=== PATIENT | female | born 1955 | race Caucasian/White ===

== ENCOUNTER 2024-05-12 08:21 | Outpatient (REF) | payer MEDICARE, BC, SELFPAY | END 2024-05-12 08:22 | disposition home or self-care (01) | LOC: HO.SH 08:21 | PROVIDERS: Visit Provider Nurse Practitioner Family | DX: Z01.118 Encounter for examination of ears and hearing with other abnormal findings (principal); H90.3 Sensorineural hearing loss, bilateral | CPT/HCPCS: 92557; 92567 ==

== ENCOUNTER 2024-06-07 10:39 | Outpatient (AMB) | payer MEDICARE, BC, SELFPAY ==
--- NOTE | 2024-06-07 10:47 | MHC.OFFVIS ---
Vital Signs 06/07/24 10:49 Height 5 ft 3 in Weight 202 lb 13.204 oz BMI 35.9 BP 130/62 Blood Pressure Location Lt brachial Position Sitting Pulse 66 Intake Visit Reasons: Colonoscopy Screening Intake Note: [facility] presents a new patient for colonoscopy screening. CC: Patient reports that her last colonoscopy was done about 10 years ago and it was normal. Per patient she sometimes feels like if she was punched on her stomach, she gets epigastric pain with radiation to her chest and jaw. She is taking Omeprazole 40 mg daily. Mangle Roller Required: No Accompanied by: Self / Same As Patient Allergies oxycodone [From PERCOCET] Allergy (Mild, Verified 06/07/24 10:54) PARANOID, ANXIETY SHELLFISH Allergy (Unknown, Uncoded 05/17/20 14:57) PASS OUT HPI HPI Colonoscopy Screening: Details: 68-year-old female here for preprocedural meeting to discuss a screening colonoscopy. She is referred by [facility] in [place]. PMX Morbid obesity-BMI 37 Seizure disorder - r/t TIA only once SIADH (? r/t seizure meds) Hypertension High cholesterol Fatty liver Constipation GERD Depression Cataracts osteopenia OA of knees * SURGICAL HISTORY Cholecystectomy Colonoscopy -2010 [facility]= NORMAL EXAM Esophagogastroduodenoscopy-2010 Hysterectomy Pilonidal cyst Sebaceous cyst head cataract surgery arthroscopic knee surgery * ALLERGIES percocet * [employer] LABS: NONE IN OUR SYSTEM She just had some done at [facility] 06/06 that she shows me on her pt portal with normal renal and hepatic panels. TODAY'S VISIT Her maternal grandmother had CRC and her mother had polyps. I confirm that her last scope was in 2010 and was negative. She tried to get in a [facility] but it had to be rescheduled. She had a negative Cologuard last year. She has been having GERD and epigastric pain that she describes as like someone punched me and it will radiate up to my jaw. This has been for a couple of years. It is calmed somewhat with ice water. The pain is random and not r/t eating or moving her bowels. It can be up to 8/10 intensity for 3 to 5 minutes. No dysphagia. She is 10 years s/p josefa. She suffers CIC that she controls with coconut oil in a vitamin and magnesium. OTC laxative give her stomach cramps and then she will pass a bowel withing 4 hours but she tries not to take these unless I really feel bad. She denies any cardiac or respiratory problems. No ID problems There are no prior problems with anesthesia or sedation. Will order EGD/colnoscopy [facility] Medical History Sebaceous cyst Surgical History S/P pilonidal cyst excision History of hysterectomy History of cholecystectomy H/O esophagogastroduodenoscopy H/O colonoscopy Family History Daughter Thyroid cancer Maternal Grandmother Colostomy in place Paternal Grandmother Diabetes Mother HTN (hypertension) Maternal Grandfather Heart disease Social History Alcohol intake: current Alcohol intake frequency: holidays/special occasions only Patient Tobacco Use Status: Former Tobacco user Review of Systems Const Denies fatigue, Denies fever(s), Denies night sweats, Denies poor appetite and Denies weight loss Eyes Details: glasses Reports requires corrective lenses ENT Reports Normal hearing present, Denies dental pain, Denies dysphagia, Reports dizziness, Denies hearing loss, Denies mouth pain, Denies odynophagia, Denies throat swelling, Denies tongue swelling and Reports other (Dentition adequate) Card Reports no additional complaints Resp Reports no additional complaints GI Details: Reports abdominal pain, Denies melena, Denies bloating, Denies hematochezia, Reports constipation, Denies GI cramping, Denies dysphagia, Denies excessive flatus, Denies early satiety, Reports heartburn, Denies diarrhea, Denies nausea, Denies odynophagia, Denies vomiting and Denies hematemesis Skin/Breast Denies pruritus, Denies lesions, Denies rash and Denies jaundice Neuro Reports Normal hearing present, Denies Abnormal speech present, Reports dizziness and Reports memory loss Psych Reports memory loss Endo Denies fatigue Aller/Immun Denies throat swelling and Denies tongue swelling Physical Exam Vital Signs: Last Vital Signs Pulse 66 06/07/24 10:49 BP 130/62 06/07/24 10:49 BMI result Body Mass Index 35.9 Const General: cooperative, no acute distress, well developed and well groomed Nutritional Appearance: well nourished and obese Orientation/consciousness: oriented to person, oriented to place and oriented to time Limitations: No language barrier HEENT Head: Yes normocephalic and Yes atraumatic Eyes General: appearance normal, both eyes and all related structures Pupils: Equal, round and reactive pupils present Neck Neck: Yes normal visual inspection and Yes no lymphadenopathy Thyroid: Thyroid normal Resp Effort & Inspection: normal respiratory effort and able to speak in complete sentences Auscultation: clear to auscultation bilaterally Cardio Rate: regular rate Rhythm: regular rhythm Heart sounds: Normal, physiologic split S2 sound present Peripheral pulses: radial pulses present and posterior tibial pulses present GI Inspection: No distended, Yes Abdominal panniculus present and Yes obesity Palpation (GI): Soft to palpation, nontender, no guarding, not rigid and No hepatosplenomegaly present Percussion: Yes normal to percussion Auscultation: normal bowel sounds Rectal Exam - Female: deferred Abdomen image: 1. surgical scars 2. 3. Skin General skin exam: no rashes or lesions noted, turgor normal, skin not dry, no jaundice, No spider nevi and no striae Rashes: no rashes Nails: normal Neuro General: oriented to person, oriented to place and oriented to time Cranial nerves: Yes Equal, round and reactive pupils present and Yes Normal hearing present Speech: No Abnormal speech present Extrem General: Yes normal to inspection, No clubbing, No cyanosis and No edema Psych Appearance: grossly normal and well kempt Mental Status: mental status grossly normal Speech and movement: Normal speech and movement present Affect: normal affect Attitude: cooperative Thought process: Normal thought process present and not confabulating Thought content: Normal thought content present Insight: Fair insight present (Psych) Judgement: Fair judgement present (Psych) Assessment & Plan Assessment & Plan (1) Pre-op examination: Code(s): Z01.818 - Encounter for other preprocedural examination Category: Medical (2) Epigastric pain: Code(s): R10.13 - Epigastric pain Category: Medical (3) GERD (gastroesophageal reflux disease): Code(s): K21.9 - Gastro-esophageal reflux disease without esophagitis Category: Medical (4) Morbid obesity: Code(s): E66.01 - Morbid (severe) obesity due to excess calories Category: Medical (5) Seizure disorder: Code(s): G40.909 - Epilepsy, unspecified, not intractable, without status epilepticus Category: Medical Plan Her maternal grandmother had CRC and her mother had polyps. I confirm that her last scope was in 2010 and was negative. She tried to get in a [facility] but it had to be rescheduled. She had a negative Cologuard last year. She has been having GERD and epigastric pain that she describes as like someone punched me and it will radiate up to my jaw. This has been for a couple of years. It is calmed somewhat with ice water. The pain is random and not r/t eating or moving her bowels. It can be up to 8/10 intensity for 3 to 5 minutes. No dysphagia. She is 10 years s/p josefa. She suffers CIC that she controls with coconut oil in a vitamin and magnesium. OTC laxative give her stomach cramps and then she will pass a bowel withing 4 hours but she tries not to take these unless I really feel bad. She denies any cardiac or respiratory problems. No ID problems There are no prior problems with anesthesia or sedation. Will order EGD/colnoscopy Orders: Orders EGD/[place] Combo - GI Use Only Today R10.13 - Epigastric pain, Z01.818 - Encounter for other preprocedural examination [place] barium swallow Today K21.9 - Gastro-esophageal reflux disease without esophagitis Medications: New polyethylene glycol 3350 (Miralax) 238 grams PO ONCE 238 grams 0RF colonoscopy prep 1 day bisacodyl (Dulcolax (bisacodyl)) 10 mg (2 x 5 mg) PO BEDTIME 4 tabs 0RF 2 days Coding Level of Care Code New Pt Level 3 (91017) Diagnoses Pre-op examination Z01.818 Epigastric pain R10.13 GERD (gastroesophageal reflux disease) K21.9 Morbid obesity E66.01 Seizure disorder G40.909
[2024-06-07 10:49] VITALS: BP 130/62; PULSE 66; BMI 35.9
== END 2024-06-07 11:41 | disposition home or self-care (01) ==
PROVIDERS: PCP Hospitalist; Visit Provider Nurse Practitioner
DX: Z01.818 Encounter for other preprocedural examination (principal); R10.13 Epigastric pain; K21.9 Gastro-esophageal reflux disease without esophagitis; E66.01 Morbid (severe) obesity due to excess calories; G40.909 Epilepsy, unspecified, not intractable, without status epilepticus
CPT/HCPCS: 99203

== ENCOUNTER → 2024-06-07 10:39 | Outpatient (BNVA) | payer SELFPAY | PROVIDERS: PCP Hospitalist; Visit Provider Nurse Practitioner | DX: Z01.818 Encounter for other preprocedural examination (principal); R10.13 Epigastric pain; K21.9 Gastro-esophageal reflux disease without esophagitis; E66.01 Morbid (severe) obesity due to excess calories; Z68.35 Body mass index [BMI] 35.0-35.9, adult; G40.909 Epilepsy, unspecified, not intractable, without status epilepticus | CPT/HCPCS: 99202 ==

== ENCOUNTER 2024-08-29 08:20 | Outpatient (REF) | payer MEDICARE, BC, SELFPAY ==
--- NOTE | ~2024-08-29 | FL_ITS ---
EXAMINATION: XR FLUOROSCOPY UPPER GI WITH AIR CLINICAL INFORMATION: Reflux. COMPARISON: None TECHNIQUE: Fluoroscopic air contrast upper GI examination was performed utilizing standard techniques with thin and thick barium and effervescent granules. Numerous spot images were obtained. FINDINGS: Dual and single contrast images of the esophagus demonstrate a mildly patulous esophagus with a normal contour. There is a granular appearance of the esophageal mucosa with multiple well-circumscribed filling defects noted throughout the midesophagus. No strictures, masses, or ulcerations are seen. There is to and fro motion of the barium, with nonpropulsive tertiary contractions noted throughout the esophagus. A small type I hiatal hernia is present. No significant gastroesophageal reflux was seen during the course of the examination and on reflux views. Dual contrast and single contrast images of the stomach demonstrated a normal contour. The gastric rugal folds have a mildly thickened appearance, suggestive of gastritis. No masses or ulcerations are seen. Contrast freely passed into the gastric antrum and duodenal bulb without delay. Single and air-contrast images of the duodenal bulb demonstrate no abnormality. The duodenal sweep has a normal appearance, course, and mucosal fold appearance. The imaged proximal jejunum has a normal fold pattern and caliber. FLUOROSCOPY TIME: 4 minutes 20 seconds Number of Spot Images: 10 Number of Cine: 9 DOSE AREA PRODUCT: 3127 uGy-m2 (microgray-meter squared) FL/FL barium swallow IMPRESSION: 1. Mildly patulous esophagus with severely disorganized esophageal peristalsis consistent with esophageal dysmotility. 2. Granular appearance of the esophageal mucosa with multiple well-circumscribed filling defects noted throughout the midesophagus. This is suggestive of esophagitis. Other etiologies including candidiasis and Arevalo's esophagus cannot be ruled out. Recommend correlation with EGD. 3. Small type I hiatal hernia. 4. Mildly thickened appearance of the gastric rugal folds, suggestive of gastritis. This procedure was performed by Carlos Waldron PA-C, and supervised by Dr. Diggs Electronically signed by: Nishant Diggs MD 08/29/2024 03:15 PM [facility]
--- OUTSIDE RECORDS SUMMARY | 2024-08-29 08:24 | XMS_ITS | Continuity of Care Document ---
Author Organization [facility] Address [address] [place] [address]- Care Team Providers Care [place] Name Role Phone Derek PAINTER, Tiara Primary Care Physician [phone] Encounter [facility] Date(s): 07/29/24 - 08/28/24 [facility] [address] [place] [id number] Attending Physician: AdmtrFelicity Admitting Physician: AdmtrFelicity Referring Physician: Admtr, Ar8 Encounter Type: Triage Allergies, Adverse Reactions, Alerts Substance Criticality Severity Reaction Reaction Severity Status shellfish anaphylaxis Active Bee Stings anaphylaxis Active Percocet Depression Acti ve Immunizations Given and Recorded Vaccine Date Status Refusal Reason influenza virus vaccine, inactivated 05/14/24 Juanito rded influenza virus vaccine, inactivated 05/24/23 Juanito rded influenza virus vaccine, inactivated 05/27/22 Juanito rded influenza virus vaccine, inactivated 05/26/21 Juanito rded influenza virus vaccine, inactivated 05/26/20 Juanito rded influenza virus vaccine, inactivated 1 05/22/18 Gi bhupendra influenza virus vaccine, inactivated 06/04/17 Give n influenza virus vaccine, inactivated 09/09/16 Give n influenza virus vaccine, inactivated 06/28/15 Give n influenza virus vaccine, inactivated 09/22/14 Give n influenza virus vaccine, inactivated 2 08/04/13 Gi bhupendra SARS-CoV-2(COVID-19)mRNA-LNP vac([id number]) 05/14/24 Recorded SARS-CoV-2(COVID-19)mRNA-LNP vac([id number]) 05/24/23 Recorded RSV vaccine preF3, recombinant 08/26/23 Recorded SARS-CoV-2 (COVID-19) mRNA-1273 vaccine 05/27/22 R ecorded SARS-CoV-2 (COVID-19) mRNA-1273 vaccine 08/26/21 R ecorded SARS-CoV-2 (COVID-19) mRNA-1273 vaccine 01/02/21 R ecorded SARS-CoV-2 (COVID-19) mRNA-1273 vaccine 12/04/20 R ecorded Zoster Vaccine Live 3 07/27/20 Recorded zoster vaccine, inactivated 05/26/20 Recorded pneumococcal 13-valent vaccine 4 11/01/19 Given Influenza Virus Vaccine (oldterm) 06/22/19 Recorde d pneumococcal 23-valent vaccine 09/09/16 Given FluLaval (oldterm) 05/11/12 Given FluLaval (oldterm) 07/29/10 Given tetanus/diphtheria/pertussis, acel(Tdap) 11/20/10 Given Influenza Inactive (IM) (oldterm) 07/20/08 Given tetanus-diphtheria toxoids (Td) 07/31/01 Given [facility] 2Admin Note: [facility] 3Result Comment: zoster lot [id number] exp 04-26-2022 [facility] 4Result Comment: [facility]# [id number] Medications (Vitamin D3) Cholecalciferol 400 SNF units/mL oral syringe 1 mL = 10 mcg, By Mouth, Daily, 0 Refills, Maintenance, 03/31/23 8:39:00 AM EDT, Partial fill upon patientrequest if the prescription is for a schedule II opioid drug. Start Date: 03/31/23 Status: Ordered Repeat number: 1 aspirin 81 mg oral tablet 1 tablet = 81 mg, By Mouth, Daily, 0 Refills, Maintenance, 09/08/18 11:19:25 AM EST Start Date: 09/08/18 Status: Ordered Repeat number: 1 busPIRone 7.5 mg oral tablet 1 tablet, By Mouth, 2 times a day, # 180 tablet, 1 Refills, Maintenance, 08/05/24 8:42:00 AM EST, [id number], 160, cm, 08/03/24 7:57:00 EST, Height, 93.3, kg, 07/01/24 8:49:00 EDT, Dry Weight Start Date: 08/05/24 Stop Date: 09/04/24 Status: Ordered Quantity: 180.0 Unit: tablet Repeat number: 1 cholecalciferol 4000 intl units oral tablet 1 tablet = 4,000 International_Units, By Mouth, Daily, Maintenance, 09/29/19 10:33:00 PM EST, Tablet Start Date: 09/29/19 Status: Ordered Repeat number: 1 escitalopram 5 mg oral tablet 1 tablet = 5 mg, By Mouth, Daily, # 90 tablet, 3 Refills, Maintenance, 08/03/24 8:36:00 AM EST, Tablet, [facility]/pharmacy #[id number], Partial fill upon patient request if the prescription is for a schedule II opioid drug., 160, cm, 08/03/24 7:57:00 EST, Height, 93.3, kg, 07/01/24 8:49:00 EDT, Dry Weight Start Date: 08/03/24 Status: Ordered Quantity: 90.0 Unit: tablet Repeat number: 4 Indication: Major depressive disorder, single episode, mild Hemp cream for back Hemp cream for back, Refills 0, Maintenance, 09/24/21 9:57:00 AM EST, Supply Start Date: 09/24/21 Status: Ordered Repeat number: 1 Home Blood Pressure Monitor See Instructions, # 1 each, Maintenance, Arm cuff with digital readout DX : Severe hypertension, 08/16/21 2:25:00 PM EST, Supply Start Date: 08/16/21 Status: Ordered Quantity: 1.0 Unit: each Repeat number: 1 Lotrel 10 mg-40 mg oral capsule 1 capsule, By Mouth, Daily, # 90 capsule, 3 Refills, Maintenance, 08/03/24 8:22:00 AM EST, Capsule, [facility]/pharmacy #[id number], Partial fill upon patient request if the prescription is for a schedule II opioid drug., 1 capsule By Mouth Daily, 160, cm, 08/03/24 7:57:00 EST, Height, 93.3, kg, 07/01/24 8:49:00EDT, Dry Weight Start Date: 08/03/24 Status: Ordered Quantity: 90.0 Unit: capsule Repeat number: 4 Indication: Essential (primary) hypertension Magnesium Carbonate = 54 mg, By Mouth, Daily, 0 Refills, Maintenance, 06/01/20 3:29:00 PM EDT Start Date: 06/01/20 Status: Ordered Repeat number: 1 Misc Rx See Instructions, Refills 0, Maintenance, 07/30/21 11:58:00 AM EST, Supply Start Date: 07/30/21 Status: Ordered Repeat number: 1 omeprazole 40 mg oral enteric coated capsule 1 capsule, By Mouth, Daily, # 90 capsule, 1 Refills, Maintenance, 03/08/24 1:54:00 PM EDT, [id number], 160, cm, 11/16/23 12:43:00 EDT, Height, 91, kg, 09/30/23 7:53:00 EST, Dry Weight Start Date: 03/08/24 Status: Ordered Quantity: 90.0 Unit: capsule Repeat number: 1 rosuvastatin 20 mg oral tablet 1 tablet = 20 mg, By Mouth, Daily, # 90 tablet, 3 Refills, Maintenance, 08/12/24 9:26:00 AM EST, Tablet, [id number], Partial fill upon patient request if the prescription is for a schedule IIopioid drug., 160, cm, 08/03/24 7:57:00 EST, Height, 93.3, kg, 07/01/24 8:49:00 EDT, Dry Weight Start Date: 08/12/24 Stop Date: 08/07/25 Status: Ordered Quantity: 90.0 Unit: tablet Repeat number: 4 Problem List Condition Confirmation Course Effective Dates Status Health Status Informant Anxiety Confirmed Active Cataract bilat Confirmed 2004 Active Cerebrovascular disease Confirmed Active Constipation NOS Confirmed 03/06/11 Active Fatty liver Confirmed Active Gastric reflux Confirmed Active 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 Confirmed Active Hx-TIA (transient ischemic attack) Confirmed Active Hypercholesteremia Confirmed Active Hypertension Confirmed Active Irritable bowel syndrome Confirmed Active Mild major depression Confirmed Active Prediabetes Confirmed Active Severe obesity (BMI 35.0-39.9) with comorbidity Confirmed Active Thyroid nodules - 1 right, 1 left, both TiRads 2018 , no f/u needed Confirmed Active Social History Social History Type Response Smoking Status Former smoker; Other : Quit 1981; entered on: 01/29/18 Sex Sex Representation Female (finding) Patient Care team information Care Team Personnel Name: Sekou Gonzalez MD Position: [facility] Renal MD Member Role: Lifetime Consulting Physician Address: [address] [place] [address] [address] [facility] [place] [address]- [place] Telecom: Name: Luz Elena Higgins RN Position: [facility] RN Member Role: Primary Care Nurse Name: Carlos Shipman RN Position: [facility] Outreach Member Role: Primary Care Nurse Name: Tiara Reed MD Position: [facility] Physician - Primary Care Member Role: PCP Address: [address] [place] [phone]- [place] Telecom: Care Team Related Persons Name: MARCO ANTONIO CAM Name: AGUSTIN JOHNSON Insurance Providers Guarantor name: LYNNE JOHNSON Health Plan Information #: 1 Payer: MEDICARE PART B OUTPT Member Number: NA Policy Number: NA Group Number: NA Health Plan Information #: 2 Payer: BLUE MEDICARE SUPPL Member Number: NA Policy Number: NA Group Number: NA
--- OUTSIDE RECORDS SUMMARY | 2024-08-29 08:24 | XMS_ITS | Continuity of Care Document ---
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 Name Role Phone Derek PAINTER, Tiara Primary Care Physician Encounter [facility] Date(s): 07/25/24 - 08/24/24 [facility] [address] [place] [address] Attending Physician: AdmFelicity mccurdy Admitting Physician: AdmtrFelicity Referring Physician: Admtr, Ar8 [...] influenza virus vaccine, inactivated 2 08/04/13 Gi bhuepndra SARS-CoV-2(COVID-19)mRNA-LNP vac([id number]) 05/14/24 Recorded SARS-CoV-2(COVID-19)mRNA-LNP vac([id number]) 05/24/23 Recorded RSV vaccine preF3, recombinant 08/26/23 [...] [id number] exp 04-26-2022 [facility] 4Result Comment: [facility]# [id number] Medications (Vitamin D3) Cholecalciferol 400 SKILLED NURSING units/mL oral syringe 1 mL = 10 [...] Maintenance, 08/05/24 8:42:00 AM EST, [id number], 160, cm, 08/03/24 7:57:00 EST, Height, 93.3, [...] Refills, Maintenance, 08/03/24 8:36:00 AM EST, Tablet, [facility]/pharmacy #[id number], Partial fill upon patient request [...] Refills, Maintenance, 08/03/24 8:22:00 AM EST, Capsule, [facility]/pharmacy #[id number], Partial fill upon patient request if the prescription is for a schedule II opioid drug., 1 capsule By Mouth Daily, 160, cm, 08/03/24 7:57:00 EST, Height, 93.3, kg, 07/01/24 8:49:00EDT, Dry Weight Start Date: 08/03/24 Status: Ordered Quantity: 90.0 Unit: capsule Repeat number: 4 Indication: Essential (primary) hypertension Magnesium Carbonate = 54 mg, By Mouth, Daily, 0 Refills, Maintenance, 10/2/20 3:29:00 PM EDT Start Date: 06/01/20 Status: Ordered Repeat number: 1 Misc Rx See Instructions, Refills 0, Maintenance, 07/30/21 11:58:00 AM EST, Supply Start Date: 07/30/21 Status: Ordered Repeat number: 1 omeprazole 40 mg oral enteric coated capsule 1 capsule, By Mouth, Daily, # 90 capsule, 1 Refills, Maintenance, 03/08/24 1:54:00 PM EDT, [id number], 160, cm, 11/16/23 12:43:00 EDT, Height, 91, [...] Team Personnel Name: Sekou Gonzalez MD Position: [facility] Renal MD Member Role: Lifetime Consulting Physician Address: [address] [place] [address] [address] [place] [address]- [place] Telecom: Name: Luz Elena Higgins RN Position: [facility] RN Member Role: Primary Care Nurse Name: Carlos Shipman RN Position: [facility] Outreach Member Role: Primary Care Nurse Name: Tiara Reed MD Position: [facility] Physician - Primary Care Member Role: PCP Address: [address] [place] [phone]- Telecom: Care Team Related Persons Name: MARCO ANTONIO CAM Name: AGUSTIN JOHNSON Insurance Providers Guarantor name: LYNNE JOHNSON Health Plan Information #: 1 Payer: MEDICARE PART B OUTPT Member Number: NA Policy Number: NA Group Number: NA Health Plan Information #: 2 Payer: BLUE MEDICARE SUPPL Member Number: NA Policy Number: NA Group Number: NA
--- OUTSIDE RECORDS SUMMARY | 2024-08-29 08:24 | XMS_ITS | Continuity of Care Document ---
Author Organization [facility] Mahendra Pedro lt Address [address] [place] [address]- Care Team Providers Care Medication Tech Name Role Phone Thao MERRITT, Debra Caldwell Primary Care Physician Encounter [facility] [facility] R [id number] Date(s): 07/01/24 - 07/31/24 [facility] Adult [address] [place] [address]- Encounter Type: Triage Allergies, Adverse Reactions, Alerts Substance Criticality Severity Reaction Reaction Severity Status shellfish anaphylaxis Active Bee Stings anaphylaxis Active Percocet 5/ Depression Acti ve Immunizations Given and Recorded [...] vaccine, inactivated 2 08/04/13 Gi bhupendra SARS-CoV-2(COVID-19)mRNA-LNP vac([id number]) 05/14/24 Recorded SARS-CoV-2(COVID-19)mRNA-LNP vac([id number]) 05/24/23 Recorded RSV vaccine preF3, recombinant 08/26/23 [...] tetanus-diphtheria toxoids (Td) 07/31/01 Given 1Admin Note: [facility] 2Admin Note: FLUARIX 3Result Comment: zoster lot [id number] exp 04-26-2022 [facility] 4Result Comment: [facility]# [id number] Medications (Vitamin D3) Cholecalciferol 400 CORRECTION units/mL oral syringe 1 mL = 10 mcg, By Mouth, Daily, 0 Refills, Maintenance, 03/31/23 8:39:00 AM EDT, Partial fill upon patientrequest if the prescription is for a schedule II opioid drug. Start Date: 03/31/23 Status: Ordered Repeat number: 1 amLODIPine 5 mg oral tablet 5 mg, 1, tablet, By Mouth, Daily, # 90 tablet, Refills 3, Tot. Refills 3, Maintenance, 11/16/23 12:51:00 PM EDT, Route to Pharmacy Electronically, [facility]/pharmacy #[id number], Partial fill upon patient requestif the prescription is for a schedule II opioid drug., 160, cm, 11/16/23 12:43:00 EDT, Height, 91, kg, 09/30/23 7:53:00 EST, Dry Weight Start Date: 11/16/23 Status: Ordered Quantity: 90.0 Unit: tablet Repeat number: 4 Indication: Essential (primary) hypertension aspirin 81 mg oral tablet 1 tablet = 81 mg, By Mouth, Daily, 0 Refills, Maintenance, 09/08/18 11:19:25 AM EST Start Date: 09/08/18 Status: Ordered Repeat number: 1 chlorthalidone 25 mg oral tablet 0.5, tablet, By Mouth, Daily, # 45 tablet, Refills 0, Tot. Refills 0, Maintenance, 04/04/24 1:42:00 PM EDT, Route to Pharmacy Electronically, [facility]/pharmacy #[id number], 160, cm, 04/04/24 12:52:00 EDT, Height,91, kg, 09/30/23 7:53:00 EST, Dry Weight Start Date: 04/04/24 Status: Ordered Quantity: 45.0 Unit: tablet Repeat number: 1 Indication: Essential (primary) hypertension cholecalciferol 4000 intl units oral tablet 1 tablet = 4,000 International_Units, By Mouth, Daily, Maintenance, 09/29/19 10:33:00 PM EST, Tablet Start Date: 09/29/19 Status: Ordered Repeat number: 1 escitalopram 20 mg oral tablet See Instructions, TAKE 1 TABLET BY MOUTH EVERY DAY, # 90 tablet, 3 Refills, Maintenance, 12/07/23 11:43:00 AM EDT, [facility] STORE 30065, 160, cm, 11/16/23 12:43:00 EDT, Height, 91, kg, 09/30/23 7:53:00 EST,Dry Weight Start Date: 12/07/23 Status: Ordered Quantity: 90.0 Unit: tablet Repeat number: 1 Hemp cream for back Hemp cream for back, Refills 0, Maintenance, 09/24/21 9:57:00 AM EST, Supply Start Date: 09/24/21 Status: Ordered Repeat number: 1 Home Blood Pressure Monitor See Instructions, # 1 each, Maintenance, Arm cuff with digital readout DX : Severe hypertension, 08/16/21 2:25:00 PM EST, Supply Start Date: 08/16/21 Status: Ordered Quantity: 1.0 Unit: each Repeat number: 1 lisinopril 40 mg oral tablet 1 tablet, By Mouth, Daily, # 90 tablet, 3 Refills, Maintenance, 12/11/23 5:49:00 PM EDT, [facility] STORE [id number], 160, cm, 11/16/23 12:43:00 EDT, Height, 91, kg, 09/30/23 7:53:00 EST, Dry Weight Start Date: 12/11/23 Status: Ordered Quantity: 90.0 Unit: tablet Repeat number: 1 Magnesium Carbonate = 54 mg, By Mouth, [...] 1 Refills, Maintenance, 03/08/24 1:54:00 PM EDT, [facility] STORE [address]2812, 160, cm, 11/16/23 12:43:00 EDT, Height, 91, kg, 09/30/23 7:53:00 EST, Dry Weight Start Date: 03/08/24 Status: Ordered Quantity: 90.0 Unit: capsule Repeat number: 1 rosuvastatin 10 mg oral tablet 1 tablet, By Mouth, Daily, # 90 tablet, 3 Refills, 11/16/23 12:53:00 PM EDT, [facility]/pharmacy #[id number], 160, cm, 11/16/23 12:43:00 EDT, Height, 91, kg, 09/30/23 7:53:00 EST, Dry Weight Start Date: 11/16/23 Status: Ordered Quantity: 90.0 Unit: tablet Repeat number: 4 Indication: Pure hypercholesterolemia, unspecified sucralfate 1 gm oral tablet 1 Gm, 1, tablet, By Mouth, 4 times a day, on an empty stomach, 1 hours prior to meals., # 120 tablet, Refills 0, Tot. Refills 0, Maintenance, 08/18/22 5:54:00 PM EST, Route to Pharmacy Electronically, [facility]/pharmacy #[id number], Partial fill upon patient request if the prescription is for a schedule II opioid drug., 160, cm, 08/18/22 10:46:00 EST, Height Start Date: 08/18/22 Status: Ordered Quantity: 120.0 Unit: tablet Repeat number: 1 Indication: Epigastric pain tiZANidine 4 mg oral tablet 4 mg, 1, tablet, By Mouth, 3 times a day, PRN, # 30 tablet, Refills 0, Tot. Refills 0, Maintenance,Pain , Severe, 11/07/22 3:21:00 PM EST, Route to Pharmacy Electronically, [facility]/pharmacy #[id number], Partial fill upon patient request if the prescription is for a schedule II opioid drug., 160, cm, 11/07/2313:43:00 EST, Height Start Date: 11/07/22 Status: Ordered Quantity: 30.0 Unit: tablet Repeat number: 1 Indication: Other muscle spasm Problem List Condition Confirmation Course Effective Dates Status Health Status Informant Cataract bilat Confirmed 2004 Active Cerebrovascular disease Confirmed Active Constipation NOS Confirmed 03/06/11 Active Fatty liver Confirmed Active Gastric reflux Confirmed Active 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 Confirmed Active Hypercholesteremia Confirmed Active Hypertension Confirmed Active Irritable bowel syndrome Confirmed Active Mild major depression Confirmed Active Severe obesity (BMI 35.0-39.9) with comorbidity Confirmed Active Thyroid nodules - 1 right, 1 left, both TiRads 2018 , no f/u needed Confirmed Active Social History Social History Type Response Smoking Status Former smoker; Other : Quit 1981; entered on: 01/29/18 Sex Sex Representation Female (finding) Patient Care team information Care Team Personnel Name: Carlos PAINTER, Sekou Villalobos Position: [facility] Renal MD Member Role: Lifetime Consulting Physician Address: [address] [place] [address] [address] [place] [address]- Telecom: Name: Luz Elena Higgins RN Position: [facility] RN Member Role: Primary Care Nurse Name: Carlos Shipman RN Position: [facility] Outreach Member Role: Primary Care Nurse Name: Debra Osuna NP Position: [facility] PCO Associate Professional Member Role: PCP Address: [address] [place] [address]- Telecom: Care Team Related Persons Name: MARCO ANTONIO CAM Name: AGUSTIN JOHNSON Insurance Providers Guarantor name: LYNNE JOHNSON Health Plan Information #: 1 Payer: MEDICARE PART B OUTPT Member Number: NA Policy Number: KIM Group Number: NA Health Plan Information #: 2 Payer: BLUE MEDICARE SUPPL Member Number: NA Policy Number: NA Group Number: NA
--- OUTSIDE RECORDS SUMMARY | 2024-08-29 08:24 | XMS_ITS | Continuity of Care Document ---
Author Organization [facility] Pedro lt Address [address] [place] [address]- Care Team Providers Care Field Foreman Name Role Phone Debra Osuna NP Primary Care Physician [phone] Encounter [facility] Date(s): 08/03/24 - 08/10/24 [facility] Adult [address] [place] [address]- Encounter Diagnosis Prediabetes(Discharge Diagnosis) - 08/02/24 Hypertension(Discharge Diagnosis) - 08/02/24 Hypercholesteremia(Discharge Diagnosis) - 08/02/24 Mild major depression(Discharge Diagnosis) - 08/02/24 Severe obesity (BMI 35.0-39.9) with comorbidity(Discharge Diagnosis) - 08/02/24 Gastric reflux(Discharge Diagnosis) - 08/02/24 Encounter to establish care with new doctor(Discharge Diagnosis) - 08/02/24 Anxiety(Discharge Diagnosis) - 08/03/24 Hx-TIA (transient ischemic attack)(Discharge Diagnosis) - 08/03/24 Attending Physician: Tiara Reed MD Encounter Type: Office Visit Allergies, Adverse Reactions, Alerts Substance Criticality Severity Reaction Reaction Severity Status shellfish anaphylaxis Active Bee Stings anaphylaxis Active Percocet 5/325 Depression Acti ve Immunizations Given and Recorded [...] vaccine, inactivated 2 08/04/13 Gi bhupendra SARS-CoV-2(COVID-19)mRNA-LNP vac([id number]) 05/14/24 Recorded SARS-CoV-2(COVID-19)mRNA-LNP vac([id number]) 05/24/23 Recorded RSV vaccine preF3, recombinant 08/26/23 [...] 9h3z4 exp 04-26-2022 [facility] 4Result Comment: [facility]# [id number] Medications (Vitamin D3) Cholecalciferol 400 RESIDENTIAL units/mL oral syringe 1 mL = 10 [...] 1 Refills, Maintenance, 08/05/24 8:42:00 AM EST, [facility] STORE [facility], 160, cm, 08/03/24 7:57:00 EST, Height, 93.3, [...] Refills, Maintenance, 08/03/24 8:36:00 AM EST, Tablet, [facility]/pharmacy #[id number], Partial fill upon patient request [...] Refills, Maintenance, 08/03/24 8:22:00 AM EST, Capsule, [id number], Partial fill upon patient request [...] Maintenance, 03/08/24 1:54:00 PM EDT, [facility], 160, cm, 11/16/23 12:43:00 EDT, Height, 91, kg, 09/30/23 7:53:00 EST, Dry Weight Start Date: 03/08/24 Status: Ordered Quantity: 90.0 Unit: capsule Repeat number: 1 rosuvastatin 20 mg oral capsule 1 capsule = 20 mg, By Mouth, Daily, # 90 capsule, 3 Refills, Maintenance, 08/03/24 8:27:00 AM EST, Capsule, [id number], Partial fill upon patient request if the prescription is for a schedule II opioid drug., 160, cm, 08/03/24 7:57:00 EST, Height, 93.3, kg, 07/01/24 8:49:00 EDT, Dry Weight Start Date: 08/03/24 Status: Ordered Quantity: 90.0 Unit: capsule Repeat number: 4 Indication: Pure hypercholesterolemia, unspecified Problem List Condition Confirmation Course Effective Dates [...] 2018 , no f/u needed Confirmed Active Diagnosis Diagnosis Type Effective Dates Health Status Clinical Service Informant Prediabetes Discharge Diagnosis 08/02/24 Hypertension Discharge Diagnosis 08/02/24 Hypercholesteremia Discharge Diagnosis 08/02/24 Mild major depression Discharge Diagnosis 08/02/24 Severe obesity (BMI 35.0-39.9) with comorbidity Discharge Diagnosis 08/02/24 Gastric reflux Discharge Diagnosis 08/02/24 Encounter to establish care with new doctor Discharge Diagnosis 08/02/24 Anxiety Discharge Diagnosis 08/03/24 Hx-TIA (transient ischemic attack) Discharge Diagnosis 08/03/24 Vital Signs Most recent to oldest [Reference Range]: 1 Height 160 cm (08/03/24 7:57 AM) Weight 94.9 kg (08/03/24 7:57 AM) Oxygen Saturation [94-100 %] 99 % (08/03/24 7:57 AM) Pulse Rate [55-90 bpm] 68 bpm (08/03/24 7:57 AM) Body Mass Index [18.5-24.99 kg/m2] 37.07 kg/m2 *>HHI* (08/03/24 7:57 AM) Blood Pressure [90-138/55-84 mm Hg] 148/ 81mm Hg *H* (08/03/24 7:57 AM) Blood pressure sites Arm, left (08/03/24 7:57 AM) Weight Obtained Via Standing scale (08/03/24 7:57 AM) Social History Social History Type Response Smoking Status Former smoker; Other : Quit 1981; entered on: 01/29/18 Sex Sex Representation Female (finding) Note * Everton Estrada: PERFORM Event Display: Patient Education/Instruction Authored Date: [id number] Ambulatory Adult Visit Summary [facility] Adult [address] [id number] Name: LYNNE JOHNSON : 1955?? Visit: 08/03/2024 07:44?? Ambulatory Visit Instructions ?? Your Care Team Primary Care Provider Debra Osuna NP? This Visit Provider Tiara Reed MD Your Diagnosis Prediabetes Hypertension Hypercholesteremia Mild major depression Severe obesity (BMI 35.0-39.9) with comorbidity Gastric reflux Encounter to establish care with new doctor Anxiety Vitals Signs Pulse Rate: 68 bpm Height: 160 cm Systolic Blood Pressure:??148 mm Hg??High Weight: 94.9 kg Diastolic Blood Pressure: 81 mm Hg Body Mass Index:??37.07 kg/m2??Critical Oxygen Saturation: 99 % Body surface area: 2.05 What to do next Scheduled Follow-Up Appointments 2024 7:40 AM EST ?? Where: [facility] [address] [place] [address]- Status: Pending Thursday 11:00 AM EST ?? With: Tiara Reed MD Where: [address] [address]- Status: Pending Future Orders Lipid Panel - Routine, Once, 11/16/23 12:55:00 EDT, Future Order, [facility], Blood?? Lipid Panel - Routine, Once, 04/04/24 14:37:00 EDT, Future Order, [facility], Blood?? Medications The list below reflects the information in our records and provided by you today along with any changes made during this visit. Please continue your medications until treatment is completed or stopped by your provider. If this is different from the information you have or there are other questions,please contact the prescribing provider. What How Much When Why Instructions New Amlodipine-Benazepril (Lotrel 10 mg-40 mg oral capsule) 1 capsule Oral Daily Hypertension Refills: 3 Pickup at [facility]/pharmacy #[id number] New BusPIRone (busPIRone 7.5 mg oral tablet) 1 tab(s) Oral Twice a day Anxiety Duration: 30 Days Refills: 3 Pickup at [facility]/pharmacy #[id number] New Escitalopram (escitalopram 5 mg oral tablet) 1 tab(s) Oral Daily Mild major depression Refills: 3 Pickup at [facility]/pharmacy #[id number] New Rosuvastatin (rosuvastatin 20 mg oral capsule) 1 capsule Oral Daily Hypercholesteremia Refills: 3 Pickup at [facility]/pharmacy #[id number] Unchanged Aspirin (aspirin 81 mg oral tablet) 1 tab(s) Oral Daily Unchanged Cholecalciferol ((Vitamin D3) Cholecalciferol 400 RESIDENTIAL units/ mL oral syringe 1 mL) 10 Microgram Oral Daily Unchanged Cholecalciferol (cholecalciferol 4000 intl units oral tablet) 1 tab(s) Oral Daily Unchanged Durable Medical Equipment (Home Blood Pressure Monitor) See instructions Arm cuff with digital readout DX : ??Severe hypertension ?? Unchanged Magnesium Carbonate 54 Milligram Oral Daily Unchanged Miscellaneous Rx (Hemp cream for back) Unchanged Miscellaneous Rx (Misc Rx) See instructions Unchanged Omeprazole (omeprazole 40 mg oral enteric coated capsule) 1 capsule Oral Daily Pharmacy Information [facility]/pharmacy #[id number]: [address] [place] [id number] [phone] Medications and Immunizations Administered Medications Given During Visit No medications given during this visit.?? Allergies (NKA means No Known Allergies) Bee Stings??(anaphylaxis) Percocet ??(Depression) shellfish??(anaphylaxis) Common Emergency Awareness Tips IS IT A STROKE? Act FAST and Check for these signs: FACE Does the face look uneven? ARM Does one arm drift down? SPEECH Does their speech sound strange? TIME Call at any sign of stroke ?? Heart Attack Signs Chest discomfort: Most heart attacks involve discomfort in the center of the chest and lasts more than a few minutes, or goes away and comes back. It can feel like uncomfortable pressure, squeezing, fullness or pain. Discomfort in upper body: Symptoms can include pain or discomfort in one or both arms, back, neck, jaw or stomach. Shortness of breath: With or without discomfort. Other signs: Breaking out in a cold sweat, nausea, or lightheaded. Remember, MINUTES DO MATTER. If you experience any of these heart attack warning signs, call to get immediate medical attention! ?? Smoking can increase your chances of developing chronic health problems and can cause harmful effects to other family members in your house. If you smoke, you are strongly encouraged to quit. Please call [facility] at [phone] or [phone] ([phone]) or log in to [email or web address] for referrals to smoking cessation programs. ?? The National Suicide Prevention Hotline is available 23/03 if you or someone you know needs to find a reason to keep living. By calling 7-213-828-VideoNot.es (6206) you'll be connected to a skilled, trained counselor at a crisis center in your area. [facility] Portal You can view and manage your care through the patient portal or by using a health care dax of your choosing. [employer] is a website that allows you to securely view your medical information including your hospital discharge summary, office visit summaries, medications and follow-up visits. You can also request appointments, renew medications, and request access to your medical information using a health care dax of your choosing, or just ask a question. You can enroll at [email or web address] or register during your next office visit. [facility], in keeping with [facility] guidance, no longer requires face masks for staff, patientsor visitors in most situations. Similiar to time spent indoors at other locations, there is the chance that you were exposed to repiratory viruses during your time with us (such as flu or COVID-19). If you develop symptoms concerning for a viral respiratory infection, please seek testing (and treatment if indicated) from your medical provider or home test kit. ?? Disclaimer: The information provided is of a general nature and is intended to be used in conjunction with the recommendations and advice of your health care practitioner. Every effort has been made to ensure that the information provided is accurate and complete at the time it is provided to you however, as your needs change, or, as new information becomes available, different or additional instructions may be required. ?? If you have questions, please consult with your primary care provider or pharmacist, as appropriate. This information is not intended to serve as substitution for assessment and evaluation by a qualified health care provider. If you do not have a primary care provider, you may find a [facility] provider by calling [facility] at [phone]. Patient Care team information Care Team Personnel Name: Sekou Gonzalez MD Position: [facility] Renal MD Member Role: Lifetime Consulting Physician Address: [address] [place] [address] [address] [facility] [place] [address]- [place] Telecom: Name: Higgins RN, Luz Elena Position: [facility] RN Member Role: Primary Care Nurse Name: Carlos Shipman RN Position: [facility] Outreach Member Role: Primary Care Nurse Name: Debra Osuna NP Position: [facility] PCO Associate Professional Member Role: PCP Address: [address] [place] [address]- Telecom: Care Team Related Persons Name: MARCO ANTONIO CAM Name: AGUSTIN JOHNSON Insurance Providers Guarantor name: LYNNE JOHNSON Health Plan Information #: 2 Payer: BLUE MEDICARE SUPPL Member Number: [id number] Policy Number: NA Group Number: [id number] Health Plan Information #: 1 Payer: MEDICARE PART B OUTPT Member Number: [id number] Policy Number: NA Group Number: NA
--- OUTSIDE RECORDS SUMMARY | 2024-08-29 08:24 | XMS_ITS | Continuity of Care Document ---
Author Organization [facility] Address [address] [place] [address]- Care Team Providers Care Open Hearth Stockyard Supervisor Name Role Phone Derek PAINTER, Tiara Primary Care Physician Encounter [place] Date(s): 06/20/24 - 08/24/24 [facility] [address] [place] [address] Attending Physician: Robbie Longoria MD Admitting Physician: Robbie Longoria MD Referring Physician: Debra Osuna NP Encounter Type: Pre-OutPatient One Time Allergies, Adverse Reactions, Alerts Substance Criticality Severity [...] vaccine, inactivated 2 08/04/13 Gi bhupendra SARS-CoV-2(COVID-19)mRNA-LNP vac([id number]) 05/14/24 Recorded SARS-CoV-2(COVID-19)mRNA-LNP vac([id number]) 05/24/23 Recorded RSV vaccine preF3, recombinant 08/26/23 [...] 9h3z4 exp 04-26-2022 [facility] Comment: [facility]# [id number] Medications (Vitamin D3) Cholecalciferol 400 LONG-TERM units/mL oral syringe 1 mL = 10 [...] Maintenance, 08/05/24 8:42:00 AM EST, [facility], 160, cm, 08/03/24 7:57:00 EST, Height, 93.3, [...] Refills, Maintenance, 08/03/24 8:36:00 AM EST, Tablet, [facility]/pharmacy #[id number], Partial fill upon patient request [...] Refills, Maintenance, 08/03/24 8:22:00 AM EST, Capsule, [facility]/pharmacy #[id number], Partial fill upon patient request [...] Maintenance, 03/08/24 1:54:00 PM EDT, [facility], 160, cm, 11/16/23 12:43:00 EDT, Height, 91, [...] Personnel Name: Carlos PAINTER, Sekou Villalobos Position: [facility] Renal MD Member Role: Lifetime Consulting Physician Address: [address] [place] [address] [address] [place] [address]- [place] Telecom: Name: Luz Elena Higgins RN Position: [facility] RN Member Role: Primary Care Nurse Name: Umberto PARKER, Carlos Position: [facility] Outreach Member Role: Primary Care Nurse Name: Tiara Reed MD Position: [facility] Physician - Primary Care Member Role: PCP Address: [address] [place] [address]- [place] Telecom: Care Team Related Persons Name: MARCO ANTONIO CAM Name: AGUSTIN JOHNSON Insurance Providers Guarantor name: LYNNE JOHNSON Health Plan Information #: 1 Payer: MEDICARE PART B OUTPT Member Number: [id number] Policy Number: NA Group Number: NA Health Plan Information #: 2 Payer: [employer] [employer] Member Number: [id number] Policy Number: NA Group Number: [id number]
--- OUTSIDE RECORDS SUMMARY | 2024-08-29 08:24 | XMS_ITS | Continuity of Care Document ---
Author Organization [facility] em Address Unknown Care Team Providers Care Box Annealer Name Role Phone Thao MERRITT, Debra Caldwell Primary Care Physician Encounter [facility] Date(s): 07/01/24 - 07/31/[address] [address] Attending Physician: AdmtrFelicity Admitting Physician: Admtr, Felicity Referring Physician: Admtr, [id number] Encounter Type: Triage [...] vaccine, inactivated 2 08/04/13 Gi bhupendra SARS-CoV-2(COVID-19)mRNA-LNP vac([id number]) 05/14/24 Recorded SARS-CoV-2(COVID-19)mRNA-LNP vac([id number]) 05/24/23 Recorded RSV vaccine preF3, recombinant 08/26/23 [...] tetanus-diphtheria toxoids (Td) 07/31/01 Given 1Admin Note: [facility] 2Admin Note: FLUARIX 3Result Comment: zoster lot [id number] exp 04-26-2022 [facility] 4Result Comment: [facility]# [id number] Medications (Vitamin D3) Cholecalciferol 400 CUSTODIAL units/mL oral syringe 1 mL = 10 [...] 12:51:00 PM EDT, Route to Pharmacy Electronically, [facility] #[id number], Partial fill upon patient requestif the prescription [...] 1:42:00 PM EDT, Route to Pharmacy Electronically, [facility] #[id number], 160, cm, 04/04/24 12:52:00 EDT, Height,91, [...] 3 Refills, Maintenance, 12/07/23 11:43:00 AM EDT, [id number], 160, cm, 11/16/23 12:43:00 EDT, Height, 91, [...] 3 Refills, Maintenance, 12/11/23 5:49:00 PM EDT, [id number], 160, cm, 11/16/23 12:43:00 EDT, Height, 91, [...] 1 Refills, Maintenance, 03/08/24 1:54:00 PM EDT, [id number], 160, cm, 11/16/23 12:43:00 EDT, Height, 91, kg, 09/30/23 7:53:00 EST, Dry Weight Start Date: 03/08/24 Status: Ordered Quantity: 90.0 Unit: capsule Repeat number: 1 rosuvastatin 10 mg oral tablet 1 tablet, By Mouth, Daily, # 90 tablet, 3 Refills, 11/16/23 12:53:00 PM EDT, [facility] #[id number], 160, cm, 11/16/23 12:43:00 EDT, Height, [...] 5:54:00 PM EST, Route to Pharmacy Electronically, [facility] #[id number], Partial fill upon patient request if [...] 3:21:00 PM EST, Route to Pharmacy Electronically, [facility] #[id number], Partial fill upon patient request if the [...] Team Personnel Name: Sekou Gonzalez MD Position: [facility] Renal MD Member Role: Lifetime Consulting Physician Address: [address] [place] [address] [address] [place] [address]- Telecom: Name: Luz Elena Higgins RN Position: [facility] RN Member Role: Primary Care Nurse Name: Carlos Shipman RN Position: [facility] Outreach Member Role: Primary Care Nurse Name: Debra Osuna NP Position: [facility] PCO Associate Professional Member Role: PCP Address: [address] [place] [address]- Telecom: Care Team Related Persons Name: MARCO ANTONIO CAM Name: AGUSTIN JOHNSON Insurance Providers Guarantor name: LYNNE JOHNSON Health Plan Information #: 1 Payer: MEDICARE PART B OUTPT Member Number: NA Policy Number: NA Group Number: NA Health Plan Information #: 2 Payer: BLUE MEDICARE SUPPL Member Number: NA Policy Number: NA Group Number: NA
== END 2024-08-29 08:21 | disposition home or self-care (01) ==
LOC: HO.XRAY 08:20
PROVIDERS: Visit Provider Nurse Practitioner
DX: K21.9 Gastro-esophageal reflux disease without esophagitis (principal)
CPT/HCPCS: 74220

== ENCOUNTER → 2024-08-29 08:23 | Outpatient (BNV) | payer MEDICARE, BC, SELFPAY | PROVIDERS: Visit Provider Physician Assistant Surgical | DX: K21.00 Gastro-esophageal reflux disease with esophagitis, without bleeding (principal) | CPT/HCPCS: 74246 ==

== ENCOUNTER 2024-09-27 09:18 | Day surgery (SDC) | payer MEDICARE, BC, SELFPAY ==
--- NOTE | 2024-09-26 10:05 | HO.ANESPROP2 ---
Documented by User: Chantel Armendariz NP 09/26/24 10:09 HPI - Anesthesia Eval Consult details Narrative: 69yo F for Upper Endoscopy and Colonoscopy [facility] Active Problems Active Problems: All Active Problems Epigastric pain (Acute) Pre-op examination (Acute) Depression (Acute) Osteopenia (Acute) Fatty liver disease, nonalcoholic (Acute) Cataracts, bilateral (Acute) Constipation (Acute) GERD (gastroesophageal reflux disease) (Acute) High cholesterol (Acute) Hypertension (Acute) SIADH (syndrome of inappropriate ADH production) (Acute) Seizure disorder (Acute) Morbid obesity (Acute) Past Medical History Medical History Morbid obesity Seizure disorder SIADH (syndrome of inappropriate ADH production) GERD (gastroesophageal reflux disease) Hypertension High cholesterol Depression Sebaceous cyst Family History Family History Daughter Thyroid cancer Maternal Grandmother Colostomy in place Paternal Grandmother Diabetes Mother HTN (hypertension) Maternal Grandfather Heart disease Surgical History Surgical History S/P pilonidal cyst excision History of hysterectomy History of cholecystectomy H/O esophagogastroduodenoscopy H/O colonoscopy Social History Social History Are you a primary healthcare advisory services manager to a significant other at home: No Do you presently have visiting nurse or other home services: No Alcohol intake: current Alcohol intake frequency: holidays/special occasions only Patient Tobacco Use Status: Former Tobacco user Have you been hit, kicked, punched, or otherwise hurt by someone within the past year? If so, by whom?: No Are you DNR?: No Advance Directives: No Advance Directives Information Provided: Yes Recently lost weight without trying: No Nutrition Risks: No Nutritional Risk Meds Allergies Allergy/AdvReac Type Severity Reaction Status Date / Time oxycodone [From PERCOCET] Allergy Mild PARANOID, Verified 09/27/24 11:09 ANXIETY SHELLFISH Allergy Unknown PASS OUT Uncoded 09/27/24 11:09 Home Medications ?Medication ?Instructions ?Recorded ?Confirmed ?Last Taken ?Type amlodipine 5 mg tablet 5 mg PO DAILY 06/07/24 09/27/24 09/27/24 History aspirin 81 mg capsule 81 mg PO DAILY 06/07/24 09/27/24 09/24/24 History cholecalciferol (vitamin D3) 25 25 mcg PO DAILY 06/07/24 09/27/24 Unknown History mcg (1,000 unit) capsule escitalopram oxalate 10 mg tablet 10 mg PO DAILY 06/07/24 09/27/24 Unknown History lisinopril 20 mg tablet 20 mg PO DAILY 06/07/24 09/27/24 Unknown History omeprazole 40 mg capsule,delayed 40 mg PO DAILY 06/07/24 09/27/24 Unknown History release rosuvastatin 20 mg tablet 20 mg PO DAILY 06/07/24 09/27/24 Unknown History Exam Pertinent Lab Results Pertinent Lab Results: CMP 06/30/24 from outside facility [place] Assessment and Plan Assessment Anesthesia Assessment: Chart Reviewed Documented by User: Cindi Florian MD 09/27/24 13:13 PMFSH Active Problems Active Problems: All Active Problems Epigastric pain (Acute) Pre-op examination (Acute) Depression (Acute) Osteopenia (Acute) Fatty liver disease, nonalcoholic (Acute) Cataracts, bilateral (Acute) Constipation (Acute) GERD (gastroesophageal reflux disease) (Acute) High cholesterol (Acute) Hypertension (Acute) SIADH (syndrome of inappropriate ADH production) (Acute) Seizure disorder (Acute) Morbid obesity (Acute) Denies ZEESHAN Past Medical History Medical History Morbid obesity Seizure disorder SIADH (syndrome of inappropriate ADH production) GERD (gastroesophageal reflux disease) Hypertension High cholesterol Depression Sebaceous cyst Family History Family History Daughter Thyroid cancer Maternal Grandmother Colostomy in place Paternal Grandmother Diabetes Mother HTN (hypertension) Maternal Grandfather Heart disease Family history of problems with anesthesia: No Surgical History Surgical History S/P pilonidal cyst excision History of hysterectomy History of cholecystectomy H/O esophagogastroduodenoscopy H/O colonoscopy History of Problems with Anesthesia: No Social History Social History Are you a primary healthcare advisory services manager to a significant other at home: No Do you presently have visiting nurse or other home services: No Alcohol intake: current Alcohol intake frequency: holidays/special occasions only Patient Tobacco Use Status: Former Tobacco user Have you been hit, kicked, punched, or otherwise hurt by someone within the past year? If so, by whom?: No Are you DNR?: No Advance Directives: No Advance Directives Information Provided: Yes Recently lost weight without trying: No Nutrition Risks: No Nutritional Risk Meds Allergies Allergy/AdvReac Type Severity Reaction Status Date / Time oxycodone [From PERCOCET] Allergy Mild PARANOID, Verified 09/27/24 11:09 ANXIETY SHELLFISH Allergy Unknown PASS OUT Uncoded 09/27/24 11:09 Home Medications ?Medication ?Instructions ?Recorded ?Confirmed ?Last Taken ?Type amlodipine 5 mg tablet 5 mg PO DAILY 06/07/24 09/27/24 09/27/24 History aspirin 81 mg capsule 81 mg PO DAILY 06/07/24 09/27/24 09/24/24 History cholecalciferol (vitamin D3) 25 25 mcg PO DAILY 06/07/24 09/27/24 Unknown History mcg (1,000 unit) capsule escitalopram oxalate 10 mg tablet 10 mg PO DAILY 06/07/24 09/27/24 Unknown History lisinopril 20 mg tablet 20 mg PO DAILY 06/07/24 09/27/24 Unknown History omeprazole 40 mg capsule,delayed 40 mg PO DAILY 06/07/24 09/27/24 Unknown History release rosuvastatin 20 mg tablet 20 mg PO DAILY 06/07/24 09/27/24 Unknown History Exam Height,Weight and Vital Signs: Height 5 ft 3 in Weight 89.358 kg Vital Signs Temp Pulse Resp BP Pulse Ox O2 Del Method 09/27/24 11:17 97.7 F 82 18 148/87 H 97 Room Air Pertinent Lab Results Pertinent Lab Results: CMP 06/30/24 from outside facility [place] Airway Mallampati Class: III TM Dist: >3cm Neck ROM: Full Loose/Missing/Broken Teeth: No Heart: RRR Lungs: CTAB Assessment and Plan Assessment Anesthesia Assessment: Anesthesia Plan Discussed and Chart Reviewed Final Anesthetic Review Family History of Problems with Anesthesia: No History of Problems with Anesthesia: No NPO: Yes ASA Class: III Final Preanesthetic Review: No Changes in Pt Med Stat, Meds/Allgs Chart Reviewed, Consent Obtained/Reviewed and Anes Risks/Benef Reviewed Patient Risk: Intermediate Procedure Risk: Low Assessment/Block/Sedation in SS: Assess/Block/Sedation-SS Anesthetic Plan Anesthetic Plan: TIVA Disposition: Standard PACU
--- OUTSIDE RECORDS SUMMARY | 2024-09-27 09:48 | XMS_ITS | Clinical Summary ---
Author Organization [facility] Address [address] [place] [address] Care Team Providers Care Client Delivery Specialist Name Role Phone Unavailable Primary Care Provider Unavailabl e Source Comments PLEASE NOTE, if this patient is a minor, it may be UNLAWFUL to discuss sensitive information that is contained in these records (such as FAMILY PLANNING, MENTAL HEALTH or SUBSTANCE ABUSE) with the minor patient's parent or other person without the patient's specific authorization.[facility] Immunizations Name Administration Dates Next Due Moderna COVID-19 Vaccine, re d cap blue label, 12+ Primary Series 01/02/2021,12/04/2020 Social History Tobacco Use Types Packs/Day Years Used Date Smoking Tobacco: Never Assessed Social Connections Answer Date Recorded Social Connections and Isolation 0 12/04/2020 Financial Resource Strain Answer Date R ecorded Financial Resource Strain 0 2020 Stress Answer Date Recorded Stress 0 12/04/2020 Physical Activity Answer Date Recorded Physical Activity 0 12/04/2020 Food Insecurity Answer Date Recorded Food 0 12/04/2020 Transportation Needs Answer Date Record ed Transportation 0 12/04/2020 Housing Stability Answer Date Recorded Housing 0 12/04/2020 Safety and Environment Answer Date Juanito rded Safety 0 12/04/2020 Utilities Answer Date Recorded Utilities 0 12/04/2020 Employment Answer Date Recorded Employment 0 12/04/2020 Comments Unknown Sex and Gender Information Value Date Recorded Sex Assigned at Not on file Legal Sex Female 10:28 AM PDT Gender Identity Not on file Sexual Orientation Not on file Plan of Treatment Health Maintenance Due Date Last Done Comments Diabetes Screening 1954 Hepatitis C Screening 1954 Lipid Screening 1954 Tobacco Screening 1954 Annual Preventive Care Visit 1972 Hypertension Screening (#1) 1972 Imm-DTaP/Tdap/Td (1 - Tdap) 1973 Breast Cancer Screening (Mammogram) 1994 CT Colonography 1999 Colonoscopy 1999 Colorectal Cancer Screening 1999 FIT/gFOBT 1999 Fecal DNA 1999 Flexible Sigmoidoscopy 1999 Imm-Pneumococcal 65+ (1 of 1 - PCV) 2004 Bone Density Screening 2019 Falls Prevention 2019 [id number] ( season) 2024 021, 12/04/2020 Imm-Influenza (#1) 2024 05/26/2020, 1 , 05/22/2018 Alcohol and Drug Screen 08/31/2024 Depression Annual Screen 08/31/2024 Imm-Zoster, Recombinant Completed 07/27/2020, 05/26 Insurance [facility] Member Subscriber Plan / Payer (Ef fective 2019-Present) Name:Va Felix Relation to Subscriber:Self Name:Va Felix Payer ID:[id number] Group ID:[id number] Type:Indemnity Address: [facility] [address] [place] [address]
--- OUTSIDE RECORDS SUMMARY | 2024-09-27 09:48 | XMS_ITS | Clinical Summary ---
Author Organization [facility] ity Address [address] [place] [address] Care Team Providers Care Solid Waste Landfill Technician Name Role Phone Unavailable Primary Care Provider Unavailabl e Social History Tobacco Use Types Packs/Day Years Used Date Smoking Tobacco: Never Assessed Sex and Gender Information Value Date Recorded Sex Assigned at Not on file Gender Identity Not on file Sexual Orientation Not on file Plan of Treatment Health Maintenance Due Date Last Done Comments Breast Cancer Screening 1954 DTaP,Tdap,and Td Vaccines (1 - Tdap) 1973 Zoster Vaccines (1 of 2) 2004 Pneumococcal Vaccine: 65+ Ye ars (1 of 1 - PCV) 2019 Colorectal Cancer Screening: Colonoscopy 08/02/2022 Depression Screening 08/02/2022 Falls Risk Assessment 08/02/2022 Hepatitis C Screening 08/02/2022 Osteoporosis Screening (Bone Density Screening) 08/02/2022 Social Influencers of Health Screening 08/02/2022 COVID-19 Vaccine ( - 2023-2 5 season) 2024 Influenza Vaccine (#1) 2024 RSV Immunization Patients 60 + Years Old (1 - 1-dose 75+ series) 2029 HIB Vaccines Aged Out No longer eligi ble based on patient's age to complete this topic HPV Vaccines Aged Out No longer eligi ble based on patient's age to complete this topic Hepatitis A Vaccines Aged Out No long er eligible based on patient's age to complete this topic Hepatitis B Vaccines Aged Out No long er eligible based on patient's age to complete this topic IPV Vaccines Aged Out No longer eligi ble based on patient's age to complete this topic MMR Vaccines Aged Out No longer eligi ble based on patient's age to complete this topic Meningococcal ACWY Vaccine Aged Out N o longer eligible based on patient's age to complete this topic RSV Immunization Patients Un roland 20 months Aged Out No longer eligible b ased on patient's age to complete this topic Varicella Vaccines Aged Out No longer eligible based on patient's age to complete this topic
[2024-09-27 11:17] VITALS: BP 148/87; PULSE 82; RESP 18; TEMP 36.5; O2SAT 97
[2024-09-27] MEDS: Lactated Ringers 1,000 ML 100 ML IVCONT (11:18)
[2024-09-27 11:30] VITALS: BMI 34.9
--- NOTE | 2024-09-27 12:00 | MHC.SHP ---
Pre-Procedural Eval Section A - 24 Hr Update-Section A only Date of Service: 09/27/24 Section B - Complete if H&P > 30 days Chief Complaint: gerd,screening Details of Present Illness: PMX Morbid obesity-BMI 37 Seizure disorder - r/t TIA only once SIADH (? r/t seizure meds) Hypertension High cholesterol Fatty liver Constipation GERD Depression Cataracts osteopenia OA of knees * SURGICAL HISTORY Cholecystectomy Colonoscopy -2010 [facility]= NORMAL EXAM Esophagogastroduodenoscopy-2010 Hysterectomy Pilonidal cyst Sebaceous cyst head cataract surgery arthroscopic knee surgery * ALLERGIES percocet * Present Medications: see Short Stay Collaborative assessment Allergies: Allergies Allergy/AdvReac Type Severity Reaction Status Date / Time oxycodone [From PERCOCET] Allergy Mild PARANOID, Verified 09/27/24 11:09 ANXIETY SHELLFISH Allergy Unknown PASS OUT Uncoded 09/27/24 11:09 Review of Systems Review of Systems Comment: Ten point ROS negative Exam Exam Comment: Gen appear: No acute distress HEENT: no icterus Chest: No overt resp distress Abd: soft, nontender, nondistended Psych: Stable affect, answering questions appropriately Neuro: A/Ox3 noted to move all extremities spontaneously Ext: no peripheral edema Plan Diagnosis/Plan: Unchanged I have reviewed the history and physical and performed a pertinent physical examination on my patient. No changes have occurred unless specified. Time Spent With Patient Time: Total time managing care of this patient today ____ minutes.
--- NOTE | 2024-09-27 13:59 | P.OPN-COLO_ITS ---
Colonoscopy Operative Note Operative Note Date of Service: 09/27/24 Narrative: Procedure: Upper endoscopy and colonoscopy Indication: Abd pain, screening Endoscopist: Comfort Ivey MD Anesthesia Provider: Cindi Florian MD Anesthesia type: MAC Instrument: [id number] and [id number] EGD Procedure:?? The procedure, indications, preparation and potential complications were reviewed with the patient, who indicated understanding and gave written informed consent to proceed. The endoscope was introduced through the mouth, and advanced to the 2nd part of the duodenum. The mucosa was carefully examined on slow withdrawal of the endoscope. The patient tolerated the procedure well. There were no immediate complications.? EGD Findings:? * Esophagus:? Whitish nodules/plaques measuring 4-5 mm noted throughout the esophagus ? Glycogenic acanthosis versus lichen planus. The Z-line was at 38 cm. There was a small hiatal hernia with the diaphragmatic pinch at 40 cm. Cold forceps biopsies were taken for histology. * Stomach:? Erythema and erosions in the antrum. Retroflexion was performed in the cardia. Random cold forceps biopsies were taken from the stomach. * Duodenum:? Normal duodenal mucosa. Cold forceps biopsies were taken from the duodenal bulb and 2nd portion of the duodenum to rule out celiac sprue. Colonoscopy Procedure:? The patient was then turned for the colonoscopy. A digital rectal exam was performed which was abnormal for external hemorrhoids.? A distal attachment cap was affixed to the tip of the scope and the colonoscope was then inserted through the anus and advanced through the colon and advanced to the cecum at 80 cm and terminal ileum.? Appendiceal orifice and ileocecal valve were identified. Mucosa was carefully examined under high definition white light as the instrument was slowly withdrawn in a retrograde panoramic fashion. Retroflexion was performed in rectum. The procedure was not difficult. The quality of the prep was BBPS: 2+2+3 = adequate Withdrawal time 30 minutes Limitations: No limitations Findings: Mucosa: Normal colon and terminal ileum mucosa. Protruding lesions: * A 2 cm laterally spreading polyp with mixed granular and nodular appearance in the hepatic flexure was noted with folds converging towards the polyp. Tamra 0+ IIa. The base of the polyp was raised with eleview but the center of the polyp did not lift suspicious for invasive disease. Hot snare polypectomy was performed for piecemeal removal of the polyp. The central, flat/slightly depressed area of the polyp measuring 5-6 mm could not be removed despite using different snares. The remaining polypectomy defect was closed with an Endoclip. 4 cc of endomark was injected 3 cm distal to the polyp for tattoo. * A 5 mm sessile polyp was noted just distal to the polyp noted above. Cold snare polypectomy was performed. The polyp was completely removed and retrieved. * Medium internal hemorrhoids without stigmata of recent bleeding. Excavated lesions: * Mild diverticulosis of whole colon L>R. Impression: 1. Abnormal esophageal mucosa (biopsy) 2. Gastritis (biopsy) 3. Normal duodenum (biopsy) 4. Large polyp in hepatic flexure with central depression that could not be lifted/removed (EMR with piecemeal polypectomy, endoclip, tattoo) 5. Another small polyp in hepatic flexure (please note both polyps ended up getting placed in the same jar) 6. Internal and external hemorrhoids 7. Diverticulosis Recommendations:?? * Follow-up path results * Referral to surgery requested * CT abd/pel with iv contrast to be done * Cont PPI * Based on path and clinical course will likely need repeat colonoscopy in 1 year.
[2024-09-27 14:05] VITALS: BP 143/79; PULSE 63; RESP 17; TEMP 36.6; O2SAT 98
[2024-09-27 14:20] VITALS: BP 133/82; PULSE 65; RESP 16; O2SAT 99
== END 2024-09-27 14:42 | disposition home or self-care (01) ==
PROVIDERS: Visit Provider Internal Medicine
PROC: (CPT 45385; principal; 2024-09-27 12:50)
DX: Z12.11 Encounter for screening for malignant neoplasm of colon (principal); D12.3 Benign neoplasm of transverse colon; K57.30 Diverticulosis of large intestine without perforation or abscess without bleeding; K64.4 Residual hemorrhoidal skin tags; K64.8 Other hemorrhoids; K21.9 Gastro-esophageal reflux disease without esophagitis; K29.50 Unspecified chronic gastritis without bleeding; K44.9 Diaphragmatic hernia without obstruction or gangrene; K76.0 Fatty (change of) liver, not elsewhere classified; I10 Essential (primary) hypertension; Z68.37 Body mass index [BMI] 37.0-37.9, adult; G40.909 Epilepsy, unspecified, not intractable, without status epilepticus; E22.2 Syndrome of inappropriate secretion of antidiuretic hormone; E66.01 Morbid (severe) obesity due to excess calories; E78.00 Pure hypercholesterolemia, unspecified; Z79.82 Long term (current) use of aspirin; Z79.899 Other long term (current) drug therapy; Z88.5 Allergy status to narcotic agent; Z87.891 Personal history of nicotine dependence
CPT/HCPCS: 45385; 45381; 43239; 88305; 88313; 88342; J0171; J2003; J2704

== ENCOUNTER → 2024-09-27 09:18 | Outpatient (BNV) | payer MEDICARE, BC, SELFPAY | PROVIDERS: Visit Provider Internal Medicine | DX: Z12.11 Encounter for screening for malignant neoplasm of colon (principal); D12.3 Benign neoplasm of transverse colon; K57.90 Diverticulosis of intestine, part unspecified, without perforation or abscess without bleeding; K64.8 Other hemorrhoids; K29.70 Gastritis, unspecified, without bleeding; K21.9 Gastro-esophageal reflux disease without esophagitis | CPT/HCPCS: 43239; 45381; 45385 ==

== ENCOUNTER 2024-10-10 08:08 | Outpatient (REF) | payer MEDICARE, BC, SELFPAY ==
--- OUTSIDE RECORDS SUMMARY | 2024-10-10 09:30 | XMS_ITS | Clinical Summary ---
Author Organization [facility] Address [address] [place] [address] Care Team Providers Care Friction Paint Machine Tender Name Role Phone Unavailable Primary Care Provider [...] Bone Density Screening 2019 Falls Prevention 2019 [id number] ( season) 2024 021, 12/04/2020 Imm-Influenza (#1) 2024 05/26/2020, 1 , 05/22/2018 Alcohol and Drug Screen 08/31/2024 Depression Annual Screen 08/31/2024 Imm-Zoster, Recombinant Completed 07/27/2020, 05/26 Insurance [facility]/LESLIE LOPEZ Member Subscriber Plan / Payer (Ef fective 2019-Present) Name:Va Fleix Relation to Subscriber:Self Name:Va Felix Payer ID:[id number] Group ID:[id number] Type:Indemnity Address: [facility] [address] [place] [address]
--- OUTSIDE RECORDS SUMMARY | 2024-10-10 09:30 | XMS_ITS | Clinical Summary ---
Author Organization [facility] ity Address [address] [place] [address] Care Team Providers Care Mortgage Loan Officer Originator Name Role Phone Unavailable Primary Care Provider Unavailabl e Social History Tobacco Use Types Packs/Day Years Used Date Smoking Tobacco: Never Assessed Comments Unknown Sex and Gender Information Value Date Recorded Sex Assigned at Not on file Legal Sex Female 10:10 PM EST Gender Identity Not on file Sexual Orientation Not on file Plan of Treatment Health Maintenance Due Date Last Done Comments Breast Cancer Screening 1955 DTaP,Tdap,and Td Vaccines (1 - Tdap) 1961 Pneumococcal Vaccine: 50+ Ye ars (1 of 1 - PCV) 2004 Zoster Vaccines (1 of 2) 2004 Colorectal Cancer Screening: Colonoscopy 08/02/2022 Depression Screening [...] patient's age to complete this topic Meningococcal B Vacine Aged Out No lo nger eligible based on patient's age to complete this topic RSV Immunization Patients Un roland 20 months Aged Out No longer eligible b ased on patient's age to complete this topic Varicella Vaccines Aged Out No longer eligible based on patient's age to complete this topic
== END 2024-10-10 08:09 | disposition home or self-care (01) ==
LOC: HO.LAB 08:08
PROVIDERS: PCP Hospitalist
DX: Z13.89 Encounter for screening for other disorder (principal)
CPT/HCPCS: 99202

== ENCOUNTER 2024-10-10 08:08 | Outpatient (AMB) | payer MEDICARE, BC, SELFPAY ==
--- NOTE | 2024-10-10 08:42 | MHC.OFFWIV ---
Intake Vital Signs 10/10/24 08:45 Weight 199 lb BP 126/80 Blood Pressure Location Lt brachial Position Sitting Pulse 77 Pulse Source Pulse Oximeter Temp 98.4 F Temp Source Oral Pulse Oximetry (%) 94 Oxygen Delivery Method Room Air Intake Visit Reasons: EP ? bronchial infection Intake Note: Patient here for cough that has been present since last . Patient Tobacco Use Status: Former Tobacco user Allergies oxycodone [From PERCOCET] Allergy (Mild, Verified 10/10/24 08:45) PARANOID, ANXIETY SHELLFISH Allergy (Unknown, Uncoded 10/10/24 08:45) PASS OUT Do you need a note to return to daycare/school/sports/work: No HPI HPI Comments History of Present Illness Details History - The patient is a 69-year-old female presenting with a persistent cough. - The cough began 4 days ago with associated back pain and ear fullness. - There was concern regarding possible COVID-19 exposure at work, though the home test was negative. - She reported subjective fevers but could not confirm them with a thermometer. - Ibuprofen provided minimal relief for the associated headache. Physical Exam General: Cooperative, healthy appearing, comfortable and no acute distress Orientation/consciousness: Patient oriented x3 Limitations: No limitations Head: Normal to inspection Ears: Hearing grossly normal bilaterally, external ears normal and TM's normal bilaterally Nose: Normal external nose present, Normal nares present and No nasal discharge present Face and sinus: Normal facial exam and Yes sinuses nontender Mouth: Normal oral and palatal mucosa present and moist mucous membranes Throat: Yes tonsils normal, Yes uvula midline. Posterior oropharynx erythema Eyes: Appearance normal, both eyes and all related structures Neck: Normal visual inspection Respiratory: no wheezing, vesicular sounds on right side. Normal respiratory effort, able to speak in complete sentences, Actively coughing, no respiratory distress, not tachypneic, no tripod positioning and no use of accessory muscles. Oxygen saturation noted to be low, fluctuating between 92-96%. Cardiovascular: Regular rate and rhythm. Normal S1 and S2 Skin: No rashes or lesions noted Neuro: Patient oriented x3 Extremities: Normal to inspection and Yes no clubbing, cyanosis or edema [facility] Medical History (Updated 10/10/24 @ 09:02 by Sommer Hatfield PA-C) Sebaceous cyst Depression GERD (gastroesophageal reflux disease) High cholesterol Hypertension SIADH (syndrome of inappropriate ADH production) Seizure disorder Morbid obesity Surgical History (Updated 09/27/24 @ 12:56 by Gay Menon RN) History of loop recorder S/P pilonidal cyst excision History of hysterectomy History of cholecystectomy H/O esophagogastroduodenoscopy H/O colonoscopy Family History Daughter Thyroid cancer Maternal Grandmother Colostomy in place Paternal Grandmother Diabetes Mother HTN (hypertension) Maternal Grandfather Heart disease Social History Are you a primary farm or ranch animal caretaker to a significant other at home: No Do you presently have visiting nurse or other home services: No Alcohol intake: current Alcohol intake frequency: holidays/special occasions only Patient Tobacco Use Status: Former Tobacco user Review of Systems Const All systems reviewed & are unremarkable except as noted in HPI and below Physical Exam Vital Signs: Last Vital Signs Temp 98.4 F 10/10/24 08:45 Pulse 77 10/10/24 08:45 BP 126/80 10/10/24 08:45 Pulse Ox 94 10/10/24 08:45 Oxygen Delivery Method Room Air 10/10/24 08:45 Assessment & Plan Assessment & Plan (1) Viral lower respiratory tract infection: Code(s): J22 - Unspecified acute lower respiratory infection; B97.89 - Other viral agents as the cause of diseases classified elsewhere Plan: Considering the patient's symptomatic presentation and potential risk for respiratory infection, a [id number] test for COVID-19, influenza, and RSV was conducted. Due to fluctuating oxygen levels (92-96%) and vesicular sounds on Right side on examination, a chest X-ray was advised to rule out pneumonia. Symptomatic treatments, including Lara D and Benadryl, were recommended for congestion, and Tessalon Perles for cough suppression. An inhaler, verified for insurance coverage, was prescribed for episodes of cough or breathlessness. If pneumonia is confirmed from the chest X-ray, antibiotic therapy will be initiated. Patient was informed and verbally consented to the use of an ambient scribe for clinic note documentation during this visit Orders: Orders XR chest 2V Today R05.9 - Cough, unspecified SARS-CoV2/FLU/RSV Today B97.89 - Other viral agents as the cause of diseases classified elsewhere, J22 - Unspecified acute lower respiratory infection Medications: New benzonatate 200 mg PO TID PRN 14 caps 0RF cough albuterol sulfate 90 mcg/actuation 2 puffs inhalation Q6H PRN 8.5 grams 0RF shortness of breath or wheezing or cough Coding Level of Care Code New Pt Level 4 (80393) Diagnoses Viral lower respiratory tract infection J22; B97.89
[2024-10-10 08:45] VITALS: BP 126/80; PULSE 77; TEMP 36.9; O2SAT 94
== END 2024-10-10 09:10 | disposition home or self-care (01) ==
PROVIDERS: PCP Hospitalist; Visit Provider Physician Assistant
DX: J22 Unspecified acute lower respiratory infection (principal); B97.89 Other viral agents as the cause of diseases classified elsewhere

== ENCOUNTER 2024-10-10 09:06 | Outpatient (REF) | payer MEDICARE, BC, SELFPAY ==
--- NOTE | ~2024-10-10 | XR_ITS ---
EXAMINATION: XR CHEST CLINICAL INFORMATION: R05.9 - Cough, unspecified COMPARISON: X-ray report dated July 18, 2013. TECHNIQUE: 2 views of the chest were obtained. FINDINGS: No consolidation, pleural effusion or pneumothorax. Pulmonary reticular pattern. Cardiomediastinal silhouette size is normal. Multilevel thoracic and upper lumbar spondylosis. Secretions in the right supraclavicular notch region. Degenerative changes in the acromioclavicular joints. XR/XR chest 2V IMPRESSION: No acute airspace disease. Electronically signed by: Parth Newsome MD 10/10/2024 09:24 AM EST
[2024-10-10 11:00] LABS: Influenza A PCR NEGATIVE (Negative); Influenza B PCR NEGATIVE (Negative); Resp Syncy Virus RNA Qual PCR NEGATIVE (Negative); SARS COV2 PCR INHOUSE NEGATIVE (Negative)
== END 2024-10-10 09:07 | disposition home or self-care (01) ==
LOC: HO.HMGCX 09:06
PROVIDERS: PCP Student in an Organized Health Care Education/Training Program; Visit Provider Physician Assistant
DX: R05.9 Cough, unspecified (principal); J22 Unspecified acute lower respiratory infection; B97.89 Other viral agents as the cause of diseases classified elsewhere
CPT/HCPCS: 0241U; 71046; 99202

== ENCOUNTER → 2024-10-10 09:11 | Outpatient (BNV) | payer MEDICARE, BC, SELFPAY | PROVIDERS: PCP Student in an Organized Health Care Education/Training Program; Visit Provider Radiology Diagnostic Radiology | DX: R05.9 Cough, unspecified (principal) | CPT/HCPCS: 71046 ==

== ENCOUNTER 2024-10-20 08:32 | Outpatient (AMB) | payer MEDICARE, BC, SELFPAY ==
--- NOTE | 2024-10-20 08:32 | MHC.OFFVIS ---
Vital Signs 10/20/24 08:33 Height 5 ft 3 in Weight 199 lb 0.004 oz BMI 35.2 Intake Visit Reasons: Colon polyps Intake Note: This patient was referred by for Colon polyps. Pt c/o; no complaints. Colonoscopy: 09/27/2024 Laundry Machine Operator Required: No Accompanied by: Spouse Allergies oxycodone [From PERCOCET] Allergy (Mild, Verified 10/20/24 08:38) PARANOID, ANXIETY SHELLFISH Allergy (Unknown, Uncoded 10/20/24 08:38) PASS OUT HPI HPI Colon polyps: Details: [age] year old female referred for a colon polyp. She had undergone a colonoscopy Dr. Ivey last 09/27/2024 and this showed a 2 cm polyp in the hepatic flexure which could not be endoscopically removed. According to the endoscopist, this appeared suspicious. Biopsies of this showed tubular adenoma with a high-grade dysplasia. She was referred to or for surgical resection. She denies any significant GI complaints. She denies any strong family history of colon cancer. [facility] Medical History Colon polyp Sebaceous cyst Depression GERD (gastroesophageal reflux disease) High cholesterol Hypertension SIADH (syndrome of inappropriate ADH production) Seizure disorder Morbid obesity Surgical History History of loop recorder S/P pilonidal cyst excision History of hysterectomy History of cholecystectomy H/O esophagogastroduodenoscopy H/O colonoscopy Family History Daughter Thyroid cancer Maternal Grandmother Colostomy in place Paternal Grandmother Diabetes Mother HTN (hypertension) Maternal Grandfather Heart disease Social History Are you a primary neonatal intensive care unit nurse to a significant other at home: No Do you presently have visiting nurse or other home services: No Alcohol intake: current Alcohol intake frequency: holidays/special occasions only Patient Tobacco Use Status: Former Tobacco user Review of Systems Const Denies chills and Denies fever(s) Card Denies chest pain, Denies dyspnea and Denies dyspnea on exertion Resp Denies cough, Denies dyspnea and Denies dyspnea on exertion GI Denies hematochezia and Denies change in bowel habits Denies hematuria Musc Denies back pain and Denies limited range of motion Neuro Denies focal weakness and Denies convulsions Psych Denies depression and Denies mood swings Physical Exam Vital Signs: BMI result Body Mass Index 35.2 Const General: comfortable and no acute distress Orientation/consciousness: patient oriented x3 Neck Neck: Yes no lymphadenopathy Resp Auscultation: clear to auscultation bilaterally Cardio Rhythm: regular rhythm GI Palpation (GI): Soft to palpation, nontender and no guarding Neuro General: patient oriented x3 Assessment & Plan Assessment & Plan (1) Colon polyp: Code(s): K63.5 - Polyp of colon Category: Medical Plan: She had a colonoscopy done by Dr. Ivey as showing a 2 cm colon polyp that could not be endoscopically removed. Biopsies had shown a tubular adenoma without dysplasia. The appearance was deemed to be suspicious for a high-grade lesion so she was referred to me for resection I explained to her that I would recommend repeating her colonoscopy so we can confirm location of the lesion. I reviewed with her the technique of colonoscopy. I discussed the risks including but not limited to bleeding, perforation, as well as the benefits and alternatives. She understands and agrees to proceed. Medications: New sodium,potassium,mag sulfates 17.5-3.13-1.6 gram (Suprep Bowel Prep Kit) DILUTE; drink full amount early evening before AND next morning at least 2 hr before procedure; follow w 960 mL water PO 354 mL 0RF Coding Level of Care Code New Pt Level 3 (07961) Diagnoses Colon polyp K63.5
[2024-10-20 08:33] VITALS: BMI 35.2
--- OUTSIDE RECORDS SUMMARY | 2024-10-20 08:55 | XMS_ITS | Clinical Summary ---
Author Organization [facility] Address [address] [place] [address] Care Team Providers Care Liquor Establishment Manager Name Role Phone Unavailable Primary Care Provider [...] Bone Density Screening 2019 Falls Prevention 2019 [id number]-13 ( season) 2024 021, 12/04/2020 Imm-Influenza (#1) 2024 05/26/2020, 1 , 05/22/2018 Alcohol and Drug Screen 08/31/2024 Depression Annual Screen 08/31/2024 Imm-Zoster, Recombinant Completed 07/27/2020, 05/26 Insurance [facility]/LESLIE LOPEZ Member Subscriber Plan / Payer (Ef fective 2019-Present) Name:Va Felix Relation to Subscriber:Self Name:Va Felix Payer ID:[id number] Group ID:[id number] Type:Indemnity Address: [facility] [address] [place] [address]
--- OUTSIDE RECORDS SUMMARY | 2024-10-20 08:55 | XMS_ITS | Clinical Summary ---
Author Organization [facility] ity Address [address] [place] [address] Care Team Providers Care Production Intern Name Role Phone Unavailable Primary Care Provider [...] DTaP,Tdap,and Td Vaccines (1 - Tdap) 1973 Pneumococcal Vaccine: 50+ Ye ars (1 of [...]
== END 2024-10-20 08:54 | disposition home or self-care (01) ==
PROVIDERS: PCP Student in an Organized Health Care Education/Training Program; Visit Provider Surgery
DX: K63.5 Polyp of colon (principal)
CPT/HCPCS: 99203

== ENCOUNTER → 2024-10-20 08:32 | Outpatient (BNVA) | payer MEDICARE, BC, SELFPAY | PROVIDERS: PCP Student in an Organized Health Care Education/Training Program; Visit Provider Surgery | DX: K63.5 Polyp of colon (principal) | CPT/HCPCS: 99202 ==

== ENCOUNTER 2024-10-24 12:57 | Outpatient (REF) | payer MEDICARE, BC, SELFPAY ==
[2024-10-24 14:19] LABS: Blood Urea Nitrogen 14 mg/dL (9-16); Estimated Glomerular Filt Rate > 60
--- OUTSIDE RECORDS SUMMARY | 2024-10-24 14:42 | XMS_ITS | Clinical Summary ---
Author Organization [facility] Address [address] [place] [address] Care Team Providers Care Marketing Reps Sports And Entertainment Name Role Phone Unavailable Primary Care Provider [...] Bone Density Screening 2019 Falls Prevention 2019 [id number]-[id number]-38 ( season) 2024 021, 12/04/2020 Imm-Influenza (#1) 2024 05/26/2020, 1 , 05/22/2018 Alcohol and Drug Screen 08/31/2024 Depression Annual Screen 08/31/2024 Imm-Zoster, Recombinant Completed 07/27/2020, 05/26 Insurance [facility]/LESLIE LOPEZ Member Subscriber Plan / Payer (Ef fective 2019-Present) Name:Va Felix Relation to Subscriber:Self Name:Va Felix Payer ID:[id number] Group ID:[id number] Type:Indemnity Address: [facility] [address] [place] [address]
--- OUTSIDE RECORDS SUMMARY | 2024-10-24 14:42 | XMS_ITS | Clinical Summary ---
Author Organization [facility] ity Address [address] [place] [address] Care Team Providers Care Composition Weatherboard Applier Name Role Phone Unavailable Primary Care Provider [...]
== END 2024-10-24 12:58 | disposition home or self-care (01) ==
LOC: HO.LAB 12:57
PROVIDERS: PCP Student in an Organized Health Care Education/Training Program; Visit Provider Surgery
DX: K63.5 Polyp of colon (principal)
CPT/HCPCS: 36415; 82565; 84520

== ENCOUNTER 2024-10-25 07:55 | Outpatient (REF) | payer MEDICARE, BC, SELFPAY ==
--- NOTE | ~2024-10-25 | CT_ITS ---
EXAMINATION: CT ABDOMEN PELVIS WITH IV CONTRAST HISTORY: K63.5 - Polyp of colon COMPARISON: There are no prior studies for comparison. TECHNIQUE: CT scan of the abdomen and pelvis was performed following administration of 85 mL Omnipaque 350 using standard departmental protocol. Coronal and sagittal reformatted images were generated and reviewed. The patient received oral contrast material. This CT exam was performed with one or more of the following dose reduction techniques: automated exposure control, adjustment of the mA and/or kV according to patient size, use of iterative reconstruction technique. DLP: 547 mGy-cm FINDINGS: LOWER CHEST: There is scarring at the medial right lung base. The visualized lung left lung base is clear. There is no pleural effusion. CARDIOVASCULATURE: The heart is normal in size. There is no pericardial effusion. LIVER: The liver is normal in size and contour. There is a probable 11 mm cyst in the caudate lobe. The hepatic and portal veins are patent. GALLBLADDER / BILE DUCTS: The gallbladder is surgically absent. There is no intra or extrahepatic biliary ductal dilatation. SPLEEN: The spleen is normal in size. No focal splenic lesion is identified. PANCREAS: The pancreas is unremarkable in appearance. ADRENAL GLANDS: Within normal limits. KIDNEYS/RETROPERITONEUM: No renal calculi are identified. There is no hydronephrosis. No renal masses are identified. LYMPH NODES: No abdominal or pelvic lymphadenopathy. VASCULATURE: The abdominal aorta is normal in caliber. MESENTERY/PERITONEUM: No free fluid. No masses. There is no free intraperitoneal gas. STOMACH: The stomach is unremarkable. SMALL BOWEL: The small bowel is normal in caliber. COLON: There is diverticulosis of the sigmoid colon, without evidence of diverticulitis. APPENDIX: The appendix is not seen, however no inflammatory changes are seen adjacent to the cecum. URINARY BLADDER/PELVIC ORGANS: The urinary bladder is unremarkable. The patient is status post hysterectomy. The ovaries are unremarkable. BONES / SOFT TISSUES: There is severe degenerative disc disease of the spine. CT/CT abdomen pelvis w IV con IMPRESSION: 1. Sigmoid diverticulosis without evidence of diverticulitis. 2. Probable 11 mm cyst in the caudate lobe of the liver. Electronically signed by: Berny Teran MD 10/25/2024 02:[address] [facility]
--- OUTSIDE RECORDS SUMMARY | 2024-10-25 07:58 | XMS_ITS | Clinical Summary ---
Author Organization [facility] ity Address [address] [place] [address] Care Team Providers Care Assembly Line Driver Name Role Phone Unavailable Primary Care Provider [...]
--- OUTSIDE RECORDS SUMMARY | 2024-10-25 07:58 | XMS_ITS | Continuity of Care Document ---
Author Organization [facility] Address [address] [place] [address]- Care Team Providers Care Print Cutter Name Role Phone Derek PAINTER, Tiara Primary Care Physician Encounter [facility] Date(s): 09/24/24 - 10/24/24 [facility] [address] [place] [address] Attending Physician: AdmtrFelicity Admitting Physician: AdmtrFelicity Referring [...] vaccine, inactivated 2 08/04/13 Gi bhupendra SARS-CoV-2(COVID-19)mRNA-LNP vac([id number]) 05/14/24 Recorded SARS-CoV-2(COVID-19)mRNA-LNP vac([id number]) 05/24/23 Recorded RSV vaccine preF3, recombinant 08/26/23 [...] Comment: zoster lot [id number] exp 04-26-2022 [facility] 4Result Comment: [facility]# [id number] Medications (Vitamin D3) Cholecalciferol 400 LONGTERM units/mL oral syringe 1 mL = 10 [...] 2 times a day, # 180 tablet, 3 Refills, Maintenance, 10/17/24 9:48:00 AM EST, [id number], 160, cm, 10/17/24 9:18:00 EST, Height, 93.3, kg, 11/01/24 8:49:00 EDT, Dry Weight Start Date: 10/17/24 Stop Date: 10/12/25 Status: Ordered Quantity: 180.0 Unit: tablet Repeat number: 4 cholecalciferol 4000 intl units oral tablet 1 tablet = 4,000 International_Units, By Mouth, Daily, Maintenance, 09/29/19 10:33:00 PM EST, Tablet Start Date: 09/29/19 Status: Ordered Repeat number: 1 escitalopram 5 mg oral tablet 1 tablet = 5 mg, By Mouth, Daily, # 30 tablet, 0 Refills, Maintenance, 10/17/24 9:35:00 AM EST, Tablet, [id number], Partial fill upon patient request if the prescription is for a schedule II opioid drug., 160, cm, 10/17/24 9:18:00 EST, Height, 93.3, kg, 07/01/24 8:49:00 EDT, Dry Weight Start Date: 10/17/24 Status: Ordered Quantity: 30.0 Unit: tablet Repeat number: 1 Indication: Major depressive disorder, single episode, mild [...] Quantity: 1.0 Unit: each Repeat number: 1 hydrochlorothiazide-losartan 12.5 mg-50 mg oral tablet 1 tablet, By Mouth, Daily, # 30 tablet, 3 Refills, Maintenance, 10/17/24 9:47:00 AM EST, Tablet, [id number], Partial fill upon patient request if the prescription is for a schedule II opioid drug., 1 tablet By Mouth Daily, 160, cm, 10/17/24 9:18:00 EST, Height, 93.3, kg, 07/01/24 8:49:00 EDT, Dry Weight Start Date: 10/17/24 Status: Ordered Quantity: 30.0 Unit: tablet Repeat number: 4 Indication: Essential [...] Maintenance, 03/08/24 1:54:00 PM EDT, [id number], 160, cm, 11/16/23 12:43:00 EDT, Height, 91, [...] Team Personnel Name: Sekou Gonzalez MD Position: [facility] Renal MD Member Role: Lifetime Consulting Physician Address: [address] [place] [address] [id number] [facility] [address]- [place] Telecom: Name: Luz Elena Higgins RN Position: [facility] RN Member Role: Primary Care Nurse Name: Umberto PARKER, Carlos Position: [facility] Outreach Member Role: Primary Care Nurse Name: Tiara Reed MD Position: [facility] Physician - Primary Care Member Role: PCP Address: [address] [place] [phone]- Telecom: Care Team Related Persons Name: MARCO ANTONIO CAM Name: AGUSTIN JOHNSON Insurance Providers Guarantor name: LYNNE JOHNSON Health Plan Information #: 1 Payer: MEDICARE PART B OUTPT Member Number: NA Policy Number: NA Group Number: NA Health Plan Information #: 2 Payer: BLUE MEDICARE SUPPL Member Number: NA Policy Number: NA Group Number: NA
--- OUTSIDE RECORDS SUMMARY | 2024-10-25 07:58 | XMS_ITS | Clinical Summary ---
Author Organization [facility] Address [address] [place] [address] Care Team Providers Care Bevel Face Stoner And Polisher Name Role Phone Unavailable Primary Care Provider [...] Bone Density Screening 2019 Falls Prevention 2019 [id number] ( season) 2024 021, 12/04/2020 Imm-Influenza (#1) 2024 05/26/2020, 1 , 05/22/2018 Alcohol and Drug Screen 08/31/2024 Depression Annual Screen 08/31/2024 Imm-Zoster, Recombinant Completed 07/27/2020, 05/26 Insurance [facility]/LESLIE LOPEZ Member Subscriber Plan / Payer (Ef fective 2019-Present) Name:Va Felix Relation to Subscriber:Self Name:Va Felix Payer ID:[id number] Group ID:[id number] Type:Indemnity Address: [facility] [address] [place] [address]
--- OUTSIDE RECORDS SUMMARY | 2024-10-25 07:58 | XMS_ITS | Continuity of Care Document ---
Author Organization [facility] Mahendra Pedro lt Address [address] [place] [address]- Care Team Providers Care Rib Puller Name Role Phone Tiara Reed MD Primary Care Physician Encounter [facility] Date(s): 10/17/24 - 10/24/24 [facility] [address] [place] [address]- Encounter Diagnosis Hypertension(Discharge Diagnosis) - 10/17/24 Anxiety(Discharge Diagnosis) - 10/17/24 Mild major depression(Discharge Diagnosis) - 10/17/24 URTI (acute upper respiratory infection)(Discharge Diagnosis) - 10/17/24 Attending Physician: Tiara Reed MD Encounter Type: [...] vaccine, inactivated 2 08/04/13 [facility] bhupendra SARS-CoV-2(COVID-19)mRNA-LNP vac([id number]) 05/14/24 Recorded SARS-CoV-2(COVID-19)mRNA-LNP vac([id number]) 05/24/23 Recorded RSV vaccine preF3, recombinant 08/26/23 [...] [id number] exp 04-26-2022 [facility] Comment: [facility]# [id number] Medications (Vitamin D3) Cholecalciferol 400 SHELTER units/mL oral syringe 1 mL = 10 [...] Refills, Maintenance, 10/17/24 9:35:00 AM EST, Tablet, [id number], Partial fill [...] Refills, Maintenance, 10/17/24 9:47:00 AM EST, Tablet, [id number], Partial fill [...] Maintenance, 03/08/24 1:54:00 PM EDT, [id number], 160, cm, 11/16/23 12:43:00 EDT, Height, 91, kg, 09/30/23 7:53:00 EST, Dry Weight Start Date: 03/08/24 Status: Ordered Quantity: 90.0 Unit: capsule Repeat number: 1 rosuvastatin 20 mg oral tablet 1 tablet = 20 mg, By Mouth, Daily, # 90 tablet, 3 Refills, Maintenance, 08/12/24 9:26:00 AM EST, Tablet, [facility] #[id number], Partial fill upon patient request if [...] Effective Dates Health Status Clinical Service Informant Hypertension Discharge Diagnosis 10/17/24 Anxiety Discharge Diagnosis 10/17/24 Mild major depression Discharge Diagnosis 10/17/24 Non-Specified URTI (acute upper respiratory infection) Discharge Diagnosis 10/17/24 Vital Signs Most recent to oldest [Reference Range]: 1 Height 160 cm (10/17/24 9:18 AM) Weight 91.6 kg (10/17/24 9:18 AM) Oxygen Saturation [94-100 %] 97 % (10/17/24 9:18 AM) Pulse Rate [55-90 bpm] 74 bpm (10/17/24 9:18 AM) Body Mass Index [18.5-24.99 kg/m2] 35.78 kg/m2 *>HHI* (10/17/24 9:18 AM) Blood Pressure [90-138/55-84 mm Hg] 137/ 83mm Hg (10/17/24 9:18 AM) Blood pressure sites Arm, right (10/17/24 9:18 AM) Weight Obtained Via Standing scale (10/17/24 9:18 AM) Social History Social History Type Response Smoking Status Former smoker; Other : Quit 1981; entered on: 01/29/18 Sex Sex Representation Female (finding) Note * Jazlyn Palma: PERFORM Event Display: Patient Education/Instruction Authored Date: [id number] Ambulatory Adult Visit Summary [facility] Adult [address] [address] Name: LYNNE JOHNSON : 1955?? Visit: 10/17/2024 09:01?? Ambulatory Visit Instructions ?? Your Care Team Primary Care Provider Tiara Reed MD? This Visit Provider Tiara Reed MD Your Diagnosis Hypertension Anxiety Mild major depression URTI (acute upper respiratory infection) Vitals Signs Pulse Rate: 74 bpm Height: 160 cm Systolic Blood Pressure: 137 mm Hg Weight: 91.6 kg Diastolic Blood Pressure: 83 mm Hg Body Mass Index:??35.78 kg/m2??Critical Oxygen Saturation: 97 % Body surface area: 2.02 What to do next Scheduled Follow-Up Appointments Thursday 7:40 AM EST ?? Where: [facility] [address] [place] [address]- Status: Pending Thursday 9:30 AM EDT ?? With: iTara Reed MD Where: [facility] [address] [place] [address]- Status: Pending Follow-Up Appointments Follow Up with??Tiara Reed MD When:??Within 1 month Why: HTN f/u?? Where: [address] [facility] Adult [facility] [place] [address]- Future Orders Lipid Panel - Routine, Once, 11/16/23 12:55:00 EDT, Future Order, [facility], Blood?? Lipid Panel - Routine, Once, 04/04/24 14:37:00 EDT, Future Order, [facility], Blood?? Comprehensive Metabolic Panel - Routine, Once, 10/17/24 9:52:00 EST, Future Order, [facility], Blood?? Medications The list [...] What How Much When Why Instructions New BusPIRone (busPIRone 7.5 mg oral tablet) 1 tab(s) Oral Twice a day Duration: 90 Days Refills: 3 Pickup at [facility]/pharmacy #[id number] New Escitalopram (escitalopram 5 mg oral tablet) 1 tab(s) Oral Daily Mild major depression Pickup at [facility]/pharmacy #[id number] New Hydrochlorothiazide-Losartan (hydrochlorothiazide-losartan 12.5 mg-50 mg oral tablet) 1 tab(s) Oral Daily Hypertension Refills: 3 Pickup at [facility]/pharmacy #[id number] Unchanged Aspirin (aspirin 81 mg oral tablet) 1 tab(s) Oral Daily Unchanged Cholecalciferol ((Vitamin D3) Cholecalciferol 400 SHELTER units/ mL oral syringe 1 mL) 10 [...] enteric coated capsule) 1 capsule Oral Daily Unchanged Rosuvastatin (rosuvastatin 20 mg oral tablet) 1 tab(s) Oral Daily Duration: 90 Days Pharmacy Information [facility]/pharmacy #[id number]: [address] [place], [place] [id number] [phone] Test Performed Below is a partial list of the tests performed during your Visit. You may have had other tests and procedures not included in this list. Please discuss all test results with your provider. Comprehensive Metabolic Panel?-- Results Pending -- Medications and Immunizations Administered Medications Given During [...] are strongly encouraged to quit. Please call [employer] [facility] at [phone] or [phone] ([phone]) or log in to [email or web address] for referrals to smoking cessation programs. ?? The National Suicide Prevention Hotline is available 23/03 if you or someone you know needs to find a reason to keep living. By calling 4-841-061-dsyg (8847) you'll be connected to a skilled, trained counselor at a crisis center in your area. [facility] Digital Portal You can view and manage your care through the patient portal or by using a health care dax of your choosing. [employer] is a website that allows you to securely view your medical information including your hospital discharge summary, office visit summaries, medications and follow-up visits. You can also request appointments, renew medications, and request access to your medical information using a health care dax of your choosing, or just ask a question. You can enroll at [email or web address] or register during your next office visit. [facility], in keeping with [facility] guidance, no longer requires face masks for [...] primary care provider, you may find a [facility] provider by calling [facility] at [phone]. Patient Care team information Care Team Personnel Name: Sekou Gonzalez MD Position: [facility] Member Role: Lifetime Consulting Physician Address: [address] [place] [address] [id number] [facility] [place] [address]- Telecom: Name: Luz Elena Higgins RN Position: [facility] RN Member Role: Primary Care Nurse Name: Carlos Shipman RN Position: [facility] Outreach Member Role: Primary Care Nurse Name: Tiara Reed MD Position: [facility] Physician - Primary Care Member Role: PCP Address: [address] [place] [id number] Telecom: Care Team Related Persons Name: MARCO ANTONIO CAM Name: AGUSTIN JOHNSON Insurance Providers Guarantor name: LYNNE JOHNSON Health Plan Information #: 2 Payer: [employer]UE MED[employer] SUPPL Member Number: [id number] Policy Number: NA Group Number: [id number] Health Plan Information #: 1 Payer: MEDICARE PART B OUTPT Member Number: [id number] Policy Number: NA Group Number: [id number]
[2024-10-25] MEDS: Barium Sulfate Oral (Vanilla) 450 ML ORAL.SUSP 900 ML PO (10:30)
[2024-10-25] MEDS: iohexoL 350 MG/ML 75 ML INFUS..BTL 85 ML IV (10:30)
[2024-10-26 06:16] LABS: Creatinine POC 0.7 mg/dL (0.5-1.4); GFR POC > 60
== END 2024-10-25 07:56 | disposition home or self-care (01) ==
LOC: HO.CT 07:55
PROVIDERS: PCP Student in an Organized Health Care Education/Training Program; Visit Provider Internal Medicine
DX: K63.5 Polyp of colon (principal)
CPT/HCPCS: 74177; 82565; Q9967

== ENCOUNTER → 2024-10-25 07:56 | Outpatient (BNV) | payer MEDICARE, BC, SELFPAY | PROVIDERS: PCP Student in an Organized Health Care Education/Training Program; Visit Provider Radiology Diagnostic Radiology | DX: K57.30 Diverticulosis of large intestine without perforation or abscess without bleeding (principal); Q44.6 Cystic disease of liver | CPT/HCPCS: 74177 ==

== ENCOUNTER 2024-11-04 07:17 | Day surgery (SDC) | payer MEDICARE, BC, SELFPAY ==
--- OUTSIDE RECORDS SUMMARY | 2024-10-20 14:31 | XMS_ITS | Clinical Summary ---
Author Organization [facility] Address [address] [place] [address] Care Team Providers Care Demand Equipment Repairer Name Role Phone Unavailable Primary Care Provider [...] Bone Density Screening 2019 Falls Prevention 2019 [id number]-48 ( season) 2024 021, 12/04/2020 Imm-Influenza (#1) 2024 05/26/2020, 1 , 05/22/2018 Alcohol and Drug Screen 08/31/2024 Depression Annual Screen 08/31/2024 Imm-Zoster, Recombinant Completed 07/27/2020, 05/26 Insurance [facility]/LESLIE LOPEZ Member Subscriber Plan / Payer (Ef fective 2019-Present) Name:Va Felix Relation to Subscriber:Self Name:Va Felix Payer ID:[id number] Group ID:[id number] Type:Indemnity Address: [facility] [address] [place] [address]
--- OUTSIDE RECORDS SUMMARY | 2024-10-20 14:31 | XMS_ITS | Clinical Summary ---
Author Organization [facility] ity Address [address] [place] [address] Care Team Providers Care Transfer Controller Name Role Phone Unavailable Primary Care Provider [...]
[2024-11-02 12:29] VITALS: BMI 35.2
--- NOTE | 2024-11-03 09:47 | HO.ANESPROP2 ---
Documented by User: Chantel Armendariz NP 11/03/24 09:49 HPI - Anesthesia Eval Consult details Narrative: 69yo F for Colonoscopy, possible polypectomy PMFSH Active Problems Active Problems: All Active Problems Viral lower respiratory tract infection (Acute) Personal history of colonic polyps (Acute) Epigastric pain (Acute) Pre-op examination (Acute) Osteopenia (Acute) Fatty liver disease, nonalcoholic (Acute) Cataracts, bilateral (Acute) Constipation (Acute) Colon polyp (Acute) GERD (gastroesophageal reflux disease) (Acute) Past Medical History Medical History Colon polyp Sebaceous cyst Depression GERD (gastroesophageal reflux disease) High cholesterol Hypertension SIADH (syndrome of inappropriate ADH production) Seizure disorder Morbid obesity Family History Family History Daughter Thyroid cancer Maternal Grandmother Colostomy in place Paternal Grandmother Diabetes Mother HTN (hypertension) Maternal Grandfather Heart disease Family history of problems with anesthesia: No Surgical History Surgical History History of loop recorder S/P pilonidal cyst excision History of hysterectomy History of cholecystectomy H/O esophagogastroduodenoscopy (09/27/24) H/O colonoscopy (09/27/24) History of Problems with Anesthesia: No Social History Social History Are you a primary animal care specialist to a significant other at home: No Do you presently have visiting nurse or other home services: No Alcohol intake: current Alcohol intake frequency: holidays/special occasions only Patient Tobacco Use Status: Former Tobacco user Have you been hit, kicked, punched, or otherwise hurt by someone within the past year? If so, by whom?: No Are you DNR?: No Advance Directives: No Advance Directives Information Provided: Yes Recently lost weight without trying: No Nutrition Risks: No Nutritional Risk Meds Allergies Allergy/AdvReac Type Severity Reaction Status Date / Time oxycodone [From PERCOCET] Allergy Mild PARANOID, Verified 11/04/24 07:57 ANXIETY SHELLFISH Allergy Unknown PASS OUT Uncoded 11/04/24 07:57 Home Medications ?Medication ?Instructions ?Recorded ?Confirmed ?Last Taken ?Type amlodipine 5 mg tablet 5 mg PO DAILY 06/07/24 11/04/24 09/27/24 History aspirin 81 mg capsule 81 mg PO DAILY 06/07/24 11/04/24 09/24/24 History cholecalciferol (vitamin D3) 25 25 mcg PO DAILY 06/07/24 11/04/24 Unknown History mcg (1,000 unit) capsule escitalopram oxalate 10 mg tablet 10 mg PO DAILY 06/07/24 11/04/24 Unknown History lisinopril 20 mg tablet 20 mg PO DAILY 06/07/24 11/04/24 Unknown History omeprazole 40 mg capsule,delayed 40 mg PO DAILY 06/07/24 11/04/24 Unknown History release rosuvastatin 20 mg tablet 20 mg PO DAILY 06/07/24 11/04/24 Unknown History amlodipine 10 mg-benazepril 40 mg cap PO DAILY 10/20/24 Unknown History capsule escitalopram oxalate 5 mg tablet mg PO DAILY 10/20/24 Unknown History Exam Height,Weight and Vital Signs: Height 5 ft 3 in Weight 90.265 kg Assessment and Plan Assessment Anesthesia Assessment: Chart Reviewed Final Anesthetic Review Family History of Problems with Anesthesia: No History of Problems with Anesthesia: No Documented by User: Nisha Ferris MD 11/04/24 08:38 [facility] Past Medical History Medical History Colon polyp Sebaceous cyst Depression GERD (gastroesophageal reflux disease) High cholesterol Hypertension SIADH (syndrome of inappropriate ADH production) Seizure disorder Morbid obesity Family History Family History Daughter Thyroid cancer Maternal Grandmother Colostomy in place Paternal Grandmother Diabetes Mother HTN (hypertension) Maternal Grandfather Heart disease Surgical History Surgical History History of loop recorder S/P pilonidal cyst excision History of hysterectomy History of cholecystectomy H/O esophagogastroduodenoscopy (09/27/24) H/O colonoscopy (09/27/24) Social History Social History Are you a primary animal care specialist to a significant other at home: No Do you presently have visiting nurse or other home services: No Alcohol intake: current Alcohol intake frequency: holidays/special occasions only Patient Tobacco Use Status: Former Tobacco user Have you been hit, kicked, punched, or otherwise hurt by someone within the past year? If so, by whom?: No Are you DNR?: No Advance Directives: No Advance Directives Information Provided: Yes Recently lost weight without trying: No Nutrition Risks: No Nutritional Risk Meds Allergies Allergy/AdvReac Type Severity Reaction Status Date / Time oxycodone [From PERCOCET] Allergy Mild PARANOID, Verified 11/04/24 07:57 ANXIETY SHELLFISH Allergy Unknown PASS OUT Uncoded 11/04/24 07:57 Home Medications ?Medication ?Instructions ?Recorded ?Confirmed ?Last Taken ?Type amlodipine 5 mg tablet 5 mg PO DAILY 06/07/24 11/04/24 09/27/24 History aspirin 81 mg capsule 81 mg PO DAILY 06/07/24 11/04/24 09/24/24 History cholecalciferol (vitamin D3) 25 25 mcg PO DAILY 06/07/24 11/04/24 Unknown History mcg (1,000 unit) capsule escitalopram oxalate 10 mg tablet 10 mg PO DAILY 06/07/24 11/04/24 Unknown History lisinopril 20 mg tablet 20 mg PO DAILY 06/07/24 11/04/24 Unknown History omeprazole 40 mg capsule,delayed 40 mg PO DAILY 06/07/24 11/04/24 Unknown History release rosuvastatin 20 mg tablet 20 mg PO DAILY 06/07/24 11/04/24 Unknown History amlodipine 10 mg-benazepril 40 mg cap PO DAILY 10/20/24 Unknown History capsule escitalopram oxalate 5 mg tablet mg PO DAILY 10/20/24 Unknown History Exam Airway Mallampati Class: II TM Dist: >3cm Neck ROM: Full Heart: rrr Lungs: cta Assessment and Plan Assessment Anesthesia Assessment: Anesthesia Plan Discussed Final Anesthetic Review NPO: Yes ASA Class: III Final Preanesthetic Review: No Changes in Pt Med Stat, Meds/Allgs Chart Reviewed, Consent Obtained/Reviewed and Anes Risks/Benef Reviewed Patient Risk: Intermediate Procedure Risk: Low Anesthetic Plan Anesthetic Plan: MAC: Disposition: Standard PACU
[2024-11-04] MEDS: Lactated Ringers 1,000 ML 100 ML IVCONT (07:46)
[2024-11-04 07:55] VITALS: BP 140/71; PULSE 77; RESP 18; TEMP 36.8; O2SAT 95
[2024-11-04 07:56] VITALS: BMI 34.4
--- NOTE | 2024-11-04 08:01 | MHC.SHP ---
Pre-Procedural Eval Section A - 24 Hr Update-Section A only Date of Service: 11/04/24 The patient is an INPATIENT: No Changes since office visit: No Cold of Flu in the past 2 weeks, No New Medical Problems, No Changes in Medication and No Patient answered all questions The patient has been examined within 24 hours of the surgical procedure. The History & Physical has been completed within 30 days and I have reviewed it.: Yes Section B - Complete if H&P > 30 days Chief Complaint: Polyp of colon Allergies: Allergies Allergy/AdvReac Type Severity Reaction Status Date / Time oxycodone [From PERCOCET] Allergy Mild PARANOID, Verified 11/04/24 07:57 ANXIETY SHELLFISH Allergy Unknown PASS OUT Uncoded 11/04/24 07:57 Plan I have reviewed the history and physical and performed a pertinent physical examination on my patient. No changes have occurred unless specified. Time Spent With Patient Time: Total time managing care of this patient today ____ minutes.
--- NOTE | 2024-11-04 08:43 | W.PM.OPN ---
Operative Note Operative Note Date of Service: 11/04/24 Narrative: Preop diagnosis: Flat polyp at the hepatic flexure Postop diagnosis: The same Procedure: Colonoscopy with biopsies of the flat polyp at the hepatic flexure using cold forceps Surgeon: Edmund Thomason MD The patient is a 69-year-old female who had undergone a colonoscopy with Dr. Ivey was noted to have a flat polyp in the hepatic flexure which could not be endoscopically resected. Biopsies of this showed a tubular adenoma with out dysplasia. I scheduled the patient for a colonoscopy to confirm location and plan for resection of involved segment. She understood the technique of the planned procedure as well as the risks, benefits, and alternatives The patient was brought to the operating room and placed in left lateral decubitus position under monitored anesthesia care. A surgical time-out was done. A full digital rectal exam was done and this did not reveal any significant anal lesions. The tip of the Olympus colonoscope was gently introduced through the anal orifice advanced with insufflation all the way to the cecum. The cecum was intubated. The cecum was identified by visualization of the ileocecal valve as well as the appendiceal orifice. The cecal mucosa was unremarkable. The scope was gradually withdrawn with careful examination of the entire colonic mucosa being done with scope withdrawal. At the hepatic flexure, there was note of a tattooed area. Adjacent to this was a flat, indurated lesion, probably about almost 2 cm in diameter, with central puckering. Multiple biopsies of this were done using cold biopsy forceps. The patient had adequate bowel prep so it was unlikely that any other esion may have been missed. The rectum was reached and there were no lesions seen. The anal canal was unremarkable. The scope was then withdrawn completely with desufflation The patient tolerated the procedure well. There were no immediate complications. I will see her in the office to discuss right colon resection in view of this flat polyp which was deemed to be unresectable endoscopically. We will follow up with the path report as well.
[2024-11-04 08:45] VITALS: BP 112/57; PULSE 62; RESP 16; TEMP 36.2; O2SAT 96
[2024-11-04 09:00] VITALS: BP 122/66; PULSE 61; RESP 16; O2SAT 94
[2024-11-04 09:15] VITALS: BP 129/71; PULSE 75; RESP 16; O2SAT 97
== END 2024-11-04 09:38 | disposition home or self-care (01) ==
PROVIDERS: PCP Student in an Organized Health Care Education/Training Program; Visit Provider Surgery
PROC: 0DJD8ZZ Inspection of Lower Intestinal Tract, Via Natural or Artificial Opening Endoscopic (ICD-10-PCS; CPT 45378; principal; 2024-11-04 09:40)
DX: Z12.11 Encounter for screening for malignant neoplasm of colon (principal); D12.3 Benign neoplasm of transverse colon; K21.9 Gastro-esophageal reflux disease without esophagitis; I10 Essential (primary) hypertension; E78.00 Pure hypercholesterolemia, unspecified; E22.2 Syndrome of inappropriate secretion of antidiuretic hormone; G40.909 Epilepsy, unspecified, not intractable, without status epilepticus; F32.A Depression, unspecified; E66.01 Morbid (severe) obesity due to excess calories; Z68.35 Body mass index [BMI] 35.0-35.9, adult; Z88.5 Allergy status to narcotic agent; Z90.49 Acquired absence of other specified parts of digestive tract; Z98.890 Other specified postprocedural states; Z87.891 Personal history of nicotine dependence
CPT/HCPCS: 45380; 88305; J2003; J2704

== ENCOUNTER → 2024-11-04 07:17 | Outpatient (BNV) | payer MEDICARE, BC, SELFPAY | PROVIDERS: PCP Student in an Organized Health Care Education/Training Program; Visit Provider Surgery | DX: K63.5 Polyp of colon (principal) | CPT/HCPCS: 45380 ==

== ENCOUNTER 2024-11-17 10:43 | Outpatient (AMB) | payer MEDICARE, BC, SELFPAY ==
--- NOTE | 2024-11-17 10:45 | A.OFFVIS_ITS ---
Vital Signs 11/17/24 10:50 Height 5 ft 3 in Weight 194 lb 3.636 oz BMI 34.4 Intake Visit Reasons: S/P colonoscopy Intake Note: This patient presents for follow-up status Colonoscopy with biopsies of the flat polyp at the hepatic flexure using cold forceps. Pt c/o; reports no complaints. Healthcare Prof Required: No Accompanied by: Spouse Allergies oxycodone [From PERCOCET] Allergy (Mild, Verified 11/17/24 10:46) PARANOID, ANXIETY SHELLFISH Allergy (Unknown, Uncoded 11/17/24 10:46) PASS OUT Medication List - Last Reconciled 11/17/24 by Edmund Thomason MD albuterol sulfate 90 mcg/actuation 2 puffs inhalation Q6H PRN amlodipine 5 mg PO DAILY amlodipine-benazepril 10-40 mg caps PO DAILY aspirin 81 mg PO DAILY benzonatate 200 mg PO TID PRN cholecalciferol (vitamin D3) 25 mcg PO DAILY doxycycline hyclate 100 mg PO BID escitalopram oxalate mg PO DAILY escitalopram oxalate 10 mg PO DAILY lisinopril 20 mg PO DAILY omeprazole 40 mg PO DAILY rosuvastatin 20 mg PO DAILY HPI HPI S/P colonoscopy: Details: 69-year-old female here for follow-up for her flat polyp in the hepatic flexure. She had undergone a colonoscopy with Dr. Ivey recently was noted to have a flat polyp in the hepatic flexure which was not endoscopically resectable. I had repeated the colonoscopy last 11/04/2024 to confirm location. There was note of a flat polyp in the hepatic flexure, with induration and central puckering. This was about 2 cm in diameter. This was not endoscopically removable. The tattoo markings were visualized. I had biopsied this as well and this showed a tubulovillous adenoma with serrated features. She otherwise denies significant GI complaints. She feels well overall. [facility] Medical History (Updated 11/17/24 @ 11:06 by Edmund Thomason MD) Flat adenoma Colon polyp Sebaceous cyst Depression GERD (gastroesophageal reflux disease) High cholesterol Hypertension SIADH (syndrome of inappropriate ADH production) Seizure disorder Morbid obesity Surgical History History of colonoscopy (~11/04/24) History of loop recorder S/P pilonidal cyst excision History of hysterectomy History of cholecystectomy H/O esophagogastroduodenoscopy (09/27/24) H/O colonoscopy (09/27/24) Family History Daughter Thyroid cancer Maternal Grandmother Colostomy in place Paternal Grandmother Diabetes Mother HTN (hypertension) Maternal Grandfather Heart disease Social History Are you a primary healthcare business analyst to a significant other at home: No Do you presently have visiting nurse or other home services: No Alcohol intake: current Alcohol intake frequency: holidays/special occasions only Patient Tobacco Use Status: Former Tobacco user Review of Systems Const Denies chills and Denies fever(s) Card Denies chest pain, Denies dyspnea and Denies dyspnea on exertion Resp Denies cough, Denies dyspnea and Denies dyspnea on exertion GI Denies hematochezia and Denies change in bowel habits Denies hematuria Musc Denies back pain and Denies limited range of motion Neuro Denies focal weakness and Denies convulsions Psych Denies depression and Denies mood swings Physical Exam Vital Signs: BMI result Body Mass Index 34.4 Const General: comfortable and no acute distress Orientation/consciousness: patient oriented x3 Neck Neck: Yes no lymphadenopathy Resp Auscultation: clear to auscultation bilaterally Cardio Rhythm: regular rhythm GI Palpation (GI): Soft to palpation, nontender and no guarding Neuro General: patient oriented x3 Assessment & Plan Assessment & Plan (1) Flat adenoma: Code(s): D36.9 - Benign neoplasm, unspecified site Category: Medical Plan: I had repeated the colonoscopy and this does show the flat adenoma in the hepatic flexure with central puckering. Biopsy showed a tubulovillous adenoma with serrated features Since this polyp is not endoscopically resectable, and is precancerous, I offered her the option of proceeding with surgical resection. I explained the technique of hand assisted laparoscopic right colon resection and possible open resection. I reviewed the risks including but not limited to bleeding, infections, bowel injury, staple line leak, injury to other organs including the urinary tract, inherent risks of anesthesia, obstruction, as well as the benefits and alternatives She understands and wants to proceed. She has a history of and hysterectomy so some intra-abdominal adhesions are anticipated. Coding Level of Care Code Est Pt Level 3 (53192) Diagnoses Flat adenoma D36.9
[2024-11-17 10:50] VITALS: BMI 34.4
== END 2024-11-17 11:03 | disposition home or self-care (01) ==
LOC: HO.HGS 10:44
PROVIDERS: PCP Student in an Organized Health Care Education/Training Program; Visit Provider Surgery
DX: D36.9 Benign neoplasm, unspecified site (principal)
CPT/HCPCS: 99213

== ENCOUNTER → 2024-11-17 10:43 | Outpatient (BNVA) | payer MEDICARE, BC, SELFPAY | PROVIDERS: PCP Student in an Organized Health Care Education/Training Program; Visit Provider Surgery | DX: D12.3 Benign neoplasm of transverse colon (principal) | CPT/HCPCS: 99212 ==

== ENCOUNTER → 2025-01-10 14:22 | Outpatient (BNV) | payer MEDICARE, BC, SELFPAY | PROVIDERS: Admitting Provider Surgery; PCP Student in an Organized Health Care Education/Training Program; Visit Provider Internal Medicine Cardiovascular Disease | DX: R00.1 Bradycardia, unspecified (principal) | CPT/HCPCS: 93010 ==

== ENCOUNTER 2025-01-24 09:42 | Inpatient (IN) | payer MEDICARE, BC, SELFPAY ==
--- NOTE | 2025-01-10 | ECG_ITS ---
Test Reason : PRE OP Blood Pressure : */* mmHG Vent. Rate : 59 BPM Atrial Rate : 59 BPM P-R Int : 192 ms QRS Dur : 82 ms QT Int : 434 ms P-R-T Axes : 49 24 75 degrees QTcB Int : 429 ms Sinus bradycardia Otherwise normal ECG When compared with ECG of 12-Jan-2016 11:26, No significant change was found Referred By: Chantel Armendariz Electronically Signed By: ELEAZAR RAINES MD
[2025-01-10 13:02] VITALS: BP 148/74; PULSE 60; RESP 20; O2SAT 97; BMI 36.1
[2025-01-10 14:24] LABS: Hematocrit 41.4 % (37.0-47.0); Hemoglobin 13.7 g/dl (12.0-16.0); Mean Corpuscular HGB Conc 33.1 g/dl (31.0-35.0); Mean Corpuscular Hemoglobin 28.7 pg (27.0-33.0); Mean Corpuscular Volume 86.8 fL (80.0-98.0); Mean Platelet Volume 9.3 fL (9.4-12.3); Platelet Count 225 X10*3/uL (160-400); Red Blood Count 4.77 X10*6/uL (4.20-5.50); Red Cell Distribution Width 13.5 % (11.0-16.0); White Blood Count 6.2 X10*3/uL (4.8-10.8)
[2025-01-10 14:55] LABS: Anion Gap 15 (12-20); Blood Urea Nitrogen 12 mg/dL (9-16); Calcium 9.5 mg/dL (8.4-10.2); Carbon Dioxide 30 mmol/L (22-29); Chloride 101 mmol/L (96-108); Creatinine Clr Calc Pharmacy 79.6; Estimated Glomerular Filt Rate > 60; Glucose Random 96 mg/dL (60-115); Potassium 4.1 mmol/L (3.3-5.1); Sodium 142 mmol/L (135-145)
[2025-01-24] VITALS (23 sets, daily range): BP systolic 81–159; BP diastolic 42–86; PULSE 63–76; RESP 13–18; TEMP 35.9–36.7; O2SAT 93–99; BMI 36.4; BMI 38.9
[2025-01-24] MEDS: Lactated Ringers 1,000 ML 100 ML IVCONT ×3 (06:24→20:56)
--- NOTE | 2025-01-24 07:19 | MHC.SHP ---
Pre-Procedural Eval Section A - 24 Hr Update-Section A only Date of Service: 01/24/25 Section B - Complete if H&P > 30 days Chief Complaint: Benign neoplasm, unspecified site Details of Present Illness: Flat polyp in the hepatic flexure, tubulovillous adenoma, not endoscopically resectable Relevant Family History (Specify if Yes): No Relevant Social History: None Present Medications: see Short Stay Collaborative assessment Medical History: Significant History (Obesity, GERD) Allergies: Allergies Allergy/AdvReac Type Severity Reaction Status Date / Time shellfish derived [shellfish] Allergy Severe passes Verified 01/09/25 11:01 out oxycodone [From PERCOCET] AdvReac Intermediate paranoia/an Verified 01/10/25 12:53 xiety Review of Systems Sugical H&P ROS: Negative: Constitution, Cardiovascular, Respiratory and Gastrointestinal Exam Surgical H&P Exam: Normal: Heart, Normal: Lungs and Normal: Abdomen Plan Diagnosis/Plan: Unchanged I have reviewed the history and physical and performed a pertinent physical examination on my patient. No changes have occurred unless specified. Time Spent With Patient Time: Total time managing care of this patient today ____ minutes.
--- NOTE | 2025-01-24 07:30 | HO.ANESPROP2 ---
Documented by User: Chantel Armendariz NP 01/11/25 14:13 HPI - Anesthesia Eval Consult details Narrative: 69yo F for Right Colon Resection Laparoscopic Hand Assisted, possible open, 01/24/25 No recent illness No CP/SOB with ADLs Presyncopal episodes every few months - last occurred during week of 01/02/2025. Never with LOC. Loop recorder in situ, but no follow up with cardiology since implanted 2022. 11/2024 interrogation without any events. Reviewed with Dr. Barrington VELÁZQUEZ 2009 - some memory loss residual - aspirin 81 mg daily GERD: ppi prn ~ 1 x weekly PMFSH Active Problems Active Problems: All Active Problems Viral lower respiratory tract infection (Acute) Personal history of colonic polyps (Acute) Epigastric pain (Acute) Pre-op examination (Acute) Osteopenia (Acute) Fatty liver disease, nonalcoholic (Acute) Cataracts, bilateral (Acute) Constipation (Acute) Flat adenoma (Acute) Colon polyp (Acute) GERD (gastroesophageal reflux disease) (Acute) Past Medical History Medical History (Updated 01/10/25 @ 13:20 by Chantel Armendariz NP) Duodenal ulcer Pre-syncope TIA (transient ischemic attack) Pre-diabetes Thyroid nodule Fatty liver Flat adenoma Colon polyp Depression GERD (gastroesophageal reflux disease) High cholesterol Hypertension Seizure disorder Morbid obesity Family History Family History Daughter Thyroid cancer Maternal Grandmother Colostomy in place Paternal Grandmother Diabetes Mother HTN (hypertension) Maternal Grandfather Heart disease Family history of problems with anesthesia: No Surgical History Surgical History (Updated 01/10/25 @ 12:53 by Claudia Wong RN) Hx of bilateral cataract extraction History of colonoscopy (~11/04/24) History of loop recorder S/P pilonidal cyst excision History of hysterectomy History of cholecystectomy H/O esophagogastroduodenoscopy (09/27/24) History of Problems with Anesthesia: No Social History Social History Are you a primary dog day care attendant to a significant other at home: No Do you presently have visiting nurse or other home services: No Alcohol intake: current Alcohol intake frequency: holidays/special occasions only Patient Tobacco Use Status: Former Tobacco user Tobacco use type: Cigarette Years Smoked: 10 Use of substances other than those prescribed or required for medical reasons: No Have you been hit, kicked, punched, or otherwise hurt by someone within the past year? If so, by whom?: No Spiritual Healthcare Practices: no Oriental Orthodox Healthcare Practices: no-Zoroastrian Cultural Healthcare Practices: no Are you DNR?: No Advance Directives Information Provided: Yes (as above noted) Advance Directives on File: No FDLMP: n/a Poor oral hygiene: No Meds Allergies Allergy/AdvReac Type Severity Reaction Status Date / Time shellfish derived [shellfish] Allergy Severe passes Verified 01/09/25 11:01 out oxycodone [From PERCOCET] AdvReac Intermediate paranoia/an Verified 01/10/25 12:53 xiety Home Medications ?Medication ?Instructions ?Recorded ?Confirmed ?Last Taken ?Type aspirin 81 mg capsule 81 mg PO QAM 06/07/24 01/10/25 09/24/24 History cholecalciferol (vitamin D3) 25 25 mcg PO QAM 06/07/24 01/10/25 Unknown History mcg (1,000 unit) capsule escitalopram oxalate 10 mg tablet 10 mg PO QAM 06/07/24 01/10/25 Unknown History omeprazole 40 mg capsule,delayed 40 mg PO DAILY PRN Acid Reflux 06/07/24 01/10/25 Unknown History release rosuvastatin 20 mg tablet 20 mg PO QAM 06/07/24 01/10/25 Unknown History albuterol sulfate 90 mcg/actuation 2 puff inhalation Q6H PRN 01/10/25 01/10/25 Unknown History aerosol inhaler bronchitis hydrochlorothiazide 25 mg tablet 25 mg PO QAM 01/10/25 01/10/25 Unknown History losartan 50 mg tablet 100 mg PO QAM 01/10/25 01/24/25 Unknown History magnesium chloride 64 mg 64 mg PO QAM 01/10/25 01/10/25 Unknown History (magnesium chloride) tablet Exam Height,Weight and Vital Signs: BMI result Body Mass Index 36.1 Height 5 ft 3 in Weight 92.533 kg Vital Signs Pulse Rate 60 01/10/25 13:02 Respiratory Rate 20 01/10/25 13:02 Blood Pressure 148/74 H 01/10/25 13:02 Pulse Oximetry 97 01/10/25 13:02 Oxygen Delivery Method Room Air 01/10/25 13:02 Pertinent Lab Results Pertinent Lab Results: Lab Results 01/10/25 01/10/25 Range/Units 14:09 14:14 WBC 6.2 (4.8-10.8) X10*3/uL RBC 4.77 (4.20-5.50) X10*6/uL Hgb 13.7 (12.0-16.0) g/dl Hct 41.4 (37.0-47.0) % MCV 86.8 (80.0-98.0) fL MCH 28.7 (27.0-33.0) pg MCHC 33.1 (31.0-35.0) g/dl RDW 13.5 (11.0-16.0) % Plt Count 225 (160-400) X10*3/uL MPV 9.3 L (9.4-12.3) fL Absolute Nucleated RBC 0.000 (0.0-0.012) X10*3/uL Nucleated RBC % (auto) 0.0 (0.0-0.2) /100WBC Sodium 142 (135-145) mmol/L Potassium 4.1 (3.3-5.1) mmol/L Chloride 101 (96-108) mmol/L Carbon Dioxide 30 H (22-29) mmol/L Anion Gap 15 (12-20) BUN 12 (9-16) mg/dL Creatinine 0.71 (0.5-1.4) mg/dL Estim Creat Clear Calc 79.6 Estimated GFR > 60 Random Glucose 96 (60-115) mg/dL Calcium 9.5 (8.4-10.2) mg/dL Blood Type A Positive Antibody Screen NEGATIVE Narrative Narrative: EKG 12/2024 Vent. Rate : 59 BPM Atrial Rate : 59 BPM P-R Int : 192 ms QRS Dur : 82 ms QT Int : 434 ms P-R-T Axes : 49 24 75 degrees QTcB Int : 429 ms Sinus bradycardia Otherwise normal ECG When compared with ECG of 12-Jan-2016 11:26, No significant change was found ECHO 2023 Summary The left ventricular size is normal. Left ventricular wall thickness is normal. The LV systolic function is normal. The left ventricular ejection fraction is visually estimated at 55 to 60%. There are no definite regional wall motion abnormalities. Indeterminate diastolic function. Right ventricular size and systolic function appear grossly normal. Normal biatrial size. No significant valve dysfunction. Normal CVP estimate. There is no evidence of pulmonary hypertension. There appears to be a PFO or small ASD by color Doppler. There is lipomatous hypertrophy of the interatrial septum. Comparison Comparison is made to the study of September 30, 2019. No definite significant change. Airway Mallampati Class: II TM Dist: >3cm Neck ROM: Full Loose/Missing/Broken Teeth: No (permanent bridge bilat upper) Heart: RRR Lungs: CTAB Assessment and Plan Assessment Anesthesia Assessment: Anesthesia Plan Discussed and PAT Visit Final Anesthetic Review Family History of Problems with Anesthesia: No History of Problems with Anesthesia: No Documented by User: Rufina Vera DO 01/24/25 08:20 [facility] Past Medical History Medical History (Updated 01/10/25 @ 13:20 by Chantel Armendariz NP) Duodenal ulcer Pre-syncope TIA (transient ischemic attack) Pre-diabetes Thyroid nodule Fatty liver Flat adenoma Colon polyp Depression GERD (gastroesophageal reflux disease) High cholesterol Hypertension Seizure disorder Morbid obesity Family History Family History Daughter Thyroid cancer Maternal Grandmother Colostomy in place Paternal Grandmother Diabetes Mother HTN (hypertension) Maternal Grandfather Heart disease Family history of problems with anesthesia: No Surgical History Surgical History (Updated 01/10/25 @ 12:53 by Claudia Wong RN) Hx of bilateral cataract extraction History of colonoscopy (~11/04/24) History of loop recorder S/P pilonidal cyst excision History of hysterectomy History of cholecystectomy H/O esophagogastroduodenoscopy (09/27/24) History of Problems with Anesthesia: No Social History Social History Are you a primary dog day care attendant to a significant other at home: No Do you presently have visiting nurse or other home services: No Alcohol intake: current Alcohol intake frequency: holidays/special occasions only Patient Tobacco Use Status: Former Tobacco user Tobacco use type: Cigarette Years Smoked: 10 Use of substances other than those prescribed or required for medical reasons: No Have you been hit, kicked, punched, or otherwise hurt by someone within the past year? If so, by whom?: No Spiritual Healthcare Practices: no Oriental Orthodox Healthcare Practices: no-Zoroastrian Cultural Healthcare Practices: no Are you DNR?: No Advance Directives Information Provided: Yes (as above noted) Advance Directives on File: No FDLMP: n/a Poor oral hygiene: No Meds Allergies Allergy/AdvReac Type Severity Reaction Status Date / Time shellfish derived [shellfish] Allergy Severe passes Verified 01/09/25 11:01 out oxycodone [From PERCOCET] AdvReac Intermediate paranoia/an Verified 01/10/25 12:53 xiety Home Medications ?Medication ?Instructions ?Recorded ?Confirmed ?Last Taken ?Type aspirin 81 mg capsule 81 mg PO QAM 06/07/24 01/10/25 09/24/24 History cholecalciferol (vitamin D3) 25 25 mcg PO QAM 06/07/24 01/10/25 Unknown History mcg (1,000 unit) capsule escitalopram oxalate 10 mg tablet 10 mg PO QAM 06/07/24 01/10/25 Unknown History omeprazole 40 mg capsule,delayed 40 mg PO DAILY PRN Acid Reflux 06/07/24 01/10/25 Unknown History release rosuvastatin 20 mg tablet 20 mg PO QAM 06/07/24 01/10/25 Unknown History albuterol sulfate 90 mcg/actuation 2 puff inhalation Q6H PRN 01/10/25 01/10/25 Unknown History aerosol inhaler bronchitis hydrochlorothiazide 25 mg tablet 25 mg PO QAM 01/10/25 01/10/25 Unknown History losartan 50 mg tablet 100 mg PO QAM 01/10/25 01/24/25 Unknown History magnesium chloride 64 mg 64 mg PO QAM 01/10/25 01/10/25 Unknown History (magnesium chloride) tablet Exam Exam Date and Time: 01/24/25 0725 Airway Mallampati Class: II TM Dist: >3cm Neck ROM: Full Loose/Missing/Broken Teeth: No (permanent bridge upper and lower) Heart: S1S2 Assessment and Plan Assessment Anesthesia Assessment: Anesthesia Plan Discussed and Chart Reviewed Final Anesthetic Review Family History of Problems with Anesthesia: No History of Problems with Anesthesia: No NPO: Yes ASA Class: II Final Preanesthetic Review: No Changes in Pt Med Stat, Meds/Allgs Chart Reviewed, Consent Obtained/Reviewed and Anes Risks/Benef Reviewed Patient Risk: Low Procedure Risk: Intermediate Anesthetic Plan Anesthetic Plan: GA, Regional Block (bilateral transversus abdominis plane block and bilateral rectus sheath block) and Agree w/ Assess. and Plan Disposition: Standard PACU
[2025-01-24] MEDS: cefoTEtan disodium 2 GM VIAL IVPUSH (08:00)
--- NOTE | 2025-01-24 09:06 | W.PM.OPN ---
Operative Note Operative Note Date of Service: 01/24/25 Narrative: Preop diagnosis: Flat tubulovillous adenoma, hepatic flexure Postop diagnosis: The same Procedure: Hand assisted laparoscopic right colon resection Surgeon: Edmund Thomason MD medical assistant internal medicine: RIANA Duncan The patient is a 69-year-old female who has had this flat polyp in the hepatic flexure, tubulovillous adenoma on pathology. This was deemed to be non resectable endoscopically. She was referred to me for resection. She understood the technique of the planned procedure as well as the risks, benefits, and alternatives She was brought to the operating room. She was placed supine under general anesthesia via endotracheal tube. A TAP block and rectus sheath block was done by the anesthesiologist. A Clark catheter was inserted. The abdomen was then prepped and draped in the usual sterile fashion. A surgical time-out had been done earlier. The patient received Cefotan 2 g IV preoperatively I made a short midline incision above the umbilicus with a blade 15. This carried down through the full-thickness of the skin and thick subcutaneous fat down to the fascia. It was noted that the patient had a very thick amount of subcutaneous fat in view of her obesity. The fascia was incised. The peritoneum was entered. The Enoc wound retractor was positioned. There were no adhesions surrounding the fascia. I attached the GelPort along with the insufflating port. We insufflated the pressure of 15 mm Hg. We used the 10 mm 30 degree laparoscope through the insufflating port. With laparoscopic visualization and inserted a 5/12 mm port in the epigastric area as well as the left upper quadrant through small stab incisions. The laparoscope was then moved to the epigastric area. The patient was placed in a left side down position. I inserted my hand through the GelPort. I reflected all bowel loops away from the right side. This allowed me to visualize the entire right colon started with the cecum all the way to the flexure. The tattoo markings in the hepatic flexure were noted. I proceeded to mobilize the right colon by dividing the ligamentous attachments along the white line of Toldt with the LigaSure. I also mobilize the cecum by dividing all the attachments of the ileocecal area. I continued to mobilize the hepatic flexure by dividing the hepatocolic ligaments gently and carefully. I mobilized the retroperitoneum by dividing the filmy attachments until was able to expose the duodenum. This was therefore the medial limit of our dissection I continued to divide the hepatocolic ligaments until I felt that we had adequate mobilization of the transverse colon proximally I tested for length and it appeared that we had enough length for anastomosis extracorporeally I therefore desufflated. I brought out the entire right colon from the terminal ileum all the way to the proximal transverse. The created a mesenteric window at my point of dissection in the proximal transverse colon. I transected the transverse colon at this segment using the MARICRUZ 60 mm stapler. I created a mesenteric window at the distal ileum about 10 cm from the ileocecal valve as well and divided the distal ileum at this meant with a MARICRUZ 60 mm stapler I then marked my planned line of transection of the attached mesentery by scoring the peritoneum with electrocautery. I used the LigaSure to divide the attached mesentery both proximally and distally, making sure that we had included the mesenteric basin for adequate oncologic resection. I then define the ileal colic pedicle. I thin this out with the LigaSure until was able to apply the right angle clamp. I transected the pedicle between clamps. This was a high ligation of the pedicle. I ligated the pedicle with a Polysorb 2-0 tie . The specimen was sent for immediate gross exam I then proceeded to do my anastomosis. I aligned the transverse colon stump as well as this ileal stump at the anti mesenteric border. I excised the apex of each staple line at the anti mesenteric border with curved Willis scissors. I entered the lumen. I positioned each arm of the MARICRUZ 60 mm stapler into the lumen at the anti mesenteric side. I locked the MARICRUZ stapler, making sure that we did not catch any bowel loop in between. I fired the stapler to create our [id number] anastomosis. I removed the stapler and then the lumen. There was note of good hemostasis and the staple line appeared intact. I completed the anastomosis by applying a TA 60 mm stapler at the enterotomy site. I observed for hemostasis. I applied seromuscular sutures at the crotch of the anastomosis to release tension at the staple line I examined the lumen by palpating with the index and the thumb and we had very patent anastomosis. There was note of good hemostasis throughout. The staple lines to have good blood supply with no signs of ischemia I therefore returned the bowel loops back into the peritoneal cavity. We examined laparoscopically. I pulled the omentum to overlie the anastomosis I examined all 4 quadrants. There was no evidence of any bowel injury, or any bleeding. I then removed the Enoc wound retractor and the GelPort. We changed gloves at this point. I closed the fascia with a running Maxon 1 stitch. I examined the fascial closure of the midline laparoscopically and there was no bowel loop caught by the sutures. I therefore desufflated through the remaining port sites. I removed all ports under vision. All skin incisions were closed with skin sam Dressings were applied. The procedure was completed. The patient tolerated the procedure well. Estimated blood loss about 25 cc There were no immediate complications. The patient was extubated without difficulty and transferred to the recovery room with stable vital signs. We received a phone call from the pathologist at the end of the procedure confirming that the polyp was within the specimen.
--- OUTSIDE RECORDS SUMMARY | 2025-01-24 10:18 | XMS_ITS | Clinical Summary ---
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 Name Role Phone Unavailable Primary Care Provider Unavailabl e Source Comments PLEASE NOTE, if this patient is a minor, it may be UNLAWFUL to discuss sensitive information that is contained in these records (such as FAMILY PLANNING, MENTAL HEALTH or SUBSTANCE ABUSE) with the minor patient's parent or other person without the patient's specific authorization.[facility] Immunizations Immunization Administration Dates Next Due Moderna COVID-19 Vaccine, [...] 1954 Lipid Screening 1954 Tobacco Screening 1954 Hypertension Screening (#1) 1972 Imm-DTaP/Tdap/Td (1 - Tdap) 1973 Breast Cancer Screening (Mammogram) 1994 CT Colonography 1999 Colonoscopy 1999 Colorectal Cancer Screening 1999 FIT/gFOBT 1999 Fecal DNA 1999 Flexible Sigmoidoscopy 1999 Imm-Pneumococcal 65+ (1 of 1 - PCV) 2004 Bone Density Screening 2019 Falls Prevention 2019 [id number] ( season) 2024 021, 12/04/2020 Imm-Influenza (#1) 2024 05/26/2020, 1 , 05/22/2018 Alcohol and Drug Screen 08/31/2024 Depression Annual Screen 08/31/2024 Imm-Zoster, Recombinant Completed 07/27/2020, 05/26 Insurance [facility] Member Subscriber Plan / Payer (Ef fective 2019-Present) Name:Va Felix Relation to Subscriber:Self Name:Va Felix Payer ID:[id number] Group ID:[id number] Type:Indemnity Address: [facility] [address] [place] [address]
[2025-01-24] MEDS: 0.9 % Sodium Chloride Flush 3 ML SYRINGE IVFLUSH (11:59)
--- NOTE | 2025-01-24 13:50 | PM.EVENT ---
Event Note Date of Service: 01/24/25 Event Note: Seen on afternoon rounds Status post right colon resection earlier Says she has adequate pain control Looks well Stable vital signs Abdomen is soft Good urine output Continue pain management Incentive spirometry Out of bed to chair at bedside Time Spent With Patient Time: Total time managing care of this patient today ____ minutes.
--- NOTE | 2025-01-24 14:47 | PHA.MEDREC ---
Addendum entered by Yolanda Del Angel RPh 01/24/25 15:02: Reviewed by [facility] Original Note: Pharmacy Consult ? Medication Reconciliation Pharmacy has reviews the medication reconciliation done by nursing. Spoke to patient to confirm med list. Patient states she she is not taking Albuterol HFA inhaler, and Escitalopram 10 mg. patient confirmed she is taking Buspirone 7.5 mg daily not BID. Added to med list. patient takes Omeprazole 20 mg not 40 mg, corrected med rec.
[2025-01-24] MEDS: Acetaminophen 1,000 MG/100 ML PIGGYBACK 400 MG IV ×2 (15:26→20:55)
[2025-01-24] MEDS: Calcium Carbonate 750 MG TAB.CHEW PO (18:18)
[2025-01-24] MEDS: Morphine Sulfate 4 MG/ML CARTRIDGE IVPUSH (21:01)
[2025-01-25] MEDS: Acetaminophen 1,000 MG/100 ML PIGGYBACK 400 MG IV ×4 (02:52→20:57)
[2025-01-25] MEDS: Morphine Sulfate 4 MG/ML CARTRIDGE IVPUSH ×2 (03:03→20:57)
[2025-01-25 03:09] VITALS: BP 142/66; PULSE 75; RESP 18; TEMP 37.1; O2SAT 95
[2025-01-25] MEDS: Omeprazole 40 MG CAPSULE.DR PO (05:23)
[2025-01-25] MEDS: Lactated Ringers 1,000 ML 100 ML IVCONT (06:21)
[2025-01-25 06:35] LABS: Hematocrit 35.9 % (37.0-47.0); Hemoglobin 11.7 g/dl (12.0-16.0); Mean Corpuscular HGB Conc 32.6 g/dl (31.0-35.0); Mean Corpuscular Volume 88.9 fL (80.0-98.0); Mean Platelet Volume 9.8 fL (9.4-12.3); Platelet Count 196 X10*3/uL (160-400); Red Blood Count 4.04 X10*6/uL (4.20-5.50); Red Cell Distribution Width 13.7 % (11.0-16.0)
--- NOTE | 2025-01-25 06:38 | PM.PNGS ---
Subjective Subjective Date of Service: 01/25/25 <[facility] - Last Filed: 01/25/25 07:33> 01/25/25 <Clarisa Duncan PA-C - Last Filed: 01/25/25 08:03> 01/25/25 <Edmund Thomason MD - Last Filed: 01/25/25 08:41> Interval history: Patient reports generally feeling well, but feels bloated. Reporting R flank/lower back pain since last night, currently 10/10. Reports passing flatus x1, using incentive spirometry, minimal appetite but tolerating diet. Denies being out of bed or BM yet. Denies headache, fever, chills, chest pain, SOB, N/V, urinary symptoms. <[facility] Last Filed: 01/25/25 07:33> Physical Exam Vital Signs: Vital Signs: Last Vital Signs Temp 98.7 F 01/25/25 03:09 Pulse 75 01/25/25 03:09 Resp 18 01/25/25 03:09 BP 142/66 H 01/25/25 03:09 Pulse Ox 95 01/25/25 03:09 O2 Del Method Nasal Cannula 01/25/25 03:09 O2 Flow Rate 2 01/25/25 03:09 FiO2 50 01/24/25 11:00 BMI result Body Mass Index 38.9 <[facility] Last Filed: 01/25/25 07:33> Const: General: cooperative, no acute distress, alert and awake <[facility] Last Filed: 01/25/25 07:33> Orientation/consciousness: patient oriented x3 <[facility] Last Filed: 01/25/25 07:33> Resp: Effort & Inspection: normal respiratory effort and able to speak in complete sentences <[facility] Last Filed: 01/25/25 07:33> GI: Other: Incision bandages intact with minimal dry serosanginous fluid. Mild tenderness to palpation, L > R side. Mildly distended. Grossly normal appearing skin across R flank/lower back. <[facility] Last Filed: 01/25/25 07:33> Palpation (GI): Soft to palpation, Tenderness to palpation present (GI), no guarding and not rigid <[facility] Last Filed: 01/25/25 07:33> Palpation (GI): Tenderness to palpation present (GI) (mild diffuse, right flank) <Clarisa Duncan PA-C - Last Filed: 01/25/25 08:03> Skin: General skin exam: no rashes or lesions noted <Clarisa Duncan PA-C - Last Filed: 01/25/25 08:03> Neuro: General: patient oriented x3 and moves all extremities <Suzette Trinh - Last Filed: 01/25/25 07:33> Objective Data Active Medications Albuterol Sulfate (Albuterol Sulfate 90 Mcg 8 Gm Inhaler) 2 puff INHALE Q6H PRN PRN Reason: bronchitis Aspirin (Aspirin Enteric Coated 81 Mg Tablet.) 81 mg PO DAILY [facility] Atorvastatin Calcium (Atorvastatin Calcium 80 Mg Tablet) 80 mg PO DAILY [facility] Calcium Carbonate (Calcium Carbonate 750 Mg Tab.Chew) 750 mg PO Q4H PRN PRN Reason: Heartburn Last Admin: 01/24/25 18:18 Dose: 750 mg Documented By: CHASITY Escitalopram Oxalate (Escitalopram Oxalate 10 Mg Tablet) 10 mg PO DAILY [facility] Heparin Sodium (Porcine) (Heparin Sodium,Porcine 5,000 Unit/Ml Vial) 5,000 unit SUBCUT Q8H [facility] Lactated Ringer's (Lr) 1,000 mls @ 100 mls/hr IVCONT .Q10H [facility] Last Admin: 01/25/25 06:21 Dose: 100 mls/hr Documented By: JONATHAN Acetaminophen (Ofirmev) 1,000 mg in 100 mls @ 400 mls/hr IV Q6H [facility] Last Infusion: 01/25/25 03:10 Dose: Infused Documented By: JONATHAN Losartan Potassium (Losartan Potassium 50 Mg Tablet) 100 mg PO DAILY [facility]; Protocol Morphine Sulfate (Morphine Sulfate 4 Mg/Ml Cartridge) 4 mg IVPUSH Q4H PRN; Protocol PRN Reason: Pain, Severe (Pain Scale 7-10) Last Admin: 01/25/25 03:03 Dose: 4 mg Documented By: JONATHAN Omeprazole (Omeprazole 40 Mg Capsule.) 40 mg PO DAILY@0630 [facility] Last Admin: 01/25/25 05:23 Dose: 40 mg Documented By: JONATHAN Sodium Chloride (0.9 % Sodium Chloride Flush 3 Ml Syringe) 3 ml IVFLUSH QSHIFT [facility] Last Admin: 01/24/25 20:38 Dose: Not Given Documented By: JONATHAN Non-Admin Reason: IV Running Tramadol HCl (Tramadol Hcl 50 Mg Tablet) 50 mg PO Q4H PRN PRN Reason: Pain, Moderate(Pain Scale 4-6) Vitamin D (Cholecalciferol (Vitamin D3) 25 Mcg Tablet) 25 mcg PO DAILY [facility] <[facility] - Last Filed: 01/25/25 07:33> Labs CBC & Chem 7: 01/25/25 06:02 01/25/25 06:02 <[facility] - Last Filed: 01/25/25 07:33> Labs: Laboratory Results - last 24 hr 01/25/25 06:02 MCV 88.9 MCH 29.0 MCHC 32.6 RDW 13.7 Plt Count 196 MPV 9.8 Absolute Nucleated RBC 0.000 Nucleated RBC % (auto) 0.0 <[facility] - Last Filed: 01/25/25 07:33> Procedures Date of Service Date of Service: 01/25/25 <[facility] - Last Filed: 01/25/25 07:33> 01/25/25 <Clarisa Duncan PA-C - Last Filed: 01/25/25 08:03> 01/25/25 <Edmund Thomason MD - Last Filed: 01/25/25 08:41> Progress Note: A&P Assessment and plan (1) Flat adenoma: Status: Acute <[facility] - Last Filed: 01/25/25 07:33> Assessment and Plan: Says she had a good night Good pain control Denies flatus Abdomen is soft Dressings dry Good urine output DC Jorgensen today Ambulate Keep on clear liquids Await return of GI function Looks well overall Seen and examined independently <Edmund Thomason MD - Last Filed: 01/25/25 08:41> (2) S/P colon resection: Status: Acute <[facility] - Last Filed: 01/25/25 07:33> Assessment and Plan: 69 year old female POD1 from right colon resection with anastomosis. Reports new R flank/lower back pain since last night, currently 2/10, will continue to monitor Incision bandages intact with minimal dry serosanginous fluid. Mild tenderness to palpation over abd, L > R side. Mildly distended. Reports minimal appetite, tolerating diet well, using incentive spirometry. Flatus x1, no BM yet. Spoke with nursing who reported O2 dropped to 89% overnight, so they started her on 2L nasal cannula. Patient reports not being on O2 at home. Adequate urine output at 1900, can consider d/c jorgensen. CBC with leukocytosis at 16, likely reactive, H/H reassuring at 11.7/35.9, chemistry within normal limits. Plan: -D/C jorgensen -monitor for return of bowel function (flatus/BM) -encourage ambulation/OOB -continue incentive spirometry 10x/hour -tolerating clears well, check in on afternoon rounds, consider advancing diet -continue DVT prophylaxis <Suzette Trinh - Last Filed: 01/25/25 07:33> 69 year old female POD1 from right colon resection with anastomosis. Reports new R flank/lower back pain since last night, currently 2/10, will continue to monitor Incision bandages intact with minimal dry serosanginous fluid. Mild tenderness to palpation over abd, L > R side. Mildly distended. Reports minimal appetite, tolerating diet well, using incentive spirometry. Flatus x1, no BM yet. Spoke with nursing who reported O2 dropped to 89% overnight, so they started her on 2L nasal cannula. Patient reports not being on O2 at home. Adequate urine output at 1900, can consider d/c jorgensen. CBC with leukocytosis at 16, likely reactive, H/H reassuring at 11.7/35.9, chemistry within normal limits. Plan: -D/C jorgensen -monitor for return of bowel function (flatus/BM) -encourage ambulation/OOB -continue incentive spirometry 10x/hour -tolerating clears well, check in on afternoon rounds, consider advancing diet -continue DVT prophylaxis Agree with above assessment and plan by Ziggy ROMAN. POD #1 s/p Hand assisted laparoscopic right colon resection. Patient doing fairly well post op, pain well controlled, no evidence of GI function, mildly distended this morning, dressings intact. VSS. Off supplemental O2 this am. AM labs reviewed. Will keep on clear liquids until evidence of GI function. Increase activity and ambulation, IS use. Gentle IVF. Gabe jorgensen. Patient comfortable with plan. Await pathology. <Clarisa Duncan PA-C - Last Filed: 01/25/25 08:03> Time Spent With Patient Time: Total time managing care of this patient today ____ minutes. < Last Filed: 01/25/25 07:33> Quality Stroke Does the patient have a stroke diagnosis?: No <Clarisa Duncan PA-C - Last Filed: 01/25/25 08:03> VTE Prior VTE?: No <Clarisa Duncan PA-C - Last Filed: 01/25/25 08:03> VTE Risk Level:: Medical - moderate - high < Filed: 01/25/25 07:33> VTE Device Contraindication: N/A - Device Ordered < Filed: 01/25/25 07:33> VTE Drug Contraindication: N/A - Med Ordered < Filed: 01/25/25 07:33>
[2025-01-25 06:54] LABS: Anion Gap 13 (12-20); Blood Urea Nitrogen 11 mg/dL (9-16); Calcium 8.4 mg/dL (8.4-10.2); Carbon Dioxide 28 mmol/L (22-29); Chloride 104 mmol/L (96-108); Creatinine Clr Calc Pharmacy 103.3; Estimated Glomerular Filt Rate > 60; Glucose Random 123 mg/dL (60-115); Potassium 4.5 mmol/L (3.3-5.1); Sodium 140 mmol/L (135-145)
[2025-01-25 07:30] VITALS: BP 137/64; PULSE 71; RESP 16; TEMP 36.8; O2SAT 94
[2025-01-25] MEDS: busPIRone HCl 5 MG TABLET 7.5 MG PO (08:15)
[2025-01-25] MEDS: Losartan Potassium 50 MG TABLET 100 MG PO (08:15)
[2025-01-25] MEDS: Aspirin Enteric Coated 81 MG TABLET.DR PO (08:15)
[2025-01-25] MEDS: Cholecalciferol (Vitamin D3) 25 MCG TABLET PO (08:15)
[2025-01-25] MEDS: Atorvastatin Calcium 80 MG TABLET PO (08:16)
--- NOTE | 2025-01-25 09:00 | PC.NURSE ---
jorgensen cath removed at 0800 , pt DTV at 1400
[2025-01-25] MEDS: Heparin Sodium,Porcine 5,000 UNIT/ML VIAL 5000 UNIT SUBCUT ×2 (09:46→18:01)
--- NOTE | 2025-01-25 09:52 | MHC.CM.PN ---
IMM delivered. Patient lives in a home w/ . Functionally independent. Denies use of DME & services. PCP Tiara Reed MD Reports she has an HCP naming HCAs 1) Esa and 2) daughter Yancy Greenfield DP: Goal is home self care. to transport. CM will continue to follow.
--- NOTE | 2025-01-25 11:57 | HO.POSTANES ---
Post Anesthesia Evaluation Post Anesthesia Evaluation Date of Service: 01/25/25 Vital Signs: Vital Signs Temp Pulse Resp BP Pulse Ox O2 Del Method O2 Flow Rate 01/25/25 07:30 98.3 F 71 16 137/64 94 Nasal Cannula 2.0 01/25/25 03:09 98.7 F 75 18 142/66 H 95 Nasal Cannula 2 Anesthesia: General Endotracheal-GETA Mental Status: Awake Pain Control: Satisfactory Nausea/Vomiting: None Hydration: Adequate Anesthesia-Related Issues: No Anes. Related Issues
[2025-01-25 15:39] VITALS: BP 127/60; PULSE 72; RESP 16; TEMP 36.8; O2SAT 96
--- NOTE | 2025-01-25 15:48 | PM.EVENT ---
Event Note Date of Service: 01/25/25 Event Note: Seen earlier afternoon rounds She has been ambulating Sitting on the recliner Says she actually has passed flatus multiple times Tolerating clear liquids Abdomen is soft Voiding freely Looks well overall Hopefully we can advance her diet tomorrow Discussed with family Time Spent With Patient Time: Total time managing care of this patient today ____ minutes.
[2025-01-25 19:14] VITALS: BP 133/64; PULSE 73; RESP 18; TEMP 36.7; O2SAT 94
[2025-01-25] MEDS: Lactated Ringers 1,000 ML 60 ML IVCONT (20:58)
[2025-01-26] MEDS: Heparin Sodium,Porcine 5,000 UNIT/ML VIAL 5000 UNIT SUBCUT ×3 (01:39→17:46)
[2025-01-26] MEDS: Acetaminophen 1,000 MG/100 ML PIGGYBACK 400 MG IV ×4 (03:05→20:47)
[2025-01-26 03:31] VITALS: BP 121/60; PULSE 65; RESP 18; TEMP 36.7; O2SAT 95
[2025-01-26] MEDS: Omeprazole 40 MG CAPSULE.DR PO (05:39)
--- NOTE | 2025-01-26 06:24 | PM.PNGS ---
Subjective Subjective Date of Service: 01/26/25 <[facility] - Last Filed: 01/26/25 07:07> 01/26/25 <Clarisa Duncan PA-C - Last Filed: 01/26/25 07:28> 01/27/25 <Edmund Thomason MD - Last Filed: 01/27/25 09:58> Interval history: Patient up and ambulating around unit and room at the time of my visit. Reporting feeling bloated with minimal abd pain, except when touching her incision sites and bending. Reporting R flank/lower back pain she had yesterday has resolved. Reports tolerating diet well, using incentive spirometry, ambulating several times, and passing flatus several times. No BM yet. Denies headache, fever, chest pain, SOB, N/V, urinary symptoms. <[facility] Last Filed: 01/26/25 07:07> Physical Exam Vital Signs: Vital Signs: Last Vital Signs Temp 98.0 F 01/26/25 03:31 Pulse 65 01/26/25 03:31 Resp 18 01/26/25 03:31 BP 121/60 01/26/25 03:31 Pulse Ox 95 01/26/25 03:31 O2 Del Method Room Air 01/26/25 03:31 O2 Flow Rate 2.0 01/25/25 07:30 FiO2 50 01/24/25 11:00 BMI result Body Mass Index 38.9 <[facility] Last Filed: 01/26/25 07:07> Const: General: cooperative, no acute distress, alert and awake <[facility] Last Filed: 01/26/25 07:07> Orientation/consciousness: patient oriented x3 <[facility] - Last Filed: 01/26/25 07:07> Resp: Effort & Inspection: normal respiratory effort and able to speak in complete sentences <[facility] Last Filed: 01/26/25 07:07> GI: Other: Incision dressings intact with minimal dry serosanginous fluid. No erythema, edema, purulence visible. Mild, diffuse tenderness to palpation. Mildly distended. <[facility] Last Filed: 01/26/25 07:07> Other: Incision clean, steris intact. No erythema, edema, purulence visible. Mild, diffuse tenderness to palpation. Mildly distended. <Clarisa Duncan PA-C - Last Filed: 01/26/25 07:28> Palpation (GI): Soft to palpation, Tenderness to palpation present (GI), no guarding and not rigid <[facility] - Last Filed: 01/26/25 07:07> Skin: General skin exam: no rashes or lesions noted <[facility] Last Filed: 01/26/25 07:07> Neuro: General: patient oriented x3 and moves all extremities <[facility] Last Filed: 01/26/25 07:07> Objective Data Active Medications Albuterol Sulfate (Albuterol Sulfate 90 Mcg 8 Gm Inhaler) 2 puff INHALE Q6H PRN PRN Reason: bronchitis Aspirin (Aspirin Enteric Coated 81 Mg Tablet.Dr) 81 mg PO DAILY [facility] Last Admin: 01/25/25 08:15 Dose: 81 mg Documented By: ESTEBAN Atorvastatin Calcium (Atorvastatin Calcium 80 Mg Tablet) 80 mg PO DAILY [facility] Last Admin: 01/25/25 08:16 Dose: 80 mg Documented By: ESTEBAN Buspirone HCl (Buspirone Hcl 5 Mg Tablet) 7.5 mg PO DAILY [facility] Last Admin: 01/25/25 08:15 Dose: 7.5 mg Documented By: ESTEBAN Calcium Carbonate (Calcium Carbonate 750 Mg Tab.Chew) 750 mg PO Q4H PRN PRN Reason: Heartburn Last Admin: 01/24/25 18:18 Dose: 750 mg Documented By: CHASITY Heparin Sodium (Porcine) (Heparin Sodium,Porcine 5,000 Unit/Ml Vial) 5,000 unit SUBCUT Q8H [facility] Last Admin: 01/26/25 01:39 Dose: 5,000 unit Documented By: JONATHAN Hydrochlorothiazide (Hydrochlorothiazide 25 Mg Tablet) 25 mg PO DAILY [facility]; Protocol Lactated Ringer's (Lr) 1,000 mls @ 60 mls/hr IVCONT .[id number] [facility] Last Admin: 01/25/25 20:58 Dose: 60 mls/hr Documented By: JONATHAN Acetaminophen (Ofirmev) 1,000 mg in 100 mls @ 400 mls/hr IV Q6H [facility] Last Infusion: 01/26/25 03:34 Dose: Infused Documented By: JONATHAN Losartan Potassium (Losartan Potassium 50 Mg Tablet) 100 mg PO DAILY [facility]; Protocol Last Admin: 01/25/25 08:15 Dose: 100 mg Documented By: ESTEBAN Morphine Sulfate (Morphine Sulfate 4 Mg/Ml Cartridge) 4 mg IVPUSH Q4H PRN; Protocol PRN Reason: Pain, Severe (Pain Scale 7-10) Last Admin: 01/25/25 20:57 Dose: 4 mg Documented By: JONATHAN Omeprazole (Omeprazole 40 Mg Capsule.Dr) 40 mg PO DAILY@0630 [facility] Last Admin: 01/26/25 05:39 Dose: 40 mg Documented By: JONATHAN Sodium Chloride (0.9 % Sodium Chloride Flush 3 Ml Syringe) 3 ml IVFLUSH QSHIFT [facility] Last Admin: 01/25/25 21:48 Dose: Not Given Documented By: JONATHAN Non-Admin Reason: IV Running Tramadol HCl (Tramadol Hcl 50 Mg Tablet) 50 mg PO Q4H PRN PRN Reason: Pain, Moderate(Pain Scale 4-6) Vitamin D (Cholecalciferol (Vitamin D3) 25 Mcg Tablet) 25 mcg PO DAILY [facility] Last Admin: 01/25/25 08:15 Dose: 25 mcg Documented By: ESTEBAN <[facility] - Last Filed: 01/26/25 07:07> Labs CBC & Chem 7: 01/25/25 06:02 01/25/25 06:02 <[facility] - Last Filed: 01/26/25 07:07> Labs: Laboratory Results - last 24 hr 01/25/25 06:02 MCV 88.9 MCH 29.0 MCHC 32.6 RDW 13.7 Plt Count 196 MPV 9.8 Absolute Nucleated RBC 0.000 Nucleated RBC % (auto) 0.0 Anion Gap 13 Estim Creat Clear Calc 103.3 Estimated GFR > 60 Random Glucose 123 H Calcium 8.4 D <[facility] - Last Filed: 01/26/25 07:07> Procedures Date of Service Date of Service: 01/26/25 <[facility] - Last Filed: 01/26/25 07:07> 01/26/25 <Clarisa Duncan PA-C - Last Filed: 01/26/25 07:28> 01/27/25 <Edmund Thomason MD - Last Filed: 01/27/25 09:58> Progress Note: A&P Assessment and plan (1) S/P colon resection: Status: Acute <Suzette Trinh - Last Filed: 01/26/25 07:07> Assessment and Plan: Feels well Passing flatus She has been ambulating Good pain control Abdomen is soft and benign Incisions clean and dry Path report noted Plan to try once diet later on today Seen and examined independently <Edmund Thomason MD - Last Filed: 01/27/25 09:58> Assessment and Plan: 69 year old female POD2 from hand assisted laparoscopic right colon resection with anastomosis. Patient doing generally well postop, pain well controlled, mild diffuse tenderness to palpation over abd, mildly distended, only passing flatus, no BM yet. Dressings intact. Vital signs stable. Pathology report as follows: Colon, right, ileocolectomy: Residual tubulovillous adenoma with serrated features (1.4 cm); negative for high-grade dysplasia and carcinoma. -Margins free of adenoma. -Associated tattoo pigment present. -Appendix with no specific change. -Incidental nodular fat necrosis. -Seventeen benign lymph nodes. Plan: -dressing change today -continue pain management, as needed -continue gentle IVF -monitor for return of bowel function (flatus/BM) -encourage ambulation/OOB -continue incentive spirometry 10x/hour -tolerating clear liquids well, consider advancing diet if evidence of return of bowel function -continue DVT prophylaxis <Suzette Trinh - Last Filed: 01/26/25 07:07> 69 year old female POD2 from hand assisted laparoscopic right colon resection with anastomosis. Patient doing generally well postop, pain well controlled, mild diffuse tenderness to palpation over abd, mildly distended, only passing flatus, no BM yet. Dressings intact. Vital signs stable. Pathology report as follows: Colon, right, ileocolectomy: Residual tubulovillous adenoma with serrated features (1.4 cm); negative for high-grade dysplasia and carcinoma. -Margins free of adenoma. -Associated tattoo pigment present. -Appendix with no specific change. -Incidental nodular fat necrosis. -Seventeen benign lymph nodes. Plan: -dressing change today -continue pain management, as needed -continue gentle IVF -monitor for return of bowel function (flatus/BM) -encourage ambulation/OOB -continue incentive spirometry 10x/hour -tolerating clear liquids well, consider advancing diet if evidence of return of bowel function -continue DVT prophylaxis Agree with above assessment and plan by Ziggy ROMAN. POD #2 s/p Hand assisted laparoscopic right colon resection. Patient continues to do well post op, pain well controlled, some GI function but remains distended this morning, incisions clean. VSS.Will keep on clear liquids until more consistent flatus. Increase activity and ambulation, IS use. Gentle IVF, will dec. Patient comfortable with plan. Pathology reviewed. <Clarisa Duncan PA-C - Last Filed: 01/26/25 07:28> Time Spent With Patient Time: Total time managing care of this patient today ____ minutes. <Suzette Trinh - Last Filed: 01/26/25 07:07> Quality Stroke Does the patient have a stroke diagnosis?: No <Suzette Henriquez Last Filed: 01/26/25 07:07> VTE Prior VTE?: No <Suzette Trinh - Last Filed: 01/26/25 07:07> VTE Risk Level:: Medical - moderate - high <Suzette Henriquez Last Filed: 01/26/25 07:07> VTE Device Contraindication: N/A - Device Ordered <Suzette Henriquez Last Filed: 01/26/25 07:07> VTE Drug Contraindication: N/A - Med Ordered <Suzette Henriquez Last Filed: 01/26/25 07:07>
[2025-01-26 08:00] VITALS: BP 158/75; PULSE 68; RESP 16; TEMP 36.5; O2SAT 95
[2025-01-26] MEDS: busPIRone HCl 5 MG TABLET 7.5 MG PO (08:05)
[2025-01-26] MEDS: hydroCHLOROthiazide 25 MG TABLET PO (08:05)
[2025-01-26] MEDS: Losartan Potassium 50 MG TABLET 100 MG PO (08:05)
[2025-01-26] MEDS: Cholecalciferol (Vitamin D3) 25 MCG TABLET PO (08:05)
[2025-01-26] MEDS: Atorvastatin Calcium 80 MG TABLET PO (08:06)
[2025-01-26] MEDS: Aspirin Enteric Coated 81 MG TABLET.DR PO (08:06)
[2025-01-26] MEDS: Lactated Ringers 1,000 ML 60 ML IVCONT (13:18)
[2025-01-26 15:33] VITALS: BP 158/80; PULSE 63; RESP 18; TEMP 36.6; O2SAT 94
[2025-01-26 19:37] VITALS: BP 175/74; PULSE 74; RESP 18; TEMP 36.4; O2SAT 95
[2025-01-26] MEDS: Docusate Sodium 100 MG CAPSULE PO (20:48)
[2025-01-26 20:49] VITALS: BP 162/70; PULSE 73
[2025-01-26] MEDS: 0.9 % Sodium Chloride Flush 3 ML SYRINGE IVFLUSH (20:50)
[2025-01-27] MEDS: Heparin Sodium,Porcine 5,000 UNIT/ML VIAL 5000 UNIT SUBCUT ×2 (02:25→09:01)
[2025-01-27] MEDS: Acetaminophen 1,000 MG/100 ML PIGGYBACK 400 MG IV ×2 (02:27→07:51)
[2025-01-27 03:43] VITALS: BP 168/88; PULSE 78; RESP 18; TEMP 36.8; O2SAT 96
[2025-01-27] MEDS: Omeprazole 40 MG CAPSULE.DR PO (06:06)
[2025-01-27 07:34] VITALS: BP 166/72; PULSE 67; RESP 16; TEMP 36.6; O2SAT 96
--- NOTE | 2025-01-27 07:49 | P.PNGS_ITS ---
Subjective Subjective Date of Service: 01/27/25 <Clarisa Duncan PA-C - Last Filed: 01/27/25 07:54> 01/27/25 <Edmund Thomason MD - Last Filed: 01/27/25 09:57> Interval history: Had two BMs since yesterday. C/o mild discomfort throughout her abdomen with bloating. Tolerating solid diet. Ambulating halls. <Clarisa Duncan PA-C - Last Filed: 01/27/25 07:54> Physical Exam 2 Vital Signs: Vital Signs: Last Vital Signs Temp 97.8 F 01/27/25 07:34 Pulse 67 01/27/25 07:34 Resp 16 01/27/25 07:34 BP 166/72 H 01/27/25 07:34 Pulse Ox 96 01/27/25 07:34 O2 Del Method Room Air 01/27/25 07:34 O2 Flow Rate 2.0 01/25/25 07:30 FiO2 50 01/24/25 11:00 BMI result Body Mass Index 38.9 <Clarisa Duncan PA-C - Last Filed: 01/27/25 07:54> Const: General: comfortable, no acute distress and alert <Clarisa Duncan PA-C - Last Filed: 01/27/25 07:54> Orientation/consciousness: patient oriented x3 <STEFANY Christopher Last Filed: 01/27/25 07:54> Resp: Effort & Inspection: normal respiratory effort <Clarisa Duncan PA-C - Last Filed: 01/27/25 07:54> GI: Inspection: Yes distended (mild ) and Yes incision (clean) <Clarisa Duncan PA-C - Last Filed: 01/27/25 07:54> Palpation (GI): Soft to palpation, Tenderness to palpation present (GI) (mild incisional) and no guarding <STEFANY Christopher Last Filed: 01/27/25 07:54> Percussion: Yes normal to percussion <STEFANY Christopher Last Filed: 01/27/25 07:54> Skin: General skin exam: no rashes or lesions noted <Clarisa Duncan PA-C - Last Filed: 01/27/25 07:54> Neuro: General: patient oriented x3 and moves all extremities <Clarisa Duncan PA-C - Last Filed: 01/27/25 07:54> Objective Data Active Medications Albuterol Sulfate (Albuterol Sulfate 90 Mcg 8 Gm Inhaler) 2 puff INHALE Q6H PRN PRN Reason: bronchitis Aspirin (Aspirin Enteric Coated 81 Mg Tablet.) 81 mg PO DAILY [facility] Last Admin: 01/26/25 08:06 Dose: 81 mg Documented By: KAILA Atorvastatin Calcium (Atorvastatin Calcium 80 Mg Tablet) 80 mg PO DAILY [facility] Last Admin: 01/26/25 08:06 Dose: 80 mg Documented By: KAILA Buspirone HCl (Buspirone Hcl 5 Mg Tablet) 7.5 mg PO DAILY [facility] Last Admin: 01/26/25 08:05 Dose: 7.5 mg Documented By: KAILA Calcium Carbonate (Calcium Carbonate 750 Mg Tab.Chew) 750 mg PO Q4H PRN PRN Reason: Heartburn Last Admin: 01/24/25 18:18 Dose: 750 mg Documented By: CHASITY Docusate Sodium (Docusate Sodium 100 Mg Capsule) 100 mg PO BID [facility] Last Admin: 01/26/25 20:48 Dose: 100 mg Documented By: BLANCA Heparin Sodium (Porcine) (Heparin Sodium,Porcine 5,000 Unit/Ml Vial) 5,000 unit SUBCUT Q8H [facility] Last Admin: 01/27/25 02:25 Dose: 5,000 unit Documented By: BLANCA Hydrochlorothiazide (Hydrochlorothiazide 25 Mg Tablet) 25 mg PO DAILY [facility]; Protocol Last Admin: 01/26/25 08:05 Dose: 25 mg Documented By: KAILA Acetaminophen (Ofirmev) 1,000 mg in 100 mls @ 400 mls/hr IV Q6H [facility] Last Infusion: 01/27/25 02:43 Dose: Infused Documented By: BLANCA Losartan Potassium (Losartan Potassium 50 Mg Tablet) 100 mg PO DAILY [facility]; Protocol Last Admin: 01/26/25 08:05 Dose: 100 mg Documented By: KAILA Morphine Sulfate (Morphine Sulfate 4 Mg/Ml Cartridge) 4 mg IVPUSH Q4H PRN; Protocol PRN Reason: Pain, Severe (Pain Scale 7-10) Last Admin: 01/25/25 20:57 Dose: 4 mg Documented By: JONATHAN Omeprazole (Omeprazole 40 Mg Capsule.Dr) 40 mg PO DAILY@0630 [facility] Last Admin: 01/27/25 06:06 Dose: 40 mg Documented By: CATIAARTAngel Sodium Chloride (0.9 % Sodium Chloride Flush 3 Ml Syringe) 3 ml IVFLUSH QSHIFT [facility] Last Admin: 01/27/25 06:59 Dose: Not Given Documented By: HEATHER Non-Admin Reason: Previously Administered Tramadol HCl (Tramadol Hcl 50 Mg Tablet) 50 mg PO Q4H PRN PRN Reason: Pain, Moderate(Pain Scale 4-6) Vitamin D (Cholecalciferol (Vitamin D3) 25 Mcg Tablet) 25 mcg PO DAILY [facility] Last Admin: 01/26/25 08:05 Dose: 25 mcg Documented By: KAILA <Clarisa Duncan PA-C - Last Filed: 01/27/25 07:54> Labs CBC & Chem 7: 01/25/25 06:02 01/25/25 06:02 <Clarisa Duncan PA-C - Last Filed: 01/27/25 07:54> Procedures Date of Service Date of Service: 01/27/25 <Clarisa Duncan PA-C - Last Filed: 01/27/25 07:54> 01/27/25 <Edmund Thomason MD - Last Filed: 01/27/25 09:57> Progress Note: A&P Assessment and plan (1) S/P colon resection: Status: Acute <Clarisa Duncan PA-C - Last Filed: 01/27/25 07:54> Assessment and Plan: She says she has had BMs Continues to pass flatus Tolerating diet Feels well and says she is ready to be discharged Okay to [place] home today Instructions reinforced with patient Seen and examined independently <Edmund Thomason MD - Last Filed: 01/27/25 09:57> Assessment and Plan: POD #3 s/p Hand assisted laparoscopic right colon resection. Patient continues to do well post op, pain well controlled, good GI function and tolerating solid diet but c/o bloating this morning, incisions clean. VSS. Will reassess later this morning for likely dc to home. Patient comfortable with plan. <Clarisa Duncan PA-C - Last Filed: 01/27/25 07:54> Time Spent With Patient Time: Total time managing care of this patient today ____ minutes. <Clarisa Duncan PA-C - Last Filed: 01/27/25 07:54> Quality Stroke Does the patient have a stroke diagnosis?: No <Clarisa Duncan PA-C - Last Filed: 01/27/25 07:54> VTE Prior VTE?: No <Clarisa Duncan PA-C - Last Filed: 01/27/25 07:54> VTE Risk Level:: Medical - moderate - high <Clarisa Duncan PA-C - Last Filed: 01/27/25 07:54> VTE Device Contraindication: N/A - Device Ordered <STEFANY Christopher Last Filed: 01/27/25 07:54> VTE Drug Contraindication: N/A - Med Ordered <Clarisa Duncan PA-C - Last Filed: 01/27/25 07:54>
[2025-01-27] MEDS: Cholecalciferol (Vitamin D3) 25 MCG TABLET PO (07:53)
[2025-01-27] MEDS: hydroCHLOROthiazide 25 MG TABLET PO (07:53)
[2025-01-27] MEDS: Docusate Sodium 100 MG CAPSULE PO (07:53)
[2025-01-27] MEDS: Aspirin Enteric Coated 81 MG TABLET.DR PO (07:53)
[2025-01-27] MEDS: Losartan Potassium 50 MG TABLET 100 MG PO (07:53)
[2025-01-27] MEDS: busPIRone HCl 5 MG TABLET 7.5 MG PO (07:53)
[2025-01-27] MEDS: Atorvastatin Calcium 80 MG TABLET PO (07:53)
--- NOTE | 2025-01-27 11:01 | MHC.CM.PN ---
Addendum entered by Lulú Nevarez RN 01/27/25 12:01: Patient medically cleared for dc home self care via private transport. Original Note: Patient not medically cleared for dc at this time. CM will continue to follow.
--- NOTE | 2025-01-27 13:45 | P.DS_ITS ---
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 This was deemed to be non resectable endoscopically. [place] was [place]. She now presents for the planned procedure. HOSPITAL COURSE: On 01/24/25, Hand assisted laparoscopic right colon resection was performed by Dr. Thomason without complication. The patient tolerated the procedure well. She was admitted to the medical/surgical floor post operatively for observation. She had an uncomplicated recovery course. On POD #1, she was doing well with good pain control. Her jorgensen was removed. Her activity was increased and was ambulated. She was kept on clear liquids until she began to pass consistent flatus on POD #2. She was advanced to a solid diet. She began to move her bowels. On the day of discharge, she had good pain control on oral analgesics, had good GI function and was tolerating a solid diet without nausea or vomiting. She was ambulating without difficulty. Her abdomen was benign with clean incisions. She was hemodynamically stable. She was discharged to home on 01/27/25 in stable condition. She is to follow up in the office in 2 weeks. Status at Discharge Functional status at discharge: independent ambulation Overall status at discharge: patient is progressing back to baseline Time Attestation Discharge Coordination Time (in mins): 35 Quality: Safe Use of Opioids Does Pt have an Active Cancer Diagnosis on the Problem List?: No Quality: Stroke Does the patient have a stroke diagnosis?: No Physical Exam Vital Signs: Vital Signs: Last Vital Signs Temp 97.8 F 01/27/25 07:34 Pulse 67 01/27/25 07:34 Resp 16 01/27/25 07:34 BP 166/72 H 01/27/25 07:34 Pulse Ox 96 01/27/25 07:34 O2 Del Method Room Air 01/27/25 07:34 O2 Flow Rate 2.0 01/25/25 07:30 FiO2 50 01/24/25 11:00 BMI result Body Mass Index 38.9 Const: General: comfortable, no acute distress and alert Orientation/consciousness: patient oriented x3 Resp: Effort & Inspection: normal respiratory effort and not labored GI: Other: mildly distended incisions clean, steris intact mild incisional tenderness Percussion: Yes normal to percussion Skin: General skin exam: no rashes or lesions noted Neuro: General: patient oriented x3 and moves all extremities DS: Data Data Completed and Pending Completed studies during hospitalization [Text1]: 01/24/25 08:38 Surgical [PTH] Stat Colon, right, ileocolectomy: Residual tubulovillous adenoma with serrated features (1.4 cm); negative for high-grade dysplasia and carcinoma. -Margins free of adenoma. -Associated tattoo pigment present. -Appendix with no specific change. -Incidental nodular fat necrosis. -Seventeen benign lymph nodes. Discharge Plan Discharge Anticipated Discharge Date/Time: 01/27/25 11:17 Patient Disposition: Home, Self-Care Discharge Diagnosis: s/p right colon resection Referrals: Edmund Thomason MD [Physician] - 2 Weeks Tiara Reed MD [Primary Care Provider] - 1 Week Discharge Medications: New docusate sodium [Colace] 100 mg capsule 100 mg PO BID Qty: 30 0RF oxycodone 5 mg tablet 5 mg PO Q4H PRN (Reason: pain (scale score 7-10)) Qty: 20 0RF Rx Instructions: Partial Fill upon patient request. Continued losartan 50 mg tablet 100 mg PO QAM hydrochlorothiazide 25 mg tablet 25 mg PO QAM magnesium chloride 64 mg magnesium Tablet 64 mg PO QAM buspirone 7.5 mg tablet 7.5 mg PO DAILY omeprazole 20 mg Tablet,Delayed Release (Dr/Ec) 20 mg PO DAILY@0630 aspirin 81 mg capsule 81 mg PO QAM rosuvastatin 20 mg tablet 20 mg PO QAM cholecalciferol (vitamin D3) 25 mcg (1,000 unit) capsule 25 mcg PO QAM Discharge Orders: Discharge Order (Routine); Ordered 01/27/25 Ordered By: Clarisa Duncan Diet: Advance to usual diet Activity on Discharge: No heavy lifting Stand Alone Forms: Patient Portal Discharge page Print Language: Faroese Activity Restrictions/Additional Instructions: If the incision area is tender, you may apply an ice pack for short intervals (No more than 20 minutes on, followed by at least 20 minutes off). Do not apply heat. Do not use creams, lotions, or topical antibiotics. These can cause infection or allergic reaction. Ok to shower. No tub bath or swimming. You have steri strips (small white cloth strips) covering your incision- these will fall off ~1 week. Follow up in office with Dr. Thomason in 2 weeks. ([phone]) No heavy lifting (>10-20lbs) or strenuous activity! Call Your Doctor If: -Your temperature exceeds 101.5? F -You experience excessive pain or swelling -You have an unexpected reaction to medication -You have excessive bleeding -You experience continued vomiting/nausea -Your incision begins to separate -Your incision shows signs of infection such as increased redness, swelling, excessive pain, drainage (light blood or clear fluid is normal) or heat Care Plan Goals: Return to baseline health and resume normal activities following recovery period. Health Concerns: tubulovillous adenoma, hepatic flexure Plan of Treatment: s/p DANIELE right colon resection f/u in office in 2 weeks Assessment: Doing well post op Discharge Date/Time: 01/27/25 12:46
== END 2025-01-27 12:46 | disposition home or self-care (01) | DRG 331 ==
LOC: HO.SSSA 09:43 → HO.S3 09:50
PROVIDERS: Nurse Practitioner; Admitting Provider Surgery; PCP Student in an Organized Health Care Education/Training Program; Visit Provider Surgery
PROC: 0DTE0ZZ Resection of Large Intestine, Open Approach (ICD-10-PCS; principal; 2025-01-24 07:30)
DX: D12.3 Benign neoplasm of transverse colon (principal); G89.18 Other acute postprocedural pain; Z79.82 Long term (current) use of aspirin; Z79.899 Other long term (current) drug therapy
CPT/HCPCS: 36415; 80048; 85027; 86850; 86900; 86901; 88309; 88329; 93005; J0131; J1100; J1171; J1644; J2003; J2250; J2270; J2371; J2405; J2704; J2795; J3010; J7120

== ENCOUNTER → 2025-01-24 09:42 | Outpatient (BNV) | payer MEDICARE, BC, SELFPAY | PROVIDERS: Admitting Provider Surgery; PCP Student in an Organized Health Care Education/Training Program; Visit Provider Surgery | DX: D36.9 Benign neoplasm, unspecified site (principal); Z90.49 Acquired absence of other specified parts of digestive tract | CPT/HCPCS: 99024; 99499 ==

== ENCOUNTER → 2025-02-02 09:10 | Outpatient (BNVA) | payer MEDICARE, BC, SELFPAY | PROVIDERS: PCP Student in an Organized Health Care Education/Training Program; Visit Provider Surgery | DX: Z09 Encounter for follow-up examination after completed treatment for conditions other than malignant neoplasm (principal); Z98.890 Other specified postprocedural states | CPT/HCPCS: 99211 ==

== ENCOUNTER 2025-02-06 10:52 | Outpatient (AMB) | payer MEDICARE, BC, SELFPAY ==
--- NOTE | 2025-02-06 10:58 | MHC.OFFVIS ---
Vital Signs 02/06/25 10:59 Weight 205 lb BP 149/77 H Blood Pressure Location Rt brachial Position Sitting Pulse 73 Intake Visit Reasons: S/P HUITRON laparoscopic Rt colon resection poss open Intake Note: Patient here s/p Hand assisted laparoscopic right colon resection. Patient c/o: no concerns. Site on abdomen healing well. Surgery: 01-24-2025 Coater Smoking Pipe Required: No Accompanied by: Self / Same As Patient Allergies shellfish derived [shellfish] Allergy (Severe, Verified 02/06/25 10:58) passes out oxycodone [From PERCOCET] Adverse Reaction (Intermediate, Verified 02/06/25 10:58) paranoia/anxiety HPI HPI S/P HUITRON laparoscopic Rt colon resection poss open: Details: She is here for postop visit. She underwent hand assisted laparoscopic right colon resection last 01/24/2025 for a polyp in the click flexure. She was discharged on postop day 3. I opened up her incision last week with a Q-tip in view of some redness and seroma She has good oral intake. She had denies GI complaints. [facility] Medical History Duodenal ulcer Pre-syncope TIA (transient ischemic attack) Pre-diabetes Thyroid nodule Fatty liver Flat adenoma Colon polyp Depression GERD (gastroesophageal reflux disease) High cholesterol Hypertension Seizure disorder Morbid obesity Surgical History Hx of bilateral cataract extraction History of colonoscopy (~11/04/24) History of loop recorder S/P pilonidal cyst excision History of hysterectomy History of cholecystectomy H/O esophagogastroduodenoscopy (09/27/24) Family History Daughter Thyroid cancer Maternal Grandmother Colostomy in place Paternal Grandmother Diabetes Mother HTN (hypertension) Maternal Grandfather Heart disease Social History Household Members: Significant Other Housing: House Are you a primary wound care coordinator to a significant other at home: No Do you presently have visiting nurse or other home services: No Alcohol intake: current Alcohol intake frequency: holidays/special occasions only Patient Tobacco Use Status: Former Tobacco user Tobacco use type: Cigarette Years Smoked: 10 service: No Review of Systems Const Denies chills and Denies fever(s) Card Denies chest pain at rest Resp Denies cough GI Denies diarrhea and Denies vomiting Physical Exam Vital Signs: Last Vital Signs Pulse 73 02/06/25 10:59 BP 149/77 H 02/06/25 10:59 Const General: comfortable and no acute distress Resp Effort & Inspection: normal respiratory effort GI Other: Incisions well healed, slight scanty clear drainage from her midline incision Palpation (GI): Soft to palpation, not firm and no guarding Assessment & Plan Assessment & Plan (1) Colon polyp: Code(s): K63.5 - Polyp of colon Category: Medical Plan: Status post right colon resection. Her path report shows a tubulovillous adenoma with serrated features. Her incision is well healing. There is still note of some slight clear drainage consistent with a seroma I will see her again in the office in about another month for a postop visit. In the meantime, she was advised not do any heavy lifting of 20 lb. She is doing well overall. Coding Level of Care Code Tele New Pt Level 3 (09091) Global (99835) Diagnoses Colon polyp K63.5
[2025-02-06 10:59] VITALS: BP 149/77; PULSE 73
--- OUTSIDE RECORDS SUMMARY | 2025-02-06 12:22 | XMS_ITS | Clinical Summary ---
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
== END 2025-02-06 11:16 | disposition home or self-care (01) ==
LOC: HO.HGS 10:53
PROVIDERS: PCP Student in an Organized Health Care Education/Training Program; Visit Provider Surgery
DX: K63.5 Polyp of colon (principal)
CPT/HCPCS: 99024

== ENCOUNTER → 2025-02-06 10:52 | Outpatient (BNVA) | payer MEDICARE, BC, SELFPAY | PROVIDERS: PCP Student in an Organized Health Care Education/Training Program; Visit Provider Surgery | DX: Z48.815 Encounter for surgical aftercare following surgery on the digestive system (principal); K63.5 Polyp of colon; Z98.890 Other specified postprocedural states | CPT/HCPCS: 99212 ==

== ENCOUNTER 2025-03-15 10:10 | Outpatient (AMB) | payer MEDICARE, BC, SELFPAY ==
--- NOTE | 2025-03-15 10:11 | MHC.OFFVIS ---
Vital Signs 03/15/25 10:15 Weight 202 lb BP 140/88 H Blood Pressure Location Rt brachial Position Sitting Pulse 77 Intake Visit Reasons: S/P HUITRON laparoscopic Rt colon resection poss open Intake Note: Patient here status post right colon resection. Reports no changes since last visit February 06. Patient c/o: no concerns. 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 She continues to do well. She says that the drainage from the lower part of her incision has been decreasing although still present. She has good oral intake. [facility] Medical History Duodenal ulcer Pre-syncope TIA (transient ischemic attack) Pre-diabetes Thyroid nodule Fatty liver Flat adenoma Colon polyp Depression GERD (gastroesophageal reflux disease) High cholesterol Hypertension Seizure disorder Morbid obesity Surgical History Hx of bilateral cataract extraction History of colonoscopy (~11/04/24) History of loop recorder S/P pilonidal cyst excision History of hysterectomy History of cholecystectomy H/O esophagogastroduodenoscopy (09/27/24) Family History Daughter Thyroid cancer Maternal Grandmother Colostomy in place Paternal Grandmother Diabetes Mother HTN (hypertension) Maternal Grandfather Heart disease Social History Household Members: Significant Other Housing: House Are you a primary pharmacy customer care specialist to a significant other at home: No Do you presently have visiting nurse or other home services: No Alcohol intake: current Alcohol intake frequency: holidays/special occasions only Patient Tobacco Use Status: Former Tobacco user Tobacco use type: Cigarette Years Smoked: 10 service: No Review of Systems Const Denies chills and Denies fever(s) Card Denies chest pain, Denies dyspnea and Denies dyspnea on exertion Resp Denies cough, Denies dyspnea and Denies dyspnea on exertion GI Denies hematochezia and Denies change in bowel habits Denies hematuria Musc Denies back pain and Denies limited range of motion Neuro Denies focal weakness and Denies convulsions Psych Denies depression and Denies mood swings Physical Exam Vital Signs: Last Vital Signs Pulse 77 03/15/25 10:15 BP 140/88 H 03/15/25 10:15 Const General: comfortable and no acute distress Resp Effort & Inspection: normal respiratory effort GI Other: Incision well healed although there is note of a small area with very scanty drainage in the lower most part of the incision, no signs Palpation (GI): Soft to palpation Assessment & Plan Assessment & Plan (1) S/P colon resection: Code(s): Z90.49 - Acquired absence of other specified parts of digestive tract Category: Surgical Plan: She continues to do well. The incisions well healed. There is note of a area with very scanty drainage and I told her that this has likely due to reaction from her sutures. I expect this to resolve in the next month or 2. She can follow up with me on a p.r.n. basis. She is cleared to return to work without restrictions. Coding Level of Care Code Global (29599) Diagnoses S/P colon resection Z90.49
[2025-03-15 10:15] VITALS: BP 140/88; PULSE 77
--- OUTSIDE RECORDS SUMMARY | 2025-03-15 10:43 | XMS_ITS | Clinical Summary ---
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
--- OUTSIDE RECORDS SUMMARY | 2025-03-15 10:43 | XMS_ITS | Clinical Summary ---
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
== END 2025-03-15 10:27 | disposition home or self-care (01) ==
LOC: HO.HGS 10:11
PROVIDERS: PCP Student in an Organized Health Care Education/Training Program; Visit Provider Surgery
DX: Z90.49 Acquired absence of other specified parts of digestive tract (principal)
CPT/HCPCS: 99024

== ENCOUNTER → 2025-03-15 10:10 | Outpatient (BNVA) | payer MEDICARE, BC, SELFPAY | PROVIDERS: PCP Student in an Organized Health Care Education/Training Program; Visit Provider Surgery | DX: Z09 Encounter for follow-up examination after completed treatment for conditions other than malignant neoplasm (principal); Z90.49 Acquired absence of other specified parts of digestive tract | CPT/HCPCS: 99212 ==

== ENCOUNTER 2025-08-29 11:17 | Emergency (ER) | payer MEDICARE, BC, SELFPAY ==
--- NOTE | ~2025-08-29 | XR_ITS ---
EXAMINATION: XR ABDOMEN KUB CLINICAL INDICATION: foregin object COMPARISON: Foreign object. TECHNIQUE: AP view of the abdomen. FINDINGS: The bowel gas pattern is normal with no evidence of ileus or obstruction. No unusual soft tissue calcifications or radiopaque metallic foreign body seen. There are phleboliths seen in the pelvis. The bones are unremarkable. XR/XR KUB IMPRESSION: Unremarkable KUB examination. Electronically signed by: Nishant Diggs MD 08/29/2025 04:18 PM EST
--- NOTE | ~2025-08-29 | XR_ITS ---
EXAMINATION: XR SOFT TISSUE NECK CLINICAL INDICATION: swallowed metal FB COMPARISON: None available. TECHNIQUE: 2 views of the soft tissue neck were obtained. FINDINGS: Soft tissue films of the neck demonstrate a normal larynx, pharynx and upper trachea. No prevertebral soft tissue swelling or opaque foreign body is demonstrated. Normal epiglottis. Patent airway. There are spinal degenerative changes most notable C5-6 and C6-7. Imaged lung apices appear clear. XR/XR soft tissue neck IMPRESSION: No evidence of metallic foreign body in the upper thorax or neck. No prevertebral soft tissue swelling Electronically signed by: Kiran Driver MD 08/29/2025 12:54 PM EST
--- NOTE | ~2025-08-29 | XR_ITS ---
EXAMINATION: XR CHEST 2 VIEWS HISTORY: swallowed metal FB COMPARISON: Comparison is made with the prior examination dated 10/10/2024. FINDINGS: PA and lateral views of the chest are submitted. Implantable loop recorder is again seen in the left anterior chest wall. The lungs are expanded and clear. There is no pleural effusion, pneumothorax, or pulmonary vascular congestion. The heart is normal in size. There is degenerative disc disease of the spine. No radiopaque foreign body is identified. XR/XR chest 2V IMPRESSION: No acute cardiopulmonary abnormality. No radiopaque foreign body is identified. Electronically signed by: Berny Teran MD 08/29/2025 12:54 PM EST
[2025-08-29 12:10] VITALS: BP 191/88; PULSE 72; RESP 16; TEMP 37; O2SAT 95; BMI 35.8
--- NOTE | 2025-08-29 12:10 | ED.GENADULT ---
HPI - General Adult General Chief complaint: General Medical Stated complaint: swallowed foreign object Time Seen by Provider: 08/29/25 17:31 History of Present Illness ED Provider: IN ERROR DUPLICATE Related Data Home Medications ?Medication ?Instructions ?Recorded ?Confirmed aspirin 81 mg capsule 81 mg PO QAM 06/07/24 01/10/25 cholecalciferol (vitamin D3) 25 25 mcg PO QAM 06/07/24 01/10/25 mcg (1,000 unit) capsule rosuvastatin 20 mg tablet 20 mg PO QAM 06/07/24 01/10/25 hydrochlorothiazide 25 mg tablet 25 mg PO QAM 01/10/25 01/10/25 losartan 50 mg tablet 100 mg PO QAM 01/10/25 01/24/25 magnesium chloride 64 mg 64 mg PO QAM 01/10/25 01/10/25 (magnesium chloride) tablet buspirone 7.5 mg tablet 7.5 mg PO DAILY 01/24/25 01/24/25 omeprazole 20 mg tablet,delayed 20 mg PO DAILY@0630 01/24/25 01/24/25 release Previous Rx's ?Medication ?Instructions ?Recorded docusate sodium 100 mg capsule 100 mg PO BID #30 caps 01/26/25 (Colace) Allergies Allergy/AdvReac Type Severity Reaction Status Date / Time shellfish derived (shellfish) Allergy Severe passes Verified 08/29/25 12:14 out oxycodone (From PERCOCET) AdvReac Intermediate paranoia/an Verified 08/29/25 12:14 xiety [facility] Past Medical History Medical History Duodenal ulcer Pre-syncope TIA (transient ischemic attack) Pre-diabetes Thyroid nodule Fatty liver Flat adenoma Colon polyp Depression GERD (gastroesophageal reflux disease) High cholesterol Hypertension Seizure disorder Morbid obesity Surgical History Hx of bilateral cataract extraction History of colonoscopy (~11/04/24) History of loop recorder S/P pilonidal cyst excision History of hysterectomy History of cholecystectomy H/O esophagogastroduodenoscopy (09/27/24) Family History Family History Daughter Thyroid cancer Maternal Grandmother Colostomy in place Paternal Grandmother Diabetes Mother HTN (hypertension) Maternal Grandfather Heart disease Social History Social History Household Members: Significant Other Housing: House Are you a primary child day care teacher to a significant other at home: No Do you presently have visiting nurse or other home services: No Alcohol intake: current Alcohol intake frequency: holidays/special occasions only Patient Tobacco Use Status: Former Tobacco user Tobacco use type: Cigarette Years Smoked: 10 Advance Directives: No Advance Directives Information Provided: No service: No Physical Exam ED Vital Signs: BMI result Body Mass Index 35.8 Course Course Course Narrative: This is a Rapid Medical Exam performed in triage by Lita Myers PA-C. Full HPI, ROS and PE to be performed by primary ED provider. 70 yo F w/pmhx GERD presenting to the ED c/o swallowing metal FB that was in brownie 1hr [employer]. states office received X-mas treat platter & bit something in brownies & pulled metal out of her mouth & swallowed the rest. denies SOB, CP. has not eaten/ drank since incident PE: NAD, talking in complete sentences, no respiratory distress Plan: X-rays Discharge Plan Discharge Clinical Impression: Dysphagia Patient Disposition: Home, Self-Care Instructions: Dysphagia (ED) Additional Instructions: We saw no evidence of any metallic or radioopaque foreign body in the throat chest or abd. Prescriptions: No Action losartan 50 mg tablet 100 mg PO QAM hydrochlorothiazide 25 mg tablet 25 mg PO QAM magnesium chloride 64 mg magnesium Tablet 64 mg PO QAM buspirone 7.5 mg tablet 7.5 mg PO DAILY omeprazole 20 mg Tablet,Delayed Release (Dr/Ec) 20 mg PO DAILY@0630 docusate sodium [Colace] 100 mg capsule 100 mg PO BID Qty: 30 0RF aspirin 81 mg capsule 81 mg PO QAM rosuvastatin 20 mg tablet 20 mg PO QAM cholecalciferol (vitamin D3) 25 mcg (1,000 unit) capsule 25 mcg PO QAM Discharge Date/Time: 08/29/25 17:44 Print Language: [place]
--- NOTE | 2025-08-29 17:31 | ED.GENADULT ---
HPI - General Adult General Chief complaint: General Medical Stated complaint: swallowed foreign object Time Seen by Provider: 08/29/25 17:31 History of Present Illness HPI narrative: Author / Clinician: Avery Dutton MD Chief Complaint Foreign body sensation in throat/chest; numbness History of Present Illness 70-year-old female presents reporting that she ?swallowed some metal and brown ink.? She describes a foreign body sensation that began in the throat and now feels as though it is in her chest. She also notes ?a lot of numbness,? though she did not further localize the area of numbness during the encounter. She denies difficulty eating, drinking, or breathing. A neck radiograph performed prior to or during this visit was reviewed and reported as negative for a radiopaque foreign body. --- Review of Systems - Neurologic: Positive for numbness (location not specified). - ENT/GI: Positive for foreign body sensation in throat/chest; denies difficulty swallowing food or liquids. - Respiratory: Denies difficulty breathing. --- Physical Examination Vital Signs: Measure Value ------- ----- Physical Exam: Gen: Alert, awake, well appearing, well hydrated. Head: Atraumatic. Eyes: Anicteric, normal conjunctiva. ENT: Moist mucosa, no pallor. Neck: Supple. Skin: Respiratory: Breathing comfortably, no distress. Clear to auscultation bilaterally, symmetric chest expansion, no wheeze, rales, or rhonchi. Cardiovascular: Regular rate and rhythm. No murmurs or rubs. Well-perfused periphery, warm extremities. No edema. Abdominal: Soft, no objective distension. No palpable masses or obvious organomegaly. No focal tenderness, guarding, or rebound. Neuro: Alert. Gross movement of all extremities intact. Psych: Calm. HEARS OF THE FRAGMENT SHE ?COUGHED UP ?SHE FEELS PERHAPS SOME OF THIS WHEN DOWN AND WAS INGESTED NO COUGH OR PERSONAL CONCERN BY THE PATIENT FOR ASPIRATION. THIS IS A SOFT STRINGY POSSIBLY FOIL LIKE OR ALUMINUM LIKE METALLIC APPEARING STRING LIKE MATERIAL THAT IS ABOUT 1.5 CM LONG --- Medical Decision Making Preliminary Differential: - Suspected foreign body ingestion This is a 70-YEAR-OLD FEMALE WITH PERSONAL CONCERN FOR ABRASION OF THE THROAT AND/OR INGESTED FOREIGN BODY, METALLIC Imaging reviewed: No radiopaque foreign body identified. No radial feet seen on imaging. --- Plan: Initial Plan - Reviewed neck radiograph ? no radiopaque foreign body identified. Independent Data Analysis/Interpretation: - Imaging: Independent interpretation of neck radiograph ? negative for radiopaque foreign body. - ECG: Independent interpretation of the ECG: [ ] - POCUS: if performed independently see separate documentation Additional Complexity: - Social Determinants of health: [ ] - Consults: [ ] - Independent review of External records available: [ ] Risk: - Low: Acute Uncomplicated --- ED Course, Updates [ ] Neck radiograph reviewed ? negative for foreign body. Disposition [ ] Critical Care: [N/A] Onset (ago): minute(s) Related Data Home Medications ?Medication ?Instructions ?Recorded ?Confirmed aspirin 81 mg capsule 81 mg PO QAM 06/07/24 01/10/25 cholecalciferol (vitamin D3) 25 25 mcg PO QAM 06/07/24 01/10/25 mcg (1,000 unit) capsule rosuvastatin 20 mg tablet 20 mg PO QAM 06/07/24 01/10/25 hydrochlorothiazide 25 mg tablet 25 mg PO QAM 01/10/25 01/10/25 losartan 50 mg tablet 100 mg PO QAM 01/10/25 01/24/25 magnesium chloride 64 mg 64 mg PO QAM 01/10/25 01/10/25 (magnesium chloride) tablet buspirone 7.5 mg tablet 7.5 mg PO DAILY 01/24/25 01/24/25 omeprazole 20 mg tablet,delayed 20 mg PO DAILY@0630 01/24/25 01/24/25 release Previous Rx's ?Medication ?Instructions ?Recorded docusate sodium 100 mg capsule 100 mg PO BID #30 caps 01/26/25 (Colace) Allergies Allergy/AdvReac Type Severity Reaction Status Date / Time shellfish derived (shellfish) Allergy Severe passes Verified 08/29/25 12:14 out oxycodone (From PERCOCET) AdvReac Intermediate paranoia/an Verified 08/29/25 12:14 xiety [facility] Past Medical History Medical History Duodenal ulcer Pre-syncope TIA (transient ischemic attack) Pre-diabetes Thyroid nodule Fatty liver Flat adenoma Colon polyp Depression GERD (gastroesophageal reflux disease) High cholesterol Hypertension Seizure disorder Morbid obesity Surgical History Hx of bilateral cataract extraction History of colonoscopy (~11/04/24) History of loop recorder S/P pilonidal cyst excision History of hysterectomy History of cholecystectomy H/O esophagogastroduodenoscopy (09/27/24) Family History Family History Daughter Thyroid cancer Maternal Grandmother Colostomy in place Paternal Grandmother Diabetes Mother HTN (hypertension) Maternal Grandfather Heart disease Social History Social History Household Members: Significant Other Housing: House Are you a primary ocular care technician to a significant other at home: No Do you presently have visiting nurse or other home services: No Alcohol intake: current Alcohol intake frequency: holidays/special occasions only Patient Tobacco Use Status: Former Tobacco user Tobacco use type: Cigarette Years Smoked: 10 Advance Directives: No Advance Directives Information Provided: No service: No Physical Exam ED Vital Signs: Vital Signs - 24 hr 08/29/25 12:10 08/29/25 17:38 Temperature 98.6 F 97.9 F Pulse Rate 72 65 Respiratory Rate 16 16 Blood Pressure 191/88 H 188/86 H Pulse Oximetry 95 98 Oxygen Delivery Method Room Air Room Air BMI result Body Mass Index 35.8 Discharge Plan Discharge Clinical Impression: Dysphagia Patient Disposition: Home, Self-Care Instructions: Dysphagia (ED) Additional Instructions: We saw no evidence of any metallic or radioopaque foreign body in the throat chest or abd. Prescriptions: No Action losartan 50 mg tablet 100 mg PO QAM hydrochlorothiazide 25 mg tablet 25 mg PO QAM magnesium chloride 64 mg magnesium Tablet 64 mg PO QAM buspirone 7.5 mg tablet 7.5 mg PO DAILY omeprazole 20 mg Tablet,Delayed Release (Dr/Ec) 20 mg PO DAILY@0630 docusate sodium [Colace] 100 mg capsule 100 mg PO BID Qty: 30 0RF aspirin 81 mg capsule 81 mg PO QAM rosuvastatin 20 mg tablet 20 mg PO QAM cholecalciferol (vitamin D3) 25 mcg (1,000 unit) capsule 25 mcg PO QAM Discharge Date/Time: 08/29/25 17:44 Print Language: German
[2025-08-29 17:38] VITALS: BP 188/86; PULSE 65; RESP 16; TEMP 36.6; O2SAT 98
--- OUTSIDE RECORDS SUMMARY | 2025-08-29 19:14 | XMS_ITS | Clinical Summary ---
Author Organization [facility] Address [address] [place] [id number] Phone Care Team Providers [employer] Consultant Name Role Phone Unavailable Primary Care Provider Unavailabl e Medications estradiol (ESTRING) 2 mg (7.5 mcg /24 hour) vaginal ring as directed Vaginal once every 3 months 01/01/2017 Active lisinopril (PRINIVIL,ZESTR IL) 10 MG tablet Take 1 tablet by mouth daily. Active aspirin 81 MG EC tablet Take 1 tablet by mouth daily. Active amLODIPine (NORVASC) 5 MG tablet Take 1 tablet by mouth daily. Active carBAMazepine (TEGRETOL) 200 mg tablet Take 1 tablet by mouth 2 (two) times a day. Active cholecalciferol , vitamin D3, 1,000 unit capsule Take 1 capsule by mouth daily. Active PARoxetine (PAXIL) 40 MG tablet Take 1 tablet by mouth every morning. Active Family History Medical History Relation Comments Hyperlipidemia Father Hypertension Father Cancer Maternal Grandmother Bipolar disorder Mother Hypertension Mother Osteoporosis Mother Psychiatric disorder Mother Diabetes mellitus Paternal Grandmother Diabetes Unspecified Heart attack Unspecified Relation Status Comments Father Maternal Grandmother Mother Paternal Grandmother Unspecified Social History Tobacco Use Types Packs/Day Years Used Date Smoking Tobacco: Never Assessed Education Answer Date Recorded Are you interested in more education? Not on imelda e 12/26/2022 Are you concerned about learning? Not on file 12/26/2022 No 12/26/2022 No 12/26/2022 Digital Access Answer Date Recorded No 01/24/2023 No 01/24/2023 Reliable internet access at home? Not on file 01/24/2023 Device with a working camera? Not on file Comments Unknown Sex and Gender Information Value Date Recorded Sex Assigned at Not on file Legal Sex Female 9:56 PM EDT Gender Identity Not on file Sexual Orientation Not on file Last Filed Vital Signs Vital Sign Reading Time Taken Comments Blood Pressure 120/62 01/01/2017 9:22 AM EDT Pulse - - Temperature - - Respiratory Rate - - Oxygen Saturation - - Inhaled Oxygen Concentration - - Weight 75.3 kg (166 lb) 01/01/2017 9:22 AM EDT Height 157.5 cm (5' 2 ) 01/01/2017 9:22 AM EDT Body Mass Index 30.36 01/01/2017 9:22 AM EDT Plan of Treatment Health Maintenance Due Date Last Done Comments Adult Td,Tdap Booster 1955 CARBAMAZEPINE (TEGRETOL) LEVEL 1954 CREATININE LEVEL 1954 LIPID PANEL 1954 POTASSIUM LEVEL 1954 DEPRESSION SCREENING 1966 SMOKING Hx and SMOKELESS TOBACCO SCREENING 1967 HEPATITIS C SCREENING 1972 COLOGUARD 1999 COLONOSCOPY 1999 COLORECTAL CANCER SCREENING 1999 FIT TEST 1999 FOBT 1999 SIGMOIDOSCOPY 1999 VIRTUAL COLONOSCOPY 1999 PNEUMOCOCCAL VACCINES (50+ years) (1 of 1 - PCV) 2004 OSTEOPOROSIS SCREENING INITI AL (ONE-TIME) 2019 MAMMOGRAM 12/22/2020 12/22/2018 INFLUENZA VACCINE (#1) 2025 0, 06/22/2019, 05/22/2018 COVID-19 VACCINE (2 - 2024-2 6 season) 2025 12/04/2020 RSV VACCINE (1 - 1-dose 75+ series) 2029 ZOSTER VACCINES Completed 07/27/2020, 05/26/2020 HEPATITIS A VACCINES Aged Out No long er eligible based on patient's age to complete this topic HIB VACCINES Aged Out No longer eligi ble based on patient's age to complete this topic MENINGOCOCCAL VACCINES (ACWY) Aged Out No longer eligible based on patient's age to complete this topic MENINGOCOCCAL VACCINES (B) Aged Out N o longer eligible based on patient's age to complete this topic Medical Devices Not on file Procedures Procedure Name Priority Date/Time Associated Diagnosis Comments HM MAMMOGRAPHY Routine 12/22/2018 from Last 3 Months or Most Recently Relevant to Health Maintenance Results * MAMMOGRAPHY FOR RESULT ENTRY ONLY (12/22/2018) Alexus Rowe MD HEALTH MAINTENANCE F inal Result from Last 3 Months or Most Recently Relevant to Health Maintenance Additional Source Comments The information contained in this document represents components of the legal health record. It is not the complete legal health record.[facility]
--- OUTSIDE RECORDS SUMMARY | 2025-08-29 19:14 | XMS_ITS | Clinical Summary ---
Author Organization [facility] it Address [address] [place] [address] Care Team Providers Care [employer] Worker Name Role Phone Unavailable Primary Care Provider [...] Last Done Comments Breast Cancer Screening 1955 Colorectal Cancer Screening: Colonoscopy 1954 DTaP,Tdap,and Td Vaccines (1 - Tdap) 1973 Pneumococcal Vaccine: 50+ Ye ars (1 of 1 - PCV) 2004 Zoster Vaccines (1 of 2) 2004 Falls Risk Assessment 08/02/2022 Hepatitis C Screening 08/02/2022 Osteoporosis Screening (Bone Density Screening) 08/02/2022 Social Influencers of Health Screening 08/02/2022 Depression Screening 08/31/2024 COVID-19 Vaccine (1 - 2024-2 6 season) 2025 Influenza Vaccine (#1) 2025 RSV Immunization Adult [...]
== END 2025-08-29 17:44 | disposition home or self-care (01) ==
LOC: HO.ED 17:41
PROVIDERS: Emergency Provider Emergency Medicine; PCP Student in an Organized Health Care Education/Training Program
DX: R13.10 Dysphagia, unspecified (principal); E11.9 Type 2 diabetes mellitus without complications; I10 Essential (primary) hypertension; E78.00 Pure hypercholesterolemia, unspecified; Z86.73 Personal history of transient ischemic attack (TIA), and cerebral infarction without residual deficits; Z87.891 Personal history of nicotine dependence; Z79.02 Long term (current) use of antithrombotics/antiplatelets; Z79.82 Long term (current) use of aspirin; Z79.899 Other long term (current) drug therapy
CPT/HCPCS: 70360; 71046; 74018; 99283

== ENCOUNTER → 2025-08-29 12:12 | Outpatient (BNV) | payer MEDICARE, BC, SELFPAY | PROVIDERS: PCP Student in an Organized Health Care Education/Training Program; Visit Provider Radiology Diagnostic Radiology | DX: Z03.89 Encounter for observation for other suspected diseases and conditions ruled out (principal); T18.2XXA Foreign body in stomach, initial encounter | CPT/HCPCS: 70360; 71046; 74018 ==